=== PATIENT | male | born 1975 | race Caucasian/White ===

== ENCOUNTER 2016-12-13 14:07 | Inpatient (IN) ==
[2016-12-13 15:12] LABS: Bilirubin,Urine Negative (Negative); Blood,Urine Negative (Negative); Clarity,Urine Clear (Clear); Color,Urine Yellow (Yellow); Glucose,Urine (UA) >=1000 mg/dL (Normal); Ketones,Urine Negative (Negative); Leukocyte Esterase,Urine Negative (Negative); Nitrite,Urine Negative (Negative); Protein,Urine Negative (Neg-Trace); Specific Gravity,Urine > 1.030 (1.010-1.025); Urobilinogen,Urine Normal (Normal)
[2016-12-13 15:16] LABS: Amphetamine Screen,Urine Negative ng/mL (Cutoff=1000); Barbiturate Screen,Urine Negative ng/mL (Cutoff=200); Benzodiazepines Screen,Urine Negative ng/mL (Cutoff=200); Cannabinoid Screen,Urine Negative ng/mL (Cutoff = 50); Cocaine Screen,Urine Negative ng/mL (Cutoff= 300); Opiate Screen,Urine Negative ng/mL (Cutoff=300); Phencyclidine Screen,Urine Negative ng/mL (Cutoff=25)
[2016-12-13 15:38] LABS: Basophils # 0.1 K/mcL (0.0-0.2); Basophils % 0.5 %; Eosinophils # 0.1 K/mcL (0.0-0.6); Eosinophils % 1.5 %; Hematocrit 43.3 % (37.5-50.1); Hemoglobin 15.1 g/dL (12.9-16.9); Immature Granulocytes % 0.8 % (0-4); Lymphocytes # 1.8 K/mcL (0.6-4.6); Lymphocytes % 19.2 %; Mean Corpuscular HGB Conc 34.9 g/dL (31.6-35.5); Mean Corpuscular Hemoglobin 30.3 pg (28.0-33.3); Mean Corpuscular Volume 86.8 fL (83.0-100.0); Mean Platelet Volume 9.3 fL (9.4-12.4); Monocytes # 0.7 K/mcL (0.0-1.3); Monocytes % 7.2 %; Neutrophils # 6.6 K/mcL (1.6-8.9); Platelet Count 220 K/mcL (140-400); Red Blood Count 4.99 M/mcL (4.19-5.50); Segmented Neutrophils % 70.8 %
[2016-12-13 15:51] LABS: BUN/Creatinine Ratio 22 (6-26); Blood Urea Nitrogen 34 mg/dL (8-26); Calcium 9.3 mg/dL (8.6-10.8); Carbon Dioxide 21 mEq/L (19-29); Chloride 105 mEq/L (98-109); Glucose 237 mg/dL (70-99); Osmolality,Calculated 295 (280-300); Sodium 135 mEq/L (136-145); eGFR For African Americans 60 (> 60); eGFR For Non-African Americans 49 (> 60)
[2016-12-13 15:52] LABS: Ethanol < 10 mg/dL (0-10); Salicylate < 5.0 mg/dL (15-30)
--- NOTE | 2016-12-13 16:26 | Emergency Department Note ---
Disposition Clinical Impression: Suicidal ideation Disposition: Admitted As Inpatient Condition: Good Time of Disposition: 19:30 Psych HPI - General Chief Complaint: ED Psychiatric Symptoms Stated Complaint: SI Time Seen by Provider: 12/13/16 14:36 Source: patient Limitations: no limitations Nursing Notes Reviewed: Yes Vital Signs Reviewed: Yes - History of Present Illness HPI Narrative: 41-year-old male presents with concerns of suicidal ideation. Patient states that he was recently dumped by his significant other and had thoughts about ending his life. Patient states he held a razor to his wrist while contemplating ending his life. He has had multiple episodes of suicidal ideation in the past with previous attempts at cutting his wrists. Patient also had thoughts about overdosing on his medications but did not take any because he did not know which one would be the best to kill himself. - Related Data Home Medications Medication Instructions Recorded Confirmed CarBAMazepine [Tegretol] 200 mg PO BID 06/19/15 01/07/16 Chlorhexidine Gluconate [Peridex] 15 ml MM BID 06/19/15 01/07/16 Glimepiride [Amaryl] 4 mg PO DAILY 06/19/15 01/07/16 LORazepam [Ativan] 1 mg PO Q6HR 06/19/15 01/07/16 Metformin [Glucophage] 1,000 mg PO BIDWM 06/19/15 01/07/16 Metoprolol [Lopressor] 25 mg PO BID 06/19/15 01/07/16 OLANZapine [Zyprexa] 10 mg PO DAILY 06/19/15 01/07/16 SitaGLIPtin [Januvia] 100 mg PO DAILY 06/19/15 01/07/16 TraZODone 300 mg PO HS 06/19/15 01/07/16 Trihexyphenidyl [Artane] 2 mg PO QPM 06/19/15 01/07/16 Insulin ASPART [NovoLOG] 10 unit SQ TIDWM 11/22/15 01/07/16 Previous Rx's Medication Instructions Recorded Insulin DETEMIR [Levemir] 110 unit SQ BID 30 Days 06/20/15 Allergies Allergy/AdvReac Type Severity Reaction Status Date / Time latex Allergy Rash Verified 09/14/16 08:30 Penicillins [PCN] Allergy Rash Verified 09/14/16 08:30 All systems ED: reviewed and negative except as stated. Constitutional: Denies: fever, chills, weakness Eyes: Denies: eye pain Cardiovascular: Denies: chest pain, palpitations, dyspnea on exertion, orthopnea Respiratory: Denies: cough, dyspnea, wheezes Gastrointestinal: Denies: abdominal pain, nausea, vomiting Genitourinary: Denies: urgency, dysuria Musculoskeletal: Denies: back pain, neck pain Past Medical History - Past Medical History Attestation: Yes The following information was validated with the patient. Source: patient Medical history: Reports: diabetes, hypertension, seizures Surgical history: Reports: colostomy, orthopedic, other, other Psychiatric history: Reports: anxiety, bipolar, depression, schizophrenia - Social History Smoking Status: Never smoker Smokeless Tobacco Status: Yes Alcohol use: Reports: none Drug use: Reports: none Physical Exam General: Alert and in no acute distress Skin: Warm, dry, intact Head: Normocephalic and atraumatic Neck: Supple, trachea midline and no tenderness Cardiovascular: RRR, no murmur, normal perfusion Respiratory: CTAB, no wheezing, cough, or respiratory distress Musculoskeletal: Normal strength, no tenderness, swelling or deformity GI: Soft, nontender, nondistended. Bowel sounds present Neuro: A&O to person, place, time and situation. No focal deficits noted on exam. Finger to nose testing and [id number] testing intact bilaterally. Cranial nerve exam intact to examination. No sensory deficits on exam. Psychiatric: cooperative and appropriate mood and affect. - General Limitations: no limitations General appearance: alert Course Vital Signs Temperature 97.6 F 12/13/16 14:22 Pulse Rate 82 12/13/16 14:22 Respiratory Rate 18 12/13/16 14:22 Blood Pressure 117/76 12/13/16 14:22 O2 Sat by Pulse Oximetry 97 12/13/16 14:22 Temperature 97.8 F 12/13/16 19:31 Pulse Rate 82 12/13/16 14:22 Respiratory Rate 18 12/13/16 19:31 Blood Pressure 114/72 12/13/16 19:31 O2 Sat by Pulse Oximetry 12/13/16 14:22 Oxygen Delivery Oxygen Delivery Room Air Psych - MDM Narrative Medical decision making narrative: Patient seen by behavioral health who found it necessary for the patient to stay in the hospital for continuation of care. Patient is comfortable with the plan for admission to the psychiatric unit. - Lab Data Result diagrams: 12/13/16 15:31 12/13/16 15:31 Lab Results 12/13/16 12/13/16 12/13/16 Range/Units 15:00 15:00 15:31 WBC 9.3 (4.3-11.1) K/mcL RBC 4.99 (4.19-5.50) M/mcL Hgb 15.1 (12.9-16.9) g/dL Hct 43.3 (37.5-50.1) % MCV 86.8 (83.0-100.0) fL MCH 30.3 (28.0-33.3) pg MCHC 34.9 (31.6-35.5) g/dL RDW 14.0 (11.5-14.5) % Plt Count 220 (140-400) K/mcL MPV 9.3 L (9.4-12.4) fL Immature Gran % 0.8 (0-4) % Seg Neutrophils % 70.8 % Lymphocytes % 19.2 % Monocytes % 7.2 % Eosinophils % 1.5 % Basophils % 0.5 % Neutrophils # 6.6 (1.6-8.9) K/mcL Lymphocytes # 1.8 (0.6-4.6) K/mcL Monocytes # 0.7 (0.0-1.3) K/mcL Eosinophils # 0.1 (0.0-0.6) K/mcL Basophils # 0.1 (0.0-0.2) K/mcL Sodium (136-145) mEq/L Potassium (3.5-4.5) mEq/L Chloride (98-109) mEq/L Carbon Dioxide (19-29) mEq/L BUN (8-26) mg/dL Creatinine (0.72-1.25) mg/dL Est GFR ( Amer) (> 60) Est GFR (Non-Af Amer) (> 60) BUN/Creatinine Ratio (6-26) Glucose (70-99) mg/dL Calculated Osmolality (280-300) Calcium (8.6-10.8) mg/dL Urine Color Yellow (Yellow) Urine Clarity Clear (Clear) Urine pH 6.0 (5.0-8.0) pH Units Ur Specific [place] > 1.030 H (1.010-1.025) Urine Protein Negative (Neg-Trace) mg/dL Urine Glucose (UA) >=1000 H (Normal) mg/dL Urine Ketones Negative (Negative) mg/dL Urine Blood Negative (Negative) Urine Nitrite Negative (Negative) Urine Bilirubin Negative (Negative) Urine Urobilinogen Normal (Normal) mg/dL Ur Leukocyte Esterase Negative (Negative) Salicylates (15-30) mg/dL Urine Opiates Screen Negative (Fpvrgw=589) ng/mL Acetaminophen (10-30) mcg/mL Ur Barbiturates Screen Negative (Dnuvuw=075) ng/mL Ur Phencyclidine Scrn Negative (Cutoff=25) ng/mL Ur Amphetamines Screen Negative (Vozdjc=8027) ng/mL U Benzodiazepines Scrn Negative (Ikbwqd=791) ng/mL Urine Cocaine Screen Negative (Cutoff= 300) ng/mL U Marijuana (THC) Screen Negative (Cutoff = 50) ng/mL Ethyl Alcohol (0-10) mg/dL 12/13/16 Range/Units 15:31 WBC (4.3-11.1) K/mcL RBC (4.19-5.50) M/mcL Hgb (12.9-16.9) g/dL Hct (37.5-50.1) % MCV (83.0-100.0) fL MCH (28.0-33.3) pg MCHC (31.6-35.5) g/dL RDW (11.5-14.5) % Plt Count (140-400) K/mcL MPV (9.4-12.4) fL Immature Gran % (0-4) % Seg Neutrophils % % Lymphocytes % % Monocytes % % Eosinophils % % Basophils % % Neutrophils # (1.6-8.9) K/mcL Lymphocytes # (0.6-4.6) K/mcL Monocytes # (0.0-1.3) K/mcL Eosinophils # (0.0-0.6) K/mcL Basophils # (0.0-0.2) K/mcL Sodium 135 L (136-145) mEq/L Potassium 5.0 H (3.5-4.5) mEq/L Chloride 105 (98-109) mEq/L Carbon Dioxide 21 (19-29) mEq/L BUN 34 H (8-26) mg/dL Creatinine 1.55 H (0.72-1.25) mg/dL Est GFR ( Amer) 60 (> 60) Est GFR (Non-Af Amer) 49 L (> 60) BUN/Creatinine Ratio 22 (6-26) Glucose 237 H (70-99) mg/dL Calculated Osmolality 295 (280-300) Calcium 9.3 (8.6-10.8) mg/dL Urine Color (Yellow) Urine Clarity (Clear) Urine pH (5.0-8.0) pH Units Ur Specific [place] (1.010-1.025) Urine Protein (Neg-Trace) mg/dL Urine Glucose (UA) (Normal) mg/dL Urine Ketones (Negative) mg/dL Urine Blood (Negative) Urine Nitrite (Negative) Urine Bilirubin (Negative) Urine Urobilinogen (Normal) mg/dL Ur Leukocyte Esterase (Negative) Salicylates < 5.0 L (15-30) mg/dL Urine Opiates Screen (Deincf=746) ng/mL Acetaminophen 7.0 L (10-30) mcg/mL Ur Barbiturates Screen (Gnfupz=396) ng/mL Ur Phencyclidine Scrn (Cutoff=25) ng/mL Ur Amphetamines Screen (Vzrqtf=3977) ng/mL U Benzodiazepines Scrn (Mjmhkw=466) ng/mL Urine Cocaine Screen (Cutoff= 300) ng/mL U Marijuana (THC) Screen (Cutoff = 50) ng/mL Ethyl Alcohol < 10 (0-10) mg/dL - EKG Data EKG attestation: Yes I reviewed and interpreted this EKG. EKG results narrative: ECG - interpreted by ED physician. Rate 103 sinus tachycardia QRS 105 QTc 350 Psychiatric Medical Clearance - Medical Clearance Checklist Medical History: No Social History Section defined Current Vitals: Last Vital Signs Temp 97.8 F 12/13/16 19:31 Pulse 82 12/13/16 14:22 Resp 18 12/13/16 19:31 BP 114/72 12/13/16 19:31 Pulse Ox 97 12/13/16 14:22 Psychiatric Lab Panel: Drug Levels and Toxicity 12/13/16 12/13/16 15:00 15:31 Urine Opiates Screen Negative Acetaminophen 7.0 L Ur Barbiturates Screen Negative Ur Phencyclidine Scrn Negative Ur Amphetamines Screen Negative U Benzodiazepines Scrn Negative Urine Cocaine Screen Negative U Marijuana (THC) Screen Negative Ethyl Alcohol < 10 Abnormal Labs: Abnormal lab results MPV 9.3 fL (9.4-12.4) L 12/13/16 15:31 Sodium 135 mEq/L (136-145) L 12/13/16 15:31 Potassium 5.0 mEq/L (3.5-4.5) H 12/13/16 15:31 BUN 34 mg/dL (8-26) H 12/13/16 15:31 Creatinine 1.55 mg/dL (0.72-1.25) H 12/13/16 15:31 Est GFR (Non-Af Amer) 49 (> 60) L 12/13/16 15:31 Glucose 237 mg/dL (70-99) H 12/13/16 15:31 Ur Specific [place] > 1.030 (1.010-1.025) H 12/13/16 15:00 Urine Glucose (UA) >=1000 mg/dL (Normal) H 12/13/16 15:00 Salicylates < 5.0 mg/dL (15-30) L 12/13/16 15:31 Acetaminophen 7.0 mcg/mL (10-30) L 12/13/16 15:31 Statement of Medical Clearance: I have evaluated the patient, reviewed diagnostic information, and certify that the patient's medical condition is sufficiently stable that transfer to the psychiatric unit does not pose a significant risk of deterioration.
[2016-12-13] MEDS ORDERED: Haloperidol Lactate 5 MG/ML VIAL IM PRN (21:04)
[2016-12-13] MEDS ORDERED: Ibuprofen 400 MG TABLET PO PRN (21:04)
[2016-12-13] MEDS ORDERED: *HR* LORazepam 2 MG/ML VIAL IM PRN (21:04)
[2016-12-13] MEDS ORDERED: hydrOXYzine pamoate 25 MG CAPSULE PO PRN (21:04)
[2016-12-13] MEDS ORDERED: *HR* LORazepam 1 MG TABLET PO PRN (21:04)
[2016-12-13] MEDS ORDERED: Mag Hydrox/Al Hydrox/Simeth 30 ML UDC PO PRN (21:04)
[2016-12-13] MEDS ORDERED: MOM Conc 10 ML UD.LIQ PO PRN (21:04)
[2016-12-13] MEDS ORDERED: Dextrose Gel 15 GM PO PRN ×2 (21:08)
[2016-12-13] MEDS ORDERED: Insulin LISPRO 300 UNITS/3 ML VIAL SQ SCH (21:15)
[2016-12-13] MEDS: traZODone 50 MG TABLET PO PRN ×2 (21:42→23:45)
[2016-12-13] MEDS ORDERED: traZODone 50 MG TABLET PO PRN (23:17)
[2016-12-13] MEDS ORDERED: NON-FORMULARY MEDICATION 1 EACH EACH (Quetiapine Fumarate [Seroquel] 400 MG) PO SCH (23:30)
[2016-12-13] MEDS: Gabapentin 300 MG CAPSULE PO SCH (23:45)
[2016-12-13] MEDS: Famotidine 20 MG TABLET PO SCH (23:45)
[2016-12-14] MEDS ORDERED: Insulin LISPRO 300 UNITS/3 ML VIAL SQ SCH (07:30)
[2016-12-14] MEDS: Fenofibrate 54 MG TABLET PO SCH (08:25)
[2016-12-14] MEDS: Gabapentin 300 MG CAPSULE PO SCH ×2 (08:26→20:30)
[2016-12-14] MEDS: Famotidine 20 MG TABLET PO SCH ×2 (08:27→20:30)
[2016-12-14] MEDS: *HR* Metformin 500 MG TABLET PO SCH ×2 (08:27→16:40)
[2016-12-14] MEDS: INVOKANA 100 MG PO SCH (08:27)
[2016-12-14] MEDS: FLUoxetine 20 MG CAPSULE PO SCH (08:27)
[2016-12-14] MEDS: *HR* LORazepam 1 MG TABLET PO SCH ×3 (08:30→20:36)
--- NOTE | 2016-12-14 11:00 | Psychiatry History & Physical ---
Date of Encounter: 12/14/16 Time of Encounter: 10:56 History of Present Illness Patient Stated Chief Complaint: Suicidal Medicare Admission Attestation: For traditional Medicare patients the provided hospital inpatient services are reasonable and necessary and in the case of services not specified as inpatient -only under 42 CFR 419.22 (n), that they are appropriately provided as inpatient services in accordance 42 CFR 412.3. For Critical Access Hospital the patient may reasonably be expected to be discharged or transferred to a hospital within 96 hours after admission to the Critical Access Hospital. Admitted From: Emergency Dept History of Present Illness: Mr. Chow is a 41 year old male admitted from the emergency room for depression with suicidal ideation. His girlfriend broke up with him and he felt hopeless and hopeless and became suicidal, is also homeless. Patient has a history of mental health treatment and hospitalization in the past, he also attends group therapy every day and was followed by psychiatrist as outpatient and on medication. He denies any use of alcohol or drugs and is compliant with his medication. Past Med Surg Social Fam HX - Past Medical History Medical history: diabetes, hypertension, seizures - Past Psychiatric History Psychiatric history: Reports: depression, previous psychiatric hospitalization - Past Surgical History Surgical History: colostomy, orthopedic, other, other - Social History Smoking Status: Never smoker Smokeless Tobacco Status: Yes Alcohol use: none Drug use: none Medications & Allergies Atorvastatin [Lipitor] 40 mg PO HS 12/13/16 [History] Canagliflozin [Invokana] 100 mg PO DAILY 12/13/16 [History] FLUoxetine HCl [PROzac] 60 mg PO DAILY 12/13/16 [History] Famotidine [Heartburn Prevention] 20 mg PO BID 12/13/16 [History] Fenofibrate Nanocrystallized [Tricor] 145 mg PO DAILY 12/13/16 [History] Gabapentin [Neurontin] 300 mg PO BID 12/13/16 [History] Insulin Regular U-500 [HumuLIN R U-500] 0 unit 12/13/16 [History] LORazepam [Ativan] 1 mg PO 0900,1500,2100 12/13/16 [History] Lisinopril [Zestril] 10 mg PO DAILY 12/13/16 [History] Meloxicam 15 mg PO DAILY 12/13/16 [History] Metformin [Glucophage] 1,000 mg PO BIDWM 12/13/16 [History] Metoprolol [Lopressor] 25 mg PO BID 12/13/16 [History] Quetiapine Fumarate [Seroquel] 400 mg PO BID 12/13/16 [History] Trazodone HCl 300 mg PO HS PRN 12/13/16 [History] Trihexyphenidyl [Artane] 2 mg PO HS 12/13/16 [History] Insulin ASPART [Novolog Flexpen] 0 unit SQ TID 12/14/16 [History] Allergies latex Allergy (Verified 12/14/16 10:06) Rash Penicillins [PCN] Allergy (Verified 12/14/16 10:06) Rash Review of Systems Psychiatric: Reports: suicidal ideation Mental Status Exam Patient orientation: Yes Person, Yes Time, Yes Place Level of alertness: Alert Patient appearance: Appropriate, Unkempt, Disheveled Behavior: calm, cooperative, withdrawn Psychomotor activity: Slowed Eye contact: Maintains Eye Contact Mood description: Depressed, Anxious, Irritable Affect description: constricted, anxious Speech pattern: Normal rate, Normal rhythm, Normal tone, Limited Speech volume: Normal Thought process: Linear, Goal Oriented Thought content: Yes Suicidal ideation, No Homicidal ideation, No Overt delusions, Yes Obsessive thoughts Perceptual disturbances: No Auditory hallucinations, No Visual hallucinations Attention span: Capable of Focused Attention Memory description: Grossly Intact Patient reliability: Reliable Historian Intelligence estimate: Average Judgment: Limited Insight: Partial Results - Vital Signs Vital signs: Temp Pulse Resp BP Pulse Ox 98.4 F 103 18 116/80 97 12/14/16 08:11 12/14/16 08:11 12/14/16 08:11 12/14/16 08:11 12/13/16 14:22 - Labs Labs: Laboratory Last Values WBC 9.3 K/mcL (4.3-11.1) 12/13/16 15:31 RBC 4.99 M/mcL (4.19-5.50) 12/13/16 15:31 Hgb 15.1 g/dL (12.9-16.9) 12/13/16 15:31 Hct 43.3 % (37.5-50.1) 12/13/16 15:31 MCV 86.8 fL (83.0-100.0) 12/13/16 15:31 MCH 30.3 pg (28.0-33.3) 12/13/16 15: MCHC 34.9 g/dL (31.6-35.5) 12/13/16 15: RDW 14.0 % (11.5-14.5) 12/13/16 15:31 Plt Count 220 K/mcL (140-400) 12/13/16 15:31 MPV 9.3 fL (9.4-12.4) L 12/13/16 15: Immature Gran % 0.8 % (0-4) 12/13/16 15: Seg Neutrophils % 70.8 % 12/13/16 15: Lymphocytes % 19.2 % 12/13/16 15: Monocytes % 7.2 % 12/13/16 15: Eosinophils % 1.5 % 12/13/16 15: Basophils % 0.5 % 12/13/16 15: Neutrophils # 6.6 K/mcL (1.6-8.9) 12/13/16 15: Lymphocytes # 1.8 K/mcL (0.6-4.6) 12/13/16 15: Monocytes # 0.7 K/mcL (0.0-1.3) 12/13/16 15: Eosinophils # 0.1 K/mcL (0.0-0.6) 12/13/16 15: Basophils # 0.1 K/mcL (0.0-0.2) 12/13/16 15:31 Sodium 135 mEq/L (136-145) L 12/13/16 15:31 Potassium 5.0 mEq/L (3.5-4.5) H 12/13/16 15: Chloride 105 mEq/L (98-109) 12/13/16 15:31 Carbon Dioxide 21 mEq/L (19-29) 12/13/16 15:31 BUN 34 mg/dL (8-26) H 12/13/16 15:31 Creatinine 1.55 mg/dL (0.72-1.25) H 12/13/16 15:31 Est GFR ( Amer) 60 (> 60) 12/13/16 15:31 Est GFR (Non-Af Amer) 49 (> 60) L 12/13/16 15:31 BUN/Creatinine Ratio 22 (6-26) 12/13/16 15:31 Glucose 237 mg/dL (70-99) H 12/13/16 15:31 POC Glucose 250 (58-89) H 12/14/16 05:57 Calculated Osmolality 295 (280-300) 12/13/16 15:31 Calcium 9.3 mg/dL (8.6-10.8) 12/13/16 15:31 Urine Color Yellow (Yellow) 12/13/16 15:00 Urine Clarity Clear (Clear) 12/13/16 15:00 Urine pH 6.0 pH Units (5.0-8.0) 12/13/16 15:00 Ur Specific [place] > 1.030 (1.010-1.025) H 12/13/16 15:00 Urine Protein Negative mg/dL (Neg-Trace) 12/13/16 15:00 Urine Glucose (UA) >=1000 mg/dL (Normal) H 12/13/16 15:00 Urine Ketones Negative mg/dL (Negative) 12/13/16 15:00 Urine Blood Negative (Negative) 12/13/16 15:00 Urine Nitrite Negative (Negative) 12/13/16 15:00 Urine Bilirubin Negative (Negative) 12/13/16 15:00 Urine Urobilinogen Normal mg/dL (Normal) 12/13/16 15:00 Ur Leukocyte Esterase Negative (Negative) 12/13/16 15:00 Salicylates < 5.0 mg/dL (15-30) L 12/13/16 15:31 Urine Opiates Screen Negative ng/mL (Pwcxwl=095) 12/13/16 15:00 Acetaminophen 7.0 mcg/mL (10-30) L 12/13/16 15:31 Ur Barbiturates Screen Negative ng/mL (Tvzave=137) 12/13/16 15:00 Ur Phencyclidine Scrn Negative ng/mL (Cutoff=25) 12/13/16 15:00 Ur Amphetamines Screen Negative ng/mL (Xfydni=5451) 12/13/16 15:00 U Benzodiazepines Scrn Negative ng/mL (Leepar=987) 12/13/16 15:00 Urine Cocaine Screen Negative ng/mL (Cutoff= 300) 12/13/16 15:00 U Marijuana (THC) Screen Negative ng/mL (Cutoff = 50) 12/13/16 15:00 Ethyl Alcohol < 10 mg/dL (0-10) 12/13/16 15:31 Assessment and Plan (1) Major depression, recurrent Current visit: Yes Status: Acute Plan: Admit inpatient for safety and stabilization, Close observation, Suicide Precautions per unit protocol, Encourage participation in unit milieu, Group Therapy, Monitor sleep, Monitor appetite Qualifiers: Active/Remission status: currently active Major depression episode severity : severe Psychotic features: with psychotic features Qualified Code(s): F33.3 - Major depressive disorder, recurrent, severe with psychotic symptoms
[2016-12-14] MEDS ORDERED: Dextrose Gel 15 GM PO PRN ×2 (11:41)
[2016-12-14] MEDS: Nicotine 2 MG GUM BC PRN ×2 (12:26→14:37)
--- NOTE | 2016-12-14 16:21 | Electrocardiograph Report ---
[address] [place], [place] [address] Test Date: 2016-12-13 Pat Name: Delvis Chow Department: 105 Room: 1A24 Gender: M Identity Management Consultant: : [id number] Requested By: Stevenson Abrams Order Number: [id number] Reading MD: Stevenson Bhatia Measurements Intervals [place] Rate: 103 P: 36 IL: 189 QRS: 19 QRSD: 105 T: 51 QT: 338 QTc: 398 Interpretive Statements SINUS TACHYCARDIA ABNORMAL RHYTHM ECG Electronically Signed On 12-14-2016 16:19:41 EST by Stevenson Bhatia
[2016-12-14] MEDS: Insulin LISPRO 300 UNITS/3 ML VIAL SQ SCH ×2 (16:40→20:28)
[2016-12-15] MEDS: Nicotine 2 MG GUM BC PRN ×5 (06:19→20:13)
[2016-12-15] MEDS: Insulin LISPRO 300 UNITS/3 ML VIAL SQ SCH ×4 (08:16→21:08)
[2016-12-15] MEDS: FLUoxetine 20 MG CAPSULE PO SCH (08:48)
[2016-12-15] MEDS: Fenofibrate 54 MG TABLET PO SCH (08:48)
[2016-12-15] MEDS: Gabapentin 300 MG CAPSULE PO SCH ×2 (08:48→21:02)
[2016-12-15] MEDS: *HR* Metformin 500 MG TABLET PO SCH ×2 (08:48→16:43)
[2016-12-15] MEDS: Famotidine 20 MG TABLET PO SCH ×2 (08:48→21:02)
[2016-12-15] MEDS: *HR* LORazepam 1 MG TABLET PO SCH ×3 (08:50→22:17)
[2016-12-15] MEDS: INVOKANA 100 MG PO SCH (08:50)
--- NOTE | 2016-12-15 12:48 | Psychiatry Progress Note ---
Date of Encounter: 12/15/16 Time of Encounter: 12:44 Subjective Interval history: Patient is here for follow-up. Nursing staff reported patient is not compliant with his his diabetic diets and consume high carbohydrate snacks. The patient stated that he was able to sleep and participated in some groups. He continued to display depressed towards and an anxiety and he is concerned about his living situation after he was kicked out of his girlfriend house. Social work is trying to place him in a crisis Bed. He is taking his medication his ADLs are poor disheveled and unkempt. He is denying suicidal ideation but continued to be depressed. Review of Systems Psychiatric: Reports: depression, anxiety, abnormal sleep pattern Objective: Exam Patient orientation: Yes Person, Yes Time, Yes Place Level of alertness: Alert Patient appearance: Unkempt, Disheveled Behavior: calm, cooperative, guarded, withdrawn Psychomotor activity: Slowed Eye contact: Maintains Eye Contact Mood description: Depressed, Anxious, Irritable Affect description: constricted, anxious Speech pattern: Normal rate, Normal rhythm, Normal tone, Limited Speech volume: Normal Thought process: Linear, Goal Oriented, Circumstantial Thought content: No Homicidal ideation, No Overt delusions, Yes Obsessive thoughts Perceptual disturbances: No Auditory hallucinations, No Visual hallucinations Judgment: Limited Insight: Partial Results - Vital Signs Vital Signs: Temp Pulse Resp BP Pulse Ox 97.4 F L 80 16 125/83 97 12/15/16 08:23 12/15/16 08:23 12/15/16 08:23 12/15/16 08:23 12/13/16 14:22 - Labs Labs: Laboratory Results - last 24 hr 12/14/16 12/14/16 12/15/16 16:19 19:45 07:45 POC Glucose 210 H 185 H 324 H 12/15/16 11:39 POC Glucose 308 H Assessment and Plan (1) Major depression, recurrent Current visit: Yes Status: Acute Plan: Continue hospitalization, Close observation, Suicide Precautions per unit protocol, Encourage participation in unit milieu, Group Therapy, Monitor sleep, Monitor appetite Qualifiers: Active/Remission status: currently active Major depression episode severity : severe Psychotic features: with psychotic features Qualified Code(s): F33.3 - Major depressive disorder, recurrent, severe with psychotic symptoms Consult Discharge Plan - Plan Referrals: [facility] [Outside] - 12/22/16 8:00 am (The above appointemnt is with Mandy. You will also see Nury Sidhu, psychiatric prescriber, on 2016 at 12:00pm.)
[2016-12-16] MEDS: Insulin LISPRO 300 UNITS/3 ML VIAL SQ SCH ×4 (08:04→20:47)
[2016-12-16] MEDS: *HR* Metformin 500 MG TABLET PO SCH ×2 (08:13→16:42)
[2016-12-16] MEDS: FLUoxetine 20 MG CAPSULE PO SCH (08:15)
[2016-12-16] MEDS: Fenofibrate 54 MG TABLET PO SCH (08:15)
[2016-12-16] MEDS: Gabapentin 300 MG CAPSULE PO SCH ×2 (08:15→20:44)
[2016-12-16] MEDS: Famotidine 20 MG TABLET PO SCH ×2 (08:16→20:44)
[2016-12-16] MEDS: Nicotine 2 MG GUM BC PRN ×5 (08:16→20:43)
[2016-12-16] MEDS: *HR* LORazepam 1 MG TABLET PO SCH ×3 (08:21→20:46)
[2016-12-16] MEDS: INVOKANA 100 MG PO SCH (08:22)
--- NOTE | 2016-12-16 14:56 | Psychiatry Progress Note ---
Date of Encounter: 12/16/16 Time of Encounter: 14:53 Subjective Interval history: Patient seen for follow-up. Nursing staff report he is participating in groups and compliant with medication. He has been denying suicidal ideation but he is concerned about his living situation and awaiting open beds at the crisis unit. Patient denies any problems sleeping and display depressed mood and affect and and anxiety. I discussed with him practice problem solving and options for treatment. Review of Systems Psychiatric: Reports: depression, anxiety, abnormal sleep pattern Objective: Exam Patient orientation: Yes Person, Yes Time, Yes Place Level of alertness: Alert Patient appearance: Appropriate, Unkempt Behavior: calm, cooperative, anxious, guarded, withdrawn Psychomotor activity: Slowed Eye contact: Maintains Eye Contact Mood description: Depressed, Anxious, Irritable Affect description: constricted, anxious Speech pattern: Normal rate, Normal rhythm, Normal tone, Limited Speech volume: Normal Thought process: Linear, Goal Oriented, Circumstantial Thought content: No Homicidal ideation, No Overt delusions, Yes Obsessive thoughts Perceptual disturbances: No Auditory hallucinations, No Visual hallucinations Judgment: Limited Insight: Partial Results - Vital Signs Vital Signs: Temp Pulse Resp BP Pulse Ox 97.6 F 18 79 121/88 97 12/16/16 09:00 12/16/16 09:00 12/16/16 09:00 12/16/16 09:00 12/13/16 14:22 - Labs Labs: Laboratory Results - last 24 hr 12/15/16 12/15/16 12/16/16 16:22 20:08 07:55 POC Glucose 222 H 274 H 285 H 12/16/16 11:38 POC Glucose 272 H Assessment and Plan (1) Major depression, recurrent Current visit: Yes Status: Acute Plan: Continue hospitalization, Close observation, Suicide Precautions per unit protocol, Encourage participation in unit milieu, Group Therapy, Monitor sleep, Monitor appetite Qualifiers: Active/Remission status: currently active Major depression episode severity : severe Psychotic features: with psychotic features Qualified Code(s): F33.3 - Major depressive disorder, recurrent, severe with psychotic symptoms Consult Discharge Plan - Plan Referrals: [facility] [Outside] - 12/22/16 8:00 am (The above appointemnt is with Mandy. You will also see Nury Sidhu, psychiatric prescriber, on 2016 at 12:00pm.)
[2016-12-17] MEDS: Nicotine 2 MG GUM BC PRN ×7 (02:46→20:37)
[2016-12-17] MEDS: Insulin LISPRO 300 UNITS/3 ML VIAL SQ SCH ×4 (08:07→20:38)
[2016-12-17] MEDS: *HR* Metformin 500 MG TABLET PO SCH ×2 (08:19→16:31)
[2016-12-17] MEDS: INVOKANA 100 MG PO SCH (08:24)
[2016-12-17] MEDS: Famotidine 20 MG TABLET PO SCH ×2 (08:33→20:32)
[2016-12-17] MEDS: FLUoxetine 20 MG CAPSULE PO SCH (08:33)
[2016-12-17] MEDS: *HR* LORazepam 1 MG TABLET PO SCH ×3 (08:33→20:34)
[2016-12-17] MEDS: Gabapentin 300 MG CAPSULE PO SCH ×2 (08:33→20:32)
[2016-12-17] MEDS: Fenofibrate 54 MG TABLET PO SCH (08:34)
--- NOTE | 2016-12-17 14:53 | Psychiatry Progress Note ---
Date of Encounter: 12/17/16 Time of Encounter: 14:50 Subjective Interval history: Patient is here for follow-up. Nursing staff report he is minimally participating in groups, he is preoccupied with his living situation and awaiting available crisis bed. He is compliant with medication but noncompliant with his diet and consume large amounts of carbohydrate snacks and he is blood sugars are elevated he was redirected and advised regarding this issue several times. He denies suicidal ideation but his passive regarding work and on his current needs and seeking answers from the staff. Review of Systems Psychiatric: Reports: depression, anxiety, abnormal sleep pattern Objective: Exam Patient orientation: Yes Person, Yes Time, Yes Place Level of alertness: Alert Patient appearance: Appropriate, Unkempt Behavior: calm, cooperative, anxious, guarded, withdrawn Psychomotor activity: Slowed Eye contact: Maintains Eye Contact Mood description: Depressed, Anxious, Irritable Affect description: constricted, anxious Speech pattern: Normal rate, Normal rhythm, Normal tone, Limited Speech volume: Normal Thought process: Linear, Goal Oriented, Circumstantial Thought content: No Homicidal ideation, No Overt delusions, Yes Obsessive thoughts Perceptual disturbances: No Auditory hallucinations, No Visual hallucinations Judgment: Limited Insight: Partial Results - Vital Signs Vital Signs: Temp Pulse Resp BP Pulse Ox 97.9 F 94 18 116/70 97 12/17/16 08:36 12/17/16 08:36 12/17/16 08:36 12/17/16 08:36 12/13/16 14:22 - Labs Labs: Laboratory Results - last 24 hr 12/16/16 12/16/16 12/17/16 16:31 20:01 07:45 POC Glucose 253 H 330 H 404 H* 12/17/16 12/17/16 07:48 11:40 POC Glucose 337 H 315 H Assessment and Plan (1) Major depression, recurrent Current visit: Yes Status: Acute Plan: Continue hospitalization, Close observation, Suicide Precautions per unit protocol, Encourage participation in unit milieu, Group Therapy, Monitor sleep, Monitor appetite Qualifiers: Active/Remission status: currently active Major depression episode severity : severe Psychotic features: with psychotic features Qualified Code(s): F33.3 - Major depressive disorder, recurrent, severe with psychotic symptoms Consult Discharge Plan - Plan Referrals: [facility] [Outside] - 12/22/16 8:00 am (The above appointemnt is with Mandy. You will also see Nury Sidhu, psychiatric prescriber, on 2016 at 12:00pm.)
[2016-12-18] MEDS: *HR* Metformin 500 MG TABLET PO SCH ×2 (07:13→16:56)
[2016-12-18] MEDS: Nicotine 2 MG GUM BC PRN ×5 (07:26→19:26)
[2016-12-18] MEDS: Fenofibrate 54 MG TABLET PO SCH (08:52)
[2016-12-18] MEDS: Gabapentin 300 MG CAPSULE PO SCH ×2 (08:53→20:31)
[2016-12-18] MEDS: Famotidine 20 MG TABLET PO SCH ×2 (08:55→20:31)
[2016-12-18] MEDS: FLUoxetine 20 MG CAPSULE PO SCH (08:55)
[2016-12-18] MEDS: INVOKANA 100 MG PO SCH (08:56)
[2016-12-18] MEDS: Insulin LISPRO 300 UNITS/3 ML VIAL SQ SCH ×4 (08:56→20:34)
[2016-12-18] MEDS: *HR* LORazepam 1 MG TABLET PO SCH ×3 (08:59→20:33)
--- NOTE | 2016-12-18 11:28 | Psychiatry Progress Note ---
Date of Encounter: 12/18/16 Time of Encounter: 10:00 Subjective Interval history: Patient seen and interviewed. History and physical examination reviewed. Patient is reporting of doing pretty decent however complaining of some anxiety and nervousness related to his housing situation. Patient is reassured and counseled that he will be going to [facility] upon discharge and will have a stable living situation. Patient is encouraged to attend groups and participated in activities. He has been tolerating medications fairly well. His suicidal ideations that subsided for most part. Overall doing good. Awaiting placement. Review of Systems Psychiatric: Reports: anxiety Objective: Exam Patient orientation: Yes Person, Yes Time, Yes Place Level of alertness: Alert Patient appearance: Appropriate, Unkempt Behavior: calm, cooperative, anxious, guarded, withdrawn Psychomotor activity: Slowed Eye contact: Maintains Eye Contact Mood description: Depressed, Anxious, Irritable Affect description: constricted, anxious Speech pattern: Normal rate, Normal rhythm, Normal tone, Limited Speech volume: Normal Thought process: Linear, Goal Oriented, Circumstantial Thought content: No Suicidal ideation, No Homicidal ideation, No Overt delusions , Yes Obsessive thoughts Perceptual disturbances: No Auditory hallucinations, No Visual hallucinations Judgment: Limited Insight: Partial Results - Vital Signs Vital Signs: Temp Pulse Resp BP Pulse Ox 97.8 F 79 16 114/80 97 12/18/16 08:28 12/18/16 08:28 12/18/16 08:28 12/18/16 08:28 12/13/16 14:22 - Labs Labs: Laboratory Results - last 24 hr 12/17/16 12/17/16 12/17/16 11:40 16:18 19:47 POC Glucose 315 H 281 H 339 H 12/18/16 12/18/16 12/18/16 07:12 08:45 08:46 POC Glucose 361 H 402 H* 375 H 12/18/16 11:23 POC Glucose 363 H Assessment and Plan (1) Major depression, recurrent Current visit: Yes Status: Acute Plan: Continue hospitalization, Close observation, Suicide Precautions per unit protocol, Encourage participation in unit milieu, Group Therapy, Monitor sleep, Monitor appetite Additional Plan: Continue with current medications. Awaiting placement. Risks, benefits, side effects, alternatives discussed w/pt: Yes Patient agreeable to treatment: Yes Qualifiers: Active/Remission status: currently active Major depression episode severity : severe Psychotic features: with psychotic features Qualified Code(s): F33.3 - Major depressive disorder, recurrent, severe with psychotic symptoms Consult Discharge Plan - Plan Referrals: [facility] [Outside] - 12/22/16 8:00 am (The above appointemnt is with Mandy. You will also see Nury Sidhu, psychiatric prescriber, on 2016 at 12:00pm.)
[2016-12-19] MEDS: *HR* Metformin 500 MG TABLET PO SCH ×2 (08:30→16:46)
[2016-12-19] MEDS: *HR* LORazepam 1 MG TABLET PO SCH ×3 (08:30→20:18)
[2016-12-19] MEDS: FLUoxetine 20 MG CAPSULE PO SCH (08:30)
[2016-12-19] MEDS: Famotidine 20 MG TABLET PO SCH ×2 (08:32→20:13)
[2016-12-19] MEDS: Gabapentin 300 MG CAPSULE PO SCH ×2 (08:32→20:13)
[2016-12-19] MEDS: INVOKANA 100 MG PO SCH (08:33)
[2016-12-19] MEDS: Fenofibrate 54 MG TABLET PO SCH (08:33)
[2016-12-19] MEDS: Nicotine 2 MG GUM BC PRN ×5 (08:34→19:48)
[2016-12-19] MEDS: Insulin LISPRO 300 UNITS/3 ML VIAL SQ SCH ×4 (08:35→20:14)
--- NOTE | 2016-12-19 12:25 | Psychiatry Progress Note ---
Date of Encounter: 12/19/16 Time of Encounter: 12:23 Subjective Interval history: Patient seen and interviewed. Doing okay. Denied any suicidal or homicidal ideations. Appears slightly anxious and nervous but overall feels good. Positive and future oriented. Awaiting placement at [facility]. Review of Systems Psychiatric: Reports: anxiety Objective: Exam Patient orientation: Yes Person, Yes Time, Yes Place Level of alertness: Alert Patient appearance: Appropriate, Unkempt Behavior: calm, cooperative, anxious, guarded, withdrawn Psychomotor activity: Slowed Eye contact: Maintains Eye Contact Mood description: Anxious Affect description: constricted, anxious Speech pattern: Normal rate, Normal rhythm, Normal tone, Limited Speech volume: Normal Thought process: Linear, Goal Oriented, Circumstantial Thought content: No Suicidal ideation, No Homicidal ideation, No Overt delusions , Yes Obsessive thoughts Perceptual disturbances: No Auditory hallucinations, No Visual hallucinations Judgment: Fair Insight: Partial Results - Vital Signs Vital Signs: Temp Pulse Resp BP Pulse Ox 98.4 F 83 18 114/81 97 12/19/16 08:08 12/19/16 08:08 12/19/16 08:08 12/19/16 08:08 12/13/16 14:22 - Labs Labs: Laboratory Results - last 24 hr 12/18/16 12/18/16 12/19/16 16:00 20:10 07:57 POC Glucose 329 H 329 H 362 H 12/19/16 11:28 POC Glucose 329 H Assessment and Plan (1) Major depression, recurrent Current visit: Yes Status: Acute Plan: Continue hospitalization, Close observation, Suicide Precautions per unit protocol, Encourage participation in unit milieu, Group Therapy, Monitor sleep, Monitor appetite Additional Plan: Continue with current medications. Possible discharge tomorrow to [facility]. Risks, benefits, side effects, alternatives discussed w/pt: Yes Patient agreeable to treatment: Yes Qualifiers: Active/Remission status: currently active Major depression episode severity : severe Psychotic features: with psychotic features Qualified Code(s): F33.3 - Major depressive disorder, recurrent, severe with psychotic symptoms Consult Discharge Plan - Plan Referrals: [facility] [Outside] - 12/22/16 8:00 am (The above appointemnt is with Mandy. You will also see Nury Sidhu, psychiatric prescriber, on 2016 at 12:00pm.)
[2016-12-20] MEDS: Nicotine 2 MG GUM BC PRN ×2 (07:21→09:50)
[2016-12-20] MEDS: FLUoxetine 20 MG CAPSULE PO SCH (08:23)
[2016-12-20] MEDS: *HR* Metformin 500 MG TABLET PO SCH (08:24)
[2016-12-20] MEDS: *HR* LORazepam 1 MG TABLET PO SCH (08:25)
[2016-12-20] MEDS: Famotidine 20 MG TABLET PO SCH (08:25)
[2016-12-20] MEDS: Gabapentin 300 MG CAPSULE PO SCH (08:25)
[2016-12-20] MEDS: INVOKANA 100 MG PO SCH (08:26)
[2016-12-20] MEDS: Fenofibrate 54 MG TABLET PO SCH (08:26)
[2016-12-20] MEDS: Insulin LISPRO 300 UNITS/3 ML VIAL SQ SCH (08:26)
[2016-12-20 08:54] VITALS: BP 140/86
--- NOTE | 2016-12-20 10:53 | Discharge Summary ---
Date of Encounter: 12/20/16 Time of Encounter: 10:45 Diagnosis - Discharge Diagnosis (1) Major depression, recurrent Status: Acute Qualifiers: Active/Remission status: currently active Major depression episode severity : severe Psychotic features: with psychotic features Qualified Code(s): F33.3 - Major depressive disorder, recurrent, severe with psychotic symptoms Medications - Discharge Medications Atorvastatin [Lipitor] 40 mg PO HS 12/13/16 [History] Canagliflozin [Invokana] 100 mg PO DAILY 12/13/16 [History] FLUoxetine HCl [Prozac] 60 mg PO DAILY 12/13/16 [History] Famotidine [Heartburn Prevention] 20 mg PO BID 12/13/16 [History] Fenofibrate Nanocrystallized [Tricor] 145 mg PO DAILY 12/13/16 [History] Gabapentin [Neurontin] 300 mg PO BID 12/13/16 [History] Insulin Regular U-500 [HumuLIN R U-500] 0 unit 12/13/16 [History] LORazepam [Ativan] 1 mg PO 0900,1500,2100 12/13/16 [History] Lisinopril [Zestril] 10 mg PO DAILY 12/13/16 [History] Meloxicam 15 mg PO DAILY 12/13/16 [History] Metformin [Glucophage] 1,000 mg PO BIDWM 12/13/16 [History] Metoprolol [Lopressor] 25 mg PO BID 12/13/16 [History] Quetiapine Fumarate [Seroquel] 400 mg PO BID 12/13/16 [History] Trazodone HCl 300 mg PO HS PRN 12/13/16 [History] Trihexyphenidyl [Artane] 2 mg PO HS 12/13/16 [History] Insulin ASPART [Novolog Flexpen] 0 unit SQ TID 12/14/16 [History] Allergies latex Allergy (Verified 12/14/16 10:06) Rash Penicillins [PCN] Allergy (Verified 12/14/16 10:06) Rash Provider Date of admission: 12/13/16 19:18 Primary care physician: PCP NO Consults: 12/13/16 21:49 Consult to Hospitalist [CONS] Routine Consulting Provider: Ade New Reason for Consult: Medication recommendation for insulin Time Notified: 21:51 Call Completed: Yes Discharging clinician: Ken Conley Assessment and Plan - Patient/Caregiver Discharge Instructions Activity: resume usual activities as tolerated Diet: regular diet - Follow up Plan Follow up with: [facility] [Outside] - 12/22/16 8:00 am (The above appointemnt is with Mandy. You will also see Nury Sidhu, psychiatric prescriber, on 2016 at 12:00pm.) Functional capacity at discharge: independent ambulation Overall status at discharge: Stable Disposition: Home, Self-Care Hospital Course Hospital course: Mr. Chow is a 41 year old male admitted to the emergency room for depression and suicidal ideation. For details of admission please see H&P On the units patient was maintained on his medication he participated in activities and his blood sugar was monitored and he was noncompliant with his diabetic diet and he denied any problem with sleep. Patient's discharge plan was completed by the licensed clinical social worker and his follow-up appointments are in place. Prior to discharge patient was medically stable and denies suicidal ideation and planning to continue his follow-up by attending appointments and groups. - Time Spent with Patient Total time spent providing and/or coordinating discharge services: Less than 30 minutes Quality - Multiple Antipsychotics Patient discharged on 2 or more antipsychotic medications: No Procedures - Procedures Procedures: Medication Management, Crisis Stabilization, Supportive Therapy, Group Therapy, Psychoeducational Therapy Mental Status Exam - Mental Status Exam Patient orientation: Yes Person, Yes Time, Yes Place Level of alertness: Alert Patient appearance: Appropriate, Unkempt Behavior: calm, cooperative, anxious, guarded, withdrawn Psychomotor activity: Slowed Eye contact: Maintains Eye Contact Mood description: Anxious Affect description: constricted, anxious Speech pattern: Normal rate, Normal rhythm, Normal tone, Limited Speech Volume: Normal Thought process: Linear, Goal Oriented, Circumstantial Thought Content: No Suicidal ideation, No Homicidal ideation, No Overt delusions , Yes Obsessive thoughts Perceptual Disturbances: No Auditory hallucinations, No Visual hallucinations Judgment: Fair Insight: Partial
== END 2016-12-20 11:40 | disposition home or self-care (01) | DRG 885 ==
LOC: EMEROO 14:07 → SUATTDRO 19:18 → 1ANU 19:18
PROVIDERS: ADMIT Psychiatry & Neurology Psychiatry; ATTEND Psychiatry & Neurology Psychiatry

== ENCOUNTER 2017-05-03 14:05 | Inpatient (IN) ==
[2017-05-03] MEDS ORDERED: 0.9 % Sodium Chloride 1,000 ML IVC ONE (16:31)
[2017-05-03] MEDS ORDERED: *HR* Dextrose 50 % in Water (Syg) 50 ML SYRINGE IVP PRN (17:04)
[2017-05-03] MEDS ORDERED: D5% in 0.45% NACL 1,000 ML IVC PRN (17:04)
[2017-05-03] MEDS ORDERED: Insulin Human Regular 300 UNIT/3 ML per UNIT IV PRN (17:04)
[2017-05-03 17:08] LABS: VBG HCO3 20.7 mEq/L (21-27); VBG PH 7.3 pH Units (7.32-7.42)
[2017-05-03 17:15] LABS: BUN/Creatinine Ratio 19 (6-26); Blood Urea Nitrogen 24 mg/dL (8-26); Calcium 9.1 mg/dL (8.6-10.8); Carbon Dioxide 19 mEq/L (19-29); Chloride 105 mEq/L (98-109); Glucose 226 mg/dL (70-99); Osmolality,Calculated 299 (280-300); Potassium 4.4 mEq/L (3.5-4.5); Sodium 139 mEq/L (136-145); eGFR For African Americans > 60 (> 60); eGFR For Non-African Americans > 60 (> 60)
[2017-05-03] MEDS ORDERED: Insulin Human Regular 100 UNIT in 0.9 % Sodium Chloride 100 ML IVC SCH (17:15)
[2017-05-03] MEDS ORDERED: Nicotine 2 MG GUM BC PRN (17:43)
[2017-05-03] MEDS ORDERED: Naloxone 0.4 MG/ML INJ IVP PRN (17:46)
[2017-05-03] MEDS ORDERED: Acetaminophen 325 MG TABLET PO PRN (17:46)
[2017-05-03] MEDS: 0.9 % Sodium Chloride 1,000 ML IVC SCH ×4 (17:47→23:17)
[2017-05-03] MEDS ORDERED: clonazePAM 1 MG TABLET PO PRN (17:49)
[2017-05-03] MEDS ORDERED: traZODone 50 MG TABLET PO PRN (17:49)
[2017-05-03] MEDS: 0.9 % Sodium Chloride w KCl 20 MEQ/1,000 ML MLS IVC SCH ×4 (17:53→23:18)
--- NOTE | 2017-05-03 18:36 | Pulmonology History & Physical ---
<Eladia Brantley - Last Filed: 05/03/17 17:58> Date of Encounter: 05/03/17 Time of Encounter: 17:58 Assessment and Plan (1) DKA (diabetic ketoacidosis) Current visit: Yes Status: Acute Patient was transferred from [facility] would DKA. Patient's DKA possibly secondary to noncompliant management of his diabetes mellitus type II. Glucose was measured at 233 on initial presentation. DKA protocol was initiated. Patient was started on insulin drip and was given a bolus of normal saline. Stat VBG and STAT BMP was ordered. Continue to monitor patient and follow DKA protocol. Qualifiers: Diabetes mellitus type: type 2 Diabetes mellitus complication detail: without coma Qualified Code(s): E13.10 - Other specified diabetes mellitus with ketoacidosis without coma (2) Suicidal ideation Current visit: Yes Status: Acute Patient has a history of mental health disorders. Patient admits he has suicidal ideation and also homicidal ideation. Patient is currently on suicide precautions and he has a sitter in front of his room. Continue to monitor patients closely. (3) Hypertension Current visit: No Status: Chronic Patient has a history of hypertension. He is currently stable and blood pressure is not elevated. Continue to hold his antihypertensive home medications. Qualifiers: Hypertension type: unspecified Qualified Code(s): I10 - Essential (primary ) hypertension (4) Bipolar 1 disorder Current visit: No Status: Chronic Patient has a past medical history of mental disorders. Continue his psych medications accordingly (5) Acute anxiety Current visit: Yes Status: Acute Ordered hydroxyzine for his anxiety. Continue to monitor the patient closely. History of Present Illness Chief complaint: DKA HPI: Mr. Chow is a 42 year old male who reports a past medical history of diabetes , hypertension, depression and seizures. The patient was transferred from [facility] to [facility] ICU for DKA. The patient was reportedly at [facility] yesterday for DKA as well, but he refused treatment and signed out against medical advice. Per report, the patient only received 8 units of insulin subq and one liter of fluid for patient's DKA before coming to the ICU. The patient was not brought here on an insulin drip. Patient admits that he had a psychotic break down and that is why he left [facility] yesterday. Today he admitted that he is still agitated. He admits that he has suicidal ideations and homicide ideations. He has thoughts of self harm and also hurting others. He denies any specific plan. Patient also admits that he is not compliant with his psychotic medications and diabetic medications. Patient states that he has not eaten or slept in the past 5 days. He denies any changes in his vision, fever, chills, dizziness, headaches, diaphoresis, chest pain, and shortness of breath. On initial presentation, the patient admits he still has suicidal ideations. Thus, the patient is on suicide precautions with a sitter outside of his room. Past Med Surg Social Fam HX - Past Medical History Medical history: diabetes, hypertension, seizures Psychiatric history: depression, previous psychiatric hospitalization - Past Surgical History Surgical History: colostomy, orthopedic, other, other - Social History Smoking Status: Never smoker Smokeless Tobacco Status: Yes Alcohol use: none Drug use: none Medications and Allergies Atorvastatin [Lipitor] 40 mg PO HS 12/13/16 [History] Canagliflozin [Invokana] 100 mg PO DAILY 12/13/16 [History] FLUoxetine HCl [Prozac] 40 mg PO DAILY 12/13/16 [History] Famotidine [Heartburn Prevention] 20 mg PO BID 12/13/16 [History] Fenofibrate Nanocrystallized [Tricor] 145 mg PO DAILY 12/13/16 [History] Gabapentin [Neurontin] 300 mg PO BID 12/13/16 [History] Insulin Regular U-500 [HumuLIN R U-500] 0 unit SQ AD 12/13/16 [History] Lisinopril [Zestril] 10 mg PO DAILY 12/13/16 [History] Meloxicam 15 mg PO DAILY 12/13/16 [History] Metoprolol [Lopressor] 25 mg PO BID 12/13/16 [History] Trazodone HCl 300 mg PO HS PRN 12/13/16 [History] Trihexyphenidyl [Artane] 2 mg PO HS 12/13/16 [History] metFORMIN [Glucophage] 1,000 mg PO BIDWM 12/13/16 [History] Quetiapine Fumarate [Quetiapine Fumarate ER] 800 mg PO HS 05/03/17 [History] clonazePAM [Klonopin] 1 mg PO BID PRN 05/03/17 [History] lamoTRIgine [Lamictal] 150 mg PO DAILY 05/03/17 [History] Allergies latex Allergy (Verified 12/14/16 10:06) Rash Penicillins [PCN] Allergy (Verified 12/14/16 10:06) Rash All Systems: A 10-system review of systems was performed and is negative for pertinent findings except as documented above in the HPI. - Constitutional Constitutional: as per HPI, fatigue, no chills, no excessive sweating, no fever( s), no headache(s), no weakness - EENT Eyes: as per HPI, other (Patient denies any double vision or blurred vision), no loss of vision - Cardiovascular Cardiovascular: no chest pain, no chest pain at rest, no chest pain with activity, no diaphoresis, no dyspnea, no palpitations - Respiratory Respiratory: as per HPI, no cough, no dyspnea, no wheezing - Gastrointestinal Gastrointestinal: no abdominal pain, no diarrhea, no nausea, no vomiting - Neurological Neurological: as per HPI, no dizziness, no loss of vision - Psychiatric Psychiatric: as per HPI, anxiety, depression, suicidal ideation, other (Patient admits homicidal ideations) - Endocrine Endocrine: no excessive sweating Physical Examination Vital Signs: Vital Signs, Last 4 Hours Temp Pulse Resp BP Pulse Ox 05/03/17 17:00 80 18 127/79 99 05/03/17 16:00 80 20 118/64 99 05/03/17 15:31 84 05/03/17 15:27 98.1 F 87 18 135/87 97 General appearance: no acute distress, alert Eyes: nonicteric, other ENT: oropharynx moist Neck: supple, no lymphadenopathy, no JVD Effort: normal Inspection: normal Auscultation: bilateral: clear Cardiovascular: regular rate and rhythm, other (No murmur, gallops, or rubs) Gastrointestinal: normoactive bowel sounds, soft, non-distended Extremities: no cyanosis, no edema, no clubbing, pulses normal Musculoskeletal: no deformities, ROM normal normal mental status, pupils equal and round, CN II-XII normal, motor strength normal and symmetric mood appropriate, affect normal Results - Laboratory Findings CBC and BMP: 05/03/17 16:40 Abnormal lab findings: Abnormal lab results VBG pH 7.30 pH Units (7.32-7.42) L 05/03/17 16:40 VBG pO2 43 mmHg (25-40) H 05/03/17 16:40 VBG HCO3 20.7 mEq/L (21-27) L 05/03/17 16:40 Glucose 226 mg/dL (70-99) H 05/03/17 16:40 POC Glucose 233 (58-89) H 05/03/17 15:29 <Shaan Kruger - Last Filed: 05/04/17 09:23> Date of Encounter: 05/04/17 History of Present Illness HPI: Mr. Chow is a 42 year old male All Systems: A 10-system review of systems was performed and is negative for pertinent findings except as documented above in the HPI. Physical Examination Vital Signs: Vital Signs, Last 4 Hours Temp Pulse Resp BP Pulse Ox 05/04/17 09:00 74 16 122/69 97 05/04/17 08:00 91 18 120/83 99 05/04/17 07:00 62 17 132/90 96 05/04/17 06:58 97.9 F 05/04/17 06:00 79 20 103/61 99 Results - Laboratory Findings CBC and BMP: 05/04/17 03:42 05/04/17 03:42 Abnormal lab findings: Abnormal lab results RBC 4.16 M/mcL (4.19-5.50) L 05/04/17 03:42 Hgb 12.7 g/dL (12.9-16.9) L D 05/04/17 03:42 Hct 37.2 % (37.5-50.1) L 05/04/17 03:42 RDW 14.9 % (11.5-14.5) H 05/04/17 03:42 VBG pH 7.29 pH Units (7.32-7.42) L 05/04/17 03:42 VBG pCO2 54 mmHg (41-51) H 05/04/17 03:42 VBG pO2 68 mmHg (25-40) H 05/04/17 03:42 Glucose 150 mg/dL (70-99) H 05/04/17 03:42 POC Glucose 179 (58-89) H 05/04/17 06:57 Hemoglobin A1c 9.0 % (-5.6) H 05/04/17 03:42
[2017-05-03 19:10] LABS: BUN/Creatinine Ratio 18 (6-26); Blood Urea Nitrogen 21 mg/dL (8-26); Calcium 8.5 mg/dL (8.6-10.8); Carbon Dioxide 19 mEq/L (19-29); Chloride 107 mEq/L (98-109); Glucose 159 mg/dL (70-99); Osmolality,Calculated 294 (280-300); Potassium 3.9 mEq/L (3.5-4.5); Sodium 139 mEq/L (136-145); eGFR For African Americans > 60 (> 60); eGFR For Non-African Americans > 60 (> 60)
[2017-05-03 19:19] LABS: VBG HCO3 18.9 mEq/L (21-27); VBG PH 7.25 pH Units (7.32-7.42)
[2017-05-03] MEDS: D5% in 0.45% NACL w KCl 20 MEQ/1,000 ML MLS IVC PRN (19:40)
[2017-05-03] MEDS: *HR* Heparin 5,000 UNIT/ML VIAL SQ SCH (19:48)
[2017-05-03 23:24] LABS: VBG HCO3 23.2 mEq/L (21-27); VBG PH 7.31 pH Units (7.32-7.42)
[2017-05-03 23:36] LABS: BUN/Creatinine Ratio 17 (6-26); Blood Urea Nitrogen 19 mg/dL (8-26); Calcium 8.4 mg/dL (8.6-10.8); Carbon Dioxide 21 mEq/L (19-29); Chloride 108 mEq/L (98-109); Glucose 173 mg/dL (70-99); Osmolality,Calculated 292 (280-300); Potassium 4.2 mEq/L (3.5-4.5); Sodium 138 mEq/L (136-145); eGFR For African Americans > 60 (> 60); eGFR For Non-African Americans > 60 (> 60)
[2017-05-04] MEDS: D5% in 0.45% NACL w KCl 20 MEQ/1,000 ML MLS IVC PRN (00:03)
[2017-05-04] MEDS ORDERED: D5% in Water 1,000 ML IVC PRN ×2 (00:23→07:43)
[2017-05-04] MEDS ORDERED: *HR* Dextrose 50 % in Water (Syg) 50 ML SYRINGE IVP PRN ×2 (00:23→07:43)
[2017-05-04] MEDS ORDERED: Dextrose Gel 15 GM PO PRN ×4 (00:23→07:43)
[2017-05-04] MEDS ORDERED: Insulin LISPRO 300 UNITS/3 ML VIAL SQ ONE (00:37)
[2017-05-04] MEDS: 0.9 % Sodium Chloride w KCl 20 MEQ/1,000 ML MLS IVC SCH ×2 (03:18→05:48)
[2017-05-04] MEDS: 0.9 % Sodium Chloride 1,000 ML IVC SCH ×2 (03:18→05:48)
[2017-05-04] MEDS ORDERED: Insulin LISPRO 300 UNITS/3 ML VIAL SQ SCH (04:00)
[2017-05-04 05:08] LABS: VBG PH 7.29 pH Units (7.32-7.42)
[2017-05-04 05:09] LABS: Basophils # 0.1 K/mcL (0.0-0.2); Basophils % 0.9 %; Eosinophils # 0.1 K/mcL (0.0-0.6); Hematocrit 37.2 % (37.5-50.1); Hemoglobin 12.7 g/dL (12.9-16.9); Immature Granulocytes % 1.4 % (0-4); Lymphocytes # 2.7 K/mcL (0.6-4.6); Lymphocytes % 47.7 %; Mean Corpuscular HGB Conc 34.1 g/dL (31.6-35.5); Mean Corpuscular Hemoglobin 30.5 pg (28.0-33.3); Mean Corpuscular Volume 89.4 fL (83.0-100.0); Mean Platelet Volume 9.8 fL (9.4-12.4); Monocytes # 0.7 K/mcL (0.0-1.3); Monocytes % 11.9 %; Platelet Count 183 K/mcL (140-400); Red Blood Count 4.16 M/mcL (4.19-5.50); Red Cell Distribution Width 14.9 % (11.5-14.5); Segmented Neutrophils % 36.1 %
[2017-05-04 05:26] LABS: BUN/Creatinine Ratio 17 (6-26); Blood Urea Nitrogen 18 mg/dL (8-26); Calcium 8.7 mg/dL (8.6-10.8); Carbon Dioxide 26 mEq/L (19-29); Chloride 106 mEq/L (98-109); Glucose 150 mg/dL (70-99); Osmolality,Calculated 289 (280-300); Potassium 3.6 mEq/L (3.5-4.5); Sodium 137 mEq/L (136-145); eGFR For African Americans > 60 (> 60); eGFR For Non-African Americans > 60 (> 60)
[2017-05-04] MEDS: *HR* Heparin 5,000 UNIT/ML VIAL SQ SCH ×2 (05:48→17:28)
[2017-05-04] MEDS ORDERED: Famotidine 20 MG TABLET PO SCH (07:30)
[2017-05-04] MEDS ORDERED: Acetaminophen 325 MG TABLET PO PRN (07:43)
[2017-05-04] MEDS ORDERED: traZODone 50 MG TABLET PO PRN (07:43)
[2017-05-04] MEDS ORDERED: Naloxone 0.4 MG/ML INJ IVP PRN (07:43)
[2017-05-04] MEDS: lamoTRIgine 100 MG TABLET PO SCH (08:29)
[2017-05-04] MEDS: Fenofibrate 54 MG TABLET PO SCH (08:29)
[2017-05-04] MEDS: FLUoxetine 20 MG CAPSULE PO SCH (08:30)
[2017-05-04] MEDS: Insulin LISPRO 300 UNITS/3 ML VIAL SQ SCH ×4 (08:31→20:27)
[2017-05-04] MEDS: clonazePAM 1 MG TABLET PO PRN ×3 (08:37→20:24)
--- NOTE | 2017-05-04 08:53 | Pulmonology Progress Note ---
<KemalSherman cornejo Mariano - Last Filed: 05/04/17 09:12> Date of Encounter: 05/04/17 Time of Encounter: 09:12 Assessment and Plan (1) DKA (diabetic ketoacidoses) Current Visit: Yes Status: Acute The patient presented with hyperglycemia, mild acidosis with anion gap. The patient received fluids and IV insulin. DKA is resolved. Transition to subcutaneous insulin last night. Diet started this morning. Patient tolerated well and sugars are under good control at this time. Continue subcutaneous insulin, adjust based on blood sugars. Upon presentation the patient expressed to the ED staff as well as the ICU nurse that he was suicidal. He did not have a plan. When asked about this this morning patient denies suicidal ideation at this time. Given his psychiatric history and clearly expressed suicidal ideation patient need psychiatric evaluation prior to discharge. Qualifiers: Diabetes mellitus type: other specified (including JADON) Diabetes mellitus complication detail: without coma Qualified Code(s): E13.10 - Other specified diabetes mellitus with ketoacidosis without coma (2) Suicidal ideation Current Visit: Yes Status: Acute Subjective Principal diagnosis: DKA Interval history: Patient seen and examined at bedside. Patient states he feels pretty good today. He has no complaints at this time. He states he has not eaten yet and is hungry. He denies suicidal or homicidal ideation to me at this time. Objective PUL Vital signs: Last Vital Signs Temp 97.9 F 05/04/17 06:58 Pulse 91 05/04/17 08:00 Resp 18 05/04/17 08:00 BP 120/83 05/04/17 08:00 Pulse Ox 99 05/04/17 08:00 General appearance: no acute distress ENT: oropharynx moist Effort: normal Auscultation: bilateral: clear Cardiovascular: regular rate and rhythm Gastrointestinal: normoactive bowel sounds, soft, non-tender, non-distended Extremities: no cyanosis, no edema, no clubbing normal mental status, non-focal exam other (Flat affect) Results - Laboratory Findings CBC and BMP: 05/04/17 03:42 05/04/17 03:42 Abnormal lab findings: Abnormal lab results RBC 4.16 M/mcL (4.19-5.50) L 05/04/17 03:42 Hgb 12.7 g/dL (12.9-16.9) L D 05/04/17 03:42 Hct 37.2 % (37.5-50.1) L 05/04/17 03:42 RDW 14.9 % (11.5-14.5) H 05/04/17 03:42 VBG pH 7.29 pH Units (7.32-7.42) L 05/04/17 03:42 VBG pCO2 54 mmHg (41-51) H 05/04/17 03:42 VBG pO2 68 mmHg (25-40) H 05/04/17 03:42 Glucose 150 mg/dL (70-99) H 05/04/17 03:42 POC Glucose 179 (58-89) H 05/04/17 06:57 Hemoglobin A1c 9.0 % (-5.6) H 05/04/17 03:42 - Clinical Findings Intake & Output: Intake & Output 05/03/17 05/04/17 05/04/17 23:59 07:59 15:59 Intake Total 4214.5 / 4214.5 830.5 / 830.5 Output Total 700 / 700 500 / 500 Balance 3514.5 / 3514.5 330.5 / 330.5 Weight 108.862 kg Consult Discharge Plan - Plan Referrals: NO,PCP [Primary Care Provider] - <Shaan Kruger - Last Filed: 05/04/17 09:26> Date of Encounter: 05/04/17 Objective PUL Vital signs: Last Vital Signs Temp 97.9 F 05/04/17 06:58 Pulse 74 05/04/17 09:00 Resp 16 05/04/17 09:00 BP 122/69 05/04/17 09:00 Pulse Ox 97 05/04/17 09:00 Results - Laboratory Findings CBC and BMP: 05/04/17 03:42 05/04/17 03:42 Abnormal lab findings: Abnormal lab results RBC 4.16 M/mcL (4.19-5.50) L 05/04/17 03:42 Hgb 12.7 g/dL (12.9-16.9) L D 05/04/17 03:42 Hct 37.2 % (37.5-50.1) L 05/04/17 03:42 RDW 14.9 % (11.5-14.5) H 05/04/17 03:42 VBG pH 7.29 pH Units (7.32-7.42) L 05/04/17 03:42 VBG pCO2 54 mmHg (41-51) H 05/04/17 03:42 VBG pO2 68 mmHg (25-40) H 05/04/17 03:42 Glucose 150 mg/dL (70-99) H 05/04/17 03:42 POC Glucose 179 (58-89) H 05/04/17 06:57 Hemoglobin A1c 9.0 % (-5.6) H 05/04/17 03:42 - Clinical Findings Intake & Output: Intake & Output 05/03/17 05/04/17 05/04/17 23:59 07:59 15:59 Intake Total 4214.5 / 4214.5 830.5 / 830.5 Output Total 700 / 700 500 / 500 Balance 3514.5 / 3514.5 330.5 / 330.5 Weight 108.862 kg
[2017-05-04] MEDS ORDERED: FLUoxetine 20 MG CAPSULE PO SCH (09:00)
[2017-05-04] MEDS ORDERED: Fenofibrate 54 MG TABLET PO SCH (09:00)
[2017-05-04] MEDS ORDERED: lamoTRIgine 100 MG TABLET PO SCH (09:00)
[2017-05-04] MEDS: Nicotine 2 MG GUM BC PRN ×3 (15:03→20:23)
[2017-05-04] MEDS: Famotidine 20 MG TABLET PO SCH (16:29)
[2017-05-04] MEDS: Insulin DETEMIR 100 UNIT/ML X5UNITS SQ SCH (21:34)
[2017-05-05] MEDS: Insulin LISPRO 300 UNITS/3 ML VIAL SQ SCH ×5 (00:22→16:31)
[2017-05-05] MEDS: *HR* Heparin 5,000 UNIT/ML VIAL SQ SCH ×2 (05:27→17:58)
[2017-05-05] MEDS: Nicotine 2 MG GUM BC PRN ×4 (05:28→16:32)
[2017-05-05] MEDS: Fenofibrate 54 MG TABLET PO SCH (08:35)
[2017-05-05] MEDS: clonazePAM 1 MG TABLET PO PRN (08:37)
[2017-05-05] MEDS: FLUoxetine 20 MG CAPSULE PO SCH (08:37)
[2017-05-05] MEDS: Famotidine 20 MG TABLET PO SCH ×2 (08:37→16:33)
[2017-05-05] MEDS: lamoTRIgine 100 MG TABLET PO SCH (08:38)
[2017-05-05] MEDS: Insulin DETEMIR 100 UNIT/ML X5UNITS SQ SCH (08:49)
[2017-05-05 15:51] VITALS: BP 101/64
--- NOTE | 2017-05-05 16:05 | Discharge Summary ---
Date of Encounter: 05/05/17 Time of Encounter: 16:03 - Discharge Diagnosis (1) DKA (diabetic ketoacidoses) Priority: Primary Status: Acute Qualifiers: Diabetes mellitus type: other specified (including JADON) Diabetes mellitus complication detail: without coma Qualified Code(s): E13.10 - Other specified diabetes mellitus with ketoacidosis without coma (2) Suicidal ideation Priority: Secondary Status: Acute (3) Major depression, recurrent Priority: Secondary Status: Acute Qualifiers: Active/Remission status: currently active Major depression episode severity : severe Psychotic features: with psychotic features Qualified Code(s): F33.3 - Major depressive disorder, recurrent, severe with psychotic symptoms - Discharge Medications Home Medications: Atorvastatin [Lipitor] 40 mg PO HS 12/13/16 [History] Canagliflozin [Invokana] 100 mg PO DAILY 12/13/16 [History] FLUoxetine HCl [Prozac] 40 mg PO DAILY 12/13/16 [History] Famotidine [Heartburn Prevention] 20 mg PO BID 12/13/16 [History] Fenofibrate Nanocrystallized [Tricor] 145 mg PO DAILY 12/13/16 [History] Gabapentin [Neurontin] 300 mg PO BID 12/13/16 [History] Insulin Regular U-500 [HumuLIN R U-500] 0 unit SQ AD 12/13/16 [History] Lisinopril [Zestril] 10 mg PO DAILY 12/13/16 [History] Meloxicam 15 mg PO DAILY 12/13/16 [History] Metoprolol [Lopressor] 25 mg PO BID 12/13/16 [History] Trazodone HCl 300 mg PO HS PRN 12/13/16 [History] Trihexyphenidyl [Artane] 2 mg PO HS 12/13/16 [History] metFORMIN [Glucophage] 1,000 mg PO BIDWM 12/13/16 [History] Quetiapine Fumarate [Quetiapine Fumarate ER] 800 mg PO HS 05/03/17 [History] clonazePAM [Klonopin] 1 mg PO BID PRN 05/03/17 [History] lamoTRIgine [Lamictal] 150 mg PO DAILY 05/03/17 [History] Allergies/Adverse Reactions: Allergies latex Allergy (Verified 12/14/16 10:06) Rash Penicillins [PCN] Allergy (Verified 12/14/16 10:06) Rash Date of admission: 05/03/17 15:13 Primary care physician: PCP NO Consults: 05/04/17 14:12 Consult to Hospitalist [CONS] Routine Consulting Provider: Hospitalist Ruba Reason for Consult: Mangement of DM, recent DKA Call Completed: Yes 05/05/17 07:53 Consult to Psychiatry [CONS] Routine Consulting Provider: Zak Horn Reason for Consult: Suicidal ideation Call Completed: Yes Discharging clinician: Robert De La O Anticipated date of discharge: 05/05/17 - Patient Status Disposition: Transfer Psychiatric Hosp Condition: Good Functional capacity at discharge: independent ambulation Overall status at discharge: patient is progressing back to baseline - Discharge Instructions Instructions: Diabetes Mellitus Type 2 in Adults (DC), Chronic Hypertension (DC ) Follow Up With: Michael Muñoz MD [Non-Partnered Physician] - - Diet and Activity Activity: increase activity as tolerated Diet: diabetic diet, low fat, low cholesterol, low salt diet Hospital course: Mr. Chow is a 42 year old male patient with a history of diabetes mellitus, hypertension, depression who was admitted to ICU with diabetic ketoacidosis. Patient had been to [facility] for the same issue the day prior. However he left A and reportedly had a psychotic breakdown and reported that he had suicidal and homicidal ideation during his initial evaluation here. He was still very agitated and apparently had not slept or eaten for the previous 5 days. He denied any specific plan done. He was treated for DKA with IV insulin per the DKA protocol and his diabetic ketoacidosis was corrected yesterday. He was then transferred out of ICU. Presently he is medically stable for discharge. He was evaluated by psychiatry and recommended inpatient psychiatric hospitalization. Patient will be transferred to adult psychiatric unit at discharge. - Time Spent with Patient Total time spent providing and/or coordinating discharge services: Less than 30 minutes (25 min) - Constitutional Vitals: Temp Pulse Resp BP Pulse Ox 97.9 F 83 16 101/64 94 05/05/17 15:50 05/05/17 15:50 05/05/17 15:50 05/05/17 15:50 05/05/17 15:50 General appearance: Present: cooperative, A&O X 3, no acute distress, answers questions appropriately - Respiratory Respiratory exam: Present: CTAB. Absent: accessory muscle use, rales, rhonchi, wheezes - Cardiovascular Cardiovascular exam: Present: RRR, +S1, +S2. Absent: diastolic murmur, gallop, rubs, systolic murmur - GI/Abdominal GI/Abdominal exam: Present: normal bowel sounds, soft, no peritoneal signs. Absent: distended, tenderness - Extremities Exam Extremities exam: Present: warm, radial pulses palpable and symetrical. Absent : calf tenderness, cyanotic, pedal edema - Neurological Exam Neurological exam: Present: alert, oriented X3, no focal deficits. Absent: facial droop, speech deficit - Psychiatric Psychiatric exam: Present: depressed, flat affect - Skin Skin exam: Present: dry, intact
--- NOTE | 2017-05-05 17:02 | Consult Note ---
Date of Encounter: 05/05/17 Time of Encounter: 16:00 Assessment & Recommendation (1) Bipolar 1 disorder Current visit: Yes Status: Acute History of Present Illness Requesting Physician: Robert De La O MD Reason for consult: Patient reports suicidal ideation History of present illness: Mr. Chow is a 42 year old male Mr. Chow is a 42 year old male patient with a history of diabetes mellitus, hypertension, depression who was admitted to ICU with diabetic ketoacidosis. Psychiatry consulted to assess for suicidal ideation. Patient seen at bedside this afternoon in no apparent distress. He was calm and cooperative. He reported a h/o of Bipolar disorder, multiple inpatient hospitalizations, denied h/o illicit drug use, last seen by his psychiatrist months ago. Patient reports exacerbation of his symptoms the past couple of weeks. He is unable to identify any recent significant stressors. He reported intense thoughts to hurt himself days before his hospitalization and does not feel safe to be discharge home. He is at present endorsing feeling depressive with SI with no plan or intent. On review of symptoms, he denied other mood or psychotic symptoms. Recommendation; Transfer to Psych inpatient after patient is medically cleared. Continue One to One Cont with current meds CC: Robert De La O MD Past Med Surg Social Fam HX - Past Medical History Medical history: diabetes, hypertension, seizures - Past Surgical History Surgical History: colostomy, orthopedic, other, other - Social History Smoking Status: Never smoker Smokeless Tobacco Status: Yes Alcohol use: none Drug use: none Medications & Allergies Atorvastatin [Lipitor] 40 mg PO HS 12/13/16 [History] Canagliflozin [Invokana] 100 mg PO DAILY 12/13/16 [History] FLUoxetine HCl [Prozac] 40 mg PO DAILY 12/13/16 [History] Famotidine [Heartburn Prevention] 20 mg PO BID 12/13/16 [History] Fenofibrate Nanocrystallized [Tricor] 145 mg PO DAILY 12/13/16 [History] Gabapentin [Neurontin] 300 mg PO BID 12/13/16 [History] Insulin Regular U-500 [HumuLIN R U-500] 0 unit SQ AD 12/13/16 [History] Lisinopril [Zestril] 10 mg PO DAILY 12/13/16 [History] Meloxicam 15 mg PO DAILY 12/13/16 [History] Metoprolol [Lopressor] 25 mg PO BID 12/13/16 [History] Trazodone HCl 300 mg PO HS PRN 12/13/16 [History] Trihexyphenidyl [Artane] 2 mg PO HS 12/13/16 [History] metFORMIN [Glucophage] 1,000 mg PO BIDWM 12/13/16 [History] Quetiapine Fumarate [Quetiapine Fumarate ER] 800 mg PO HS 05/03/17 [History] clonazePAM [Klonopin] 1 mg PO BID PRN 05/03/17 [History] lamoTRIgine [Lamictal] 150 mg PO DAILY 05/03/17 [History] Allergies latex Allergy (Verified 12/14/16 10:06) Rash Penicillins [PCN] Allergy (Verified 12/14/16 10:06) Rash Review of Systems Constitutional: Denies: fever, chills, weakness, weight change Eyes: Denies: eye pain, vision change Ears, Nose, Throat: Denies: ear pain, throat pain, dental pain, hearing loss, congestion Cardiovascular: Denies: chest pain, palpitations, dyspnea on exertion Respiratory: Denies: cough, dyspnea, wheezes Gastrointestinal: Denies: abdominal pain, nausea, vomiting, diarrhea, constipation Genitourinary male: Denies: urgency, dysuria, frequency, genital lesions Genitourinary female: Denies: urgency, dysuria, frequency, abnormal menses, dyspareunia Musculoskeletal: Denies: joint swelling, joint pain Integumentary: Denies: rash, lesions, pruritus Neurological: Denies: headache, weakness, numbness, memory loss Endocrine: Denies: fatigue, heat or cold intolerance Hematologic/Lymphatic: Denies: easy bruising, lymphadenopathy Allergic/Immunologic: Denies: urticaria, itchy eyes Mental Status Exam Patient orientation: Yes Person, Yes Time, Yes Place Level of alertness: Alert Patient appearance: Appropriate, Well Groomed Behavior: calm, cooperative Psychomotor activity: Normal Eye contact: Maintains Eye Contact Mood description: Depressed Affect description: congruent with mood, full range Speech pattern: Normal rate, Normal rhythm, Normal tone Speech volume: Normal Thought process: Linear, Goal Oriented Thought content: Yes Suicidal ideation, No Homicidal ideation, No Overt delusions Perceptual disturbances: No Auditory hallucinations, No Visual hallucinations Attention span: Capable of Focused Attention Memory description: Grossly Intact Patient reliability: Reliable Historian Intelligence estimate: Average Judgment: Limited Insight: Partial Results - Vital Signs Vital signs: Temp Pulse Resp BP Pulse Ox 97.9 F 83 16 101/64 94 05/05/17 15:50 05/05/17 15:50 05/05/17 15:50 05/05/17 15:50 05/05/17 15:50 - Labs Labs: Laboratory Last Values WBC 5.6 K/mcL (4.3-11.1) 05/04/17 03:42 RBC 4.16 M/mcL (4.19-5.50) L 05/04/17 03:42 Hgb 12.7 g/dL (12.9-16.9) L D 05/04/17 03:42 Hct 37.2 % (37.5-50.1) L 05/04/17 03:42 MCV 89.4 fL (83.0-100.0) 05/04/17 03:42 MCH 30.5 pg (28.0-33.3) 05/04/17 03:42 MCHC 34.1 g/dL (31.6-35.5) 05/04/17 03:42 RDW 14.9 % (11.5-14.5) H 05/04/17 03:42 Plt Count 183 K/mcL (140-400) 05/04/17 03:42 MPV 9.8 fL (9.4-12.4) 05/04/17 03:42 Immature Gran % 1.4 % (0-4) 05/04/17 03:42 Seg Neutrophils % 36.1 % 05/04/17 03:42 Lymphocytes % 47.7 % 05/04/17 03:42 Monocytes % 11.9 % 05/04/17 03:42 Eosinophils % 2.0 % 05/04/17 03:42 Basophils % 0.9 % 05/04/17 03:42 Neutrophils # 2.0 K/mcL (1.6-8.9) 05/04/17 03:42 Lymphocytes # 2.7 K/mcL (0.6-4.6) 05/04/17 03:42 Monocytes # 0.7 K/mcL (0.0-1.3) 05/04/17 03:42 Eosinophils # 0.1 K/mcL (0.0-0.6) 05/04/17 03:42 Basophils # 0.1 K/mcL (0.0-0.2) 05/04/17 03:42 VBG pH 7.29 pH Units (7.32-7.42) L 05/04/17 03:42 VBG pCO2 54 mmHg (41-51) H 05/04/17 03:42 VBG pO2 68 mmHg (25-40) H 05/04/17 03:42 VBG HCO3 26.0 mEq/L (21-27) 05/04/17 03:42 Sodium 137 mEq/L (136-145) 05/04/17 03:42 Potassium 3.6 mEq/L (3.5-4.5) 05/04/17 03:42 Chloride 106 mEq/L (98-109) 05/04/17 03:42 Carbon Dioxide 26 mEq/L (19-29) 05/04/17 03:42 BUN 18 mg/dL (8-26) 05/04/17 03:42 Creatinine 1.05 mg/dL (0.72-1.25) 05/04/17 03:42 Est GFR ( Amer) > 60 (> 60) 05/04/17 03:42 Est GFR (Non-Af Amer) > 60 (> 60) 05/04/17 03:42 BUN/Creatinine Ratio 17 (6-26) 05/04/17 03:42 Glucose 150 mg/dL (70-99) H 05/04/17 03:42 POC Glucose 189 (58-89) H 05/05/17 15:45 Est Mean Plasma Glucose 212 mg/dl 05/04/17 03:42 Hemoglobin A1c 9.0 % (-5.6) H 05/04/17 03:42 Calculated Osmolality 289 (280-300) 05/04/17 03:42 Calcium 8.7 mg/dL (8.6-10.8) 05/04/17 03:42 Consult Discharge Plan - Plan Instructions: Diabetes Mellitus Type 2 in Adults (DC), Chronic Hypertension (DC ) Referrals: Michael Muñoz MD [Non-Partnered Physician] -
== END 2017-05-05 18:56 | DRG 638 ==
LOC: ICNU 15:13 → SUATTDRO 15:13 → 3ANU 05-04 15:56
PROVIDERS: ADMIT Specialist; ATTEND Internal Medicine

== ENCOUNTER 2017-05-05 19:09 | Inpatient (IN) ==
[2017-05-05] MEDS ORDERED: Mag Hydrox/Al Hydrox/Simeth 30 ML UDC PO PRN (21:06)
[2017-05-05] MEDS ORDERED: MOM Conc 10 ML UD.LIQ PO PRN (21:06)
[2017-05-05] MEDS ORDERED: *HR* LORazepam 2 MG/ML VIAL IM PRN (21:06)
[2017-05-05] MEDS ORDERED: Haloperidol Lactate 5 MG/ML VIAL IM PRN (21:06)
[2017-05-05] MEDS ORDERED: *HR* LORazepam 1 MG TABLET PO PRN (21:06)
[2017-05-05] MEDS ORDERED: hydrOXYzine pamoate 25 MG CAPSULE PO PRN (21:06)
[2017-05-05] MEDS ORDERED: Acetaminophen 325 MG TABLET PO PRN (21:06)
[2017-05-05] MEDS ORDERED: *HR* Dextrose 50 % in Water (Syg) 50 ML SYRINGE IVP PRN (21:34)
[2017-05-05] MEDS ORDERED: Dextrose Gel 15 GM PO PRN ×2 (21:34)
[2017-05-05] MEDS ORDERED: D5% in Water 1,000 ML IVC PRN (21:34)
[2017-05-05] MEDS: Gabapentin 300 MG CAPSULE PO SCH (23:06)
[2017-05-05] MEDS: Nicotine 2 MG GUM BC PRN (23:07)
[2017-05-05] MEDS: Insulin DETEMIR 100 UNIT/ML X5UNITS SQ SCH (23:09)
[2017-05-05] MEDS: Insulin LISPRO 300 UNITS/3 ML VIAL SQ SCH (23:10)
[2017-05-06] MEDS: Insulin LISPRO 300 UNITS/3 ML VIAL SQ SCH ×4 (08:31→21:58)
[2017-05-06] MEDS: Insulin DETEMIR 100 UNIT/ML X5UNITS SQ SCH ×2 (08:33→21:38)
[2017-05-06] MEDS: *HR* Metformin 500 MG TABLET PO SCH ×2 (08:33→16:23)
[2017-05-06] MEDS: Fenofibrate 54 MG TABLET PO SCH (08:55)
[2017-05-06] MEDS: lamoTRIgine 100 MG TABLET PO SCH (08:56)
[2017-05-06] MEDS: clonazePAM 1 MG TABLET PO PRN ×2 (08:56→21:35)
[2017-05-06] MEDS: Gabapentin 300 MG CAPSULE PO SCH ×3 (08:58→21:36)
[2017-05-06] MEDS: Nicotine 2 MG GUM BC PRN ×6 (08:58→21:35)
[2017-05-06] MEDS: Famotidine 20 MG TABLET PO SCH ×2 (08:58→21:35)
[2017-05-06] MEDS ORDERED: FLUoxetine 20 MG CAPSULE PO SCH (09:00)
[2017-05-06] MEDS: (Canagliflozin [Invokana] 100 MG) PO SCH (09:04)
--- NOTE | 2017-05-06 13:28 | Psychiatry History & Physical ---
Date of Encounter: 05/06/17 Time of Encounter: 15:00 History of Present Illness Medicare Admission Attestation: For traditional Medicare patients the provided hospital inpatient services are reasonable and necessary and in the case of services not specified as inpatient -only under 42 CFR 419.22 (n), that they are appropriately provided as inpatient services in accordance 42 CFR 412.3. For Critical Access Hospital the patient may reasonably be expected to be discharged or transferred to a hospital within 96 hours after admission to the Critical Access Hospital. History of Present Illness: Mr. Chow is a 42 year old male, , patient with a history of uncontrolled diabetes mellitus, hypertension, Bipolar disorder, multiple inpatient hospitalizations, h/o illicit drug use,who was admitted to ICU with diabetic ketoacidosis. Psychiatry consulted to assess for suicidal ideation during admission and was subsequently transferred to the unit after medical clearance. Patient reported he was last seen by his psychiatrist months ago. He reported exacerbation of his symptoms the past couple of weeks due to ongoing mutiple stressors identified as living alone. He mentioned he has lived most part of his life in group and nursing homes but moved in a girl a few months ago. He got his own place after they broke up and is having issues living by himself. He reported not sleeping for 4day and racing thooghts prior to his admission.. He reported intense thoughts to hurt himself days before his hospitalization and does not feel safe to be discharge home. Patient continue to endorse feeling depressed with SI with no plan or intent. He also reported increased anxiety on current regimen. On review of symptoms, he denied other mood or psychotic symptoms. There risk of Seroquel with DM explained to patient but not willing to consider switching explaining its the only medications that relaxes him at night. Past Med Surg Social Fam HX - Past Medical History Medical history: diabetes, hypertension, seizures - Past Psychiatric History Psychiatric history: Reports: bipolar, previous psychiatric hospitalization - Past Surgical History Surgical History: colostomy, orthopedic, other, other - Social History Smoking Status: Never smoker Smokeless Tobacco Status: Yes Alcohol use: none Drug use: none - Family History Mother Hx Family Cancer: Yes (lung) Medications & Allergies Atorvastatin [Lipitor] 40 mg PO HS 12/13/16 [History] Canagliflozin [Invokana] 100 mg PO DAILY 12/13/16 [History] FLUoxetine HCl [Prozac] 40 mg PO DAILY 12/13/16 [History] Famotidine [Heartburn Prevention] 20 mg PO BID 12/13/16 [History] Fenofibrate Nanocrystallized [Tricor] 145 mg PO DAILY 12/13/16 [History] Gabapentin [Neurontin] 300 mg PO BID 12/13/16 [History] Insulin Regular U-500 [HumuLIN R U-500] 0 unit SQ BID 12/13/16 [History] Lisinopril [Zestril] 10 mg PO DAILY 12/13/16 [History] Meloxicam 15 mg PO DAILY 12/13/16 [History] Metoprolol [Lopressor] 25 mg PO BID 12/13/16 [History] Trazodone HCl 300 mg PO HS PRN 12/13/16 [History] Trihexyphenidyl [Artane] 2 mg PO HS 12/13/16 [History] metFORMIN [Glucophage] 1,000 mg PO BIDWM 12/13/16 [History] Quetiapine Fumarate [Quetiapine Fumarate ER] 800 mg PO HS 05/03/17 [History] clonazePAM [Klonopin] 1 mg PO BID PRN 05/03/17 [History] lamoTRIgine [Lamictal] 150 mg PO DAILY 05/03/17 [History] Allergies latex Allergy (Verified 12/14/16 10:06) Rash Penicillins [PCN] Allergy (Verified 12/14/16 10:06) Rash Review of Systems Constitutional: Denies: fever, chills, weakness, weight change Eyes: Denies: eye pain, vision change Ears, Nose, Throat: Denies: ear pain, throat pain, dental pain, hearing loss, congestion Cardiovascular: Denies: chest pain, palpitations, dyspnea on exertion Respiratory: Denies: cough, dyspnea, wheezes Gastrointestinal: Denies: abdominal pain, nausea, vomiting, diarrhea, constipation Genitourinary male: Denies: urgency, dysuria, frequency, genital lesions Genitourinary female: Denies: urgency, dysuria, frequency, abnormal menses, dyspareunia Musculoskeletal: Denies: joint swelling, joint pain Integumentary: Denies: rash, lesions, pruritus Neurological: Denies: headache, weakness, numbness, memory loss Endocrine: Denies: fatigue, heat or cold intolerance Hematologic/Lymphatic: Denies: easy bruising, lymphadenopathy Allergic/Immunologic: Denies: urticaria, itchy eyes Mental Status Exam Patient orientation: Yes Person, Yes Time, Yes Place Level of alertness: Alert Patient appearance: Appropriate, Well Groomed Behavior: calm, cooperative Psychomotor activity: Normal Eye contact: Maintains Eye Contact Mood description: Depressed, Anxious Affect description: congruent with mood, full range Speech pattern: Normal rate, Normal rhythm, Normal tone Speech volume: Normal Thought process: Linear, Goal Oriented Thought content: Yes Suicidal ideation, No Homicidal ideation, No Overt delusions Perceptual disturbances: No Auditory hallucinations, No Visual hallucinations Attention span: Capable of Focused Attention Memory description: Grossly Intact Patient reliability: Reliable Historian Intelligence estimate: Average Judgment: Limited Insight: Partial Results - Vital Signs Vital signs: Temp Pulse Resp BP 97 F L 77 16 121/81 05/06/17 09:00 05/06/17 09:00 05/06/17 09:00 05/06/17 09:00 - Labs Labs: Laboratory Last Values POC Glucose 239 (58-89) H 05/06/17 11:56 Assessment and Plan (1) Major depression, recurrent Current visit: No Status: Acute Qualifiers: Active/Remission status: currently active Major depression episode severity : severe Psychotic features: with psychotic features Qualified Code(s): F33.3 - Major depressive disorder, recurrent, severe with psychotic symptoms (2) Anxiety Current visit: Yes Status: Acute (3) Bipolar 1 disorder Current visit: No Status: Chronic
--- NOTE | 2017-05-06 14:04 | Event Note ---
Date of Encounter: 05/05/17 Time of Encounter: 16:00 Addendum to Consultation: Diagnosis: [place] depressive Disorder recurrent severe without psychotic features. Suicidal ideation
[2017-05-07] MEDS: Nicotine 2 MG GUM BC PRN ×6 (06:46→21:13)
[2017-05-07] MEDS: Insulin LISPRO 300 UNITS/3 ML VIAL SQ SCH ×4 (08:28→21:22)
[2017-05-07] MEDS: *HR* Metformin 500 MG TABLET PO SCH ×2 (09:01→16:45)
[2017-05-07] MEDS: lamoTRIgine 100 MG TABLET PO SCH (09:02)
[2017-05-07] MEDS: Gabapentin 300 MG CAPSULE PO SCH ×3 (09:02→21:12)
[2017-05-07] MEDS: (Canagliflozin [Invokana] 100 MG) PO SCH (09:03)
[2017-05-07] MEDS: Fenofibrate 54 MG TABLET PO SCH (09:03)
[2017-05-07] MEDS: FLUoxetine 20 MG CAPSULE PO SCH (09:03)
[2017-05-07] MEDS: Famotidine 20 MG TABLET PO SCH ×2 (09:03→21:12)
[2017-05-07] MEDS: clonazePAM 1 MG TABLET PO PRN ×2 (09:06→21:13)
[2017-05-07] MEDS: Insulin DETEMIR 100 UNIT/ML X5UNITS SQ SCH ×2 (09:10→21:20)
--- NOTE | 2017-05-07 11:50 | Psychiatry Progress Note ---
Date of Encounter: 05/07/17 Time of Encounter: 11:07 Subjective Interval history: Patient seen and interviewed. He reported on not feeling well. Endorsing hopelessness helplessness feelings nervousness and anxiety and suicidal thoughts and ideations. Patient is reporting of feeling fear and apprehension thinking about leaving the hospital. He is unable to verbalize a safety plan. He did feel a little relief after finding out that his son is allowing him to stay with him. I encouraged the patient to attend groups to participate in activities and work on a safety plan. Review of Systems Psychiatric: Reports: depression, anxiety, suicidal ideation, hopelessness Objective: Exam Patient orientation: Yes Person, Yes Time, Yes Place Level of alertness: Alert Patient appearance: Disheveled, Obese Behavior: anxious Psychomotor activity: Slowed Eye contact: Maintains Eye Contact Mood description: Depressed, Anxious Affect description: blunted, dysphoric Speech pattern: Normal rate, Normal rhythm, Normal tone Speech volume: Soft/Quiet Thought process: Linear, Goal Oriented Thought content: Yes Suicidal ideation Perceptual disturbances: No Auditory hallucinations, No Visual hallucinations Judgment: Limited Insight: Minimal Results - Vital Signs Vital Signs: Temp Pulse Resp BP 96.8 F L 71 16 108/72 05/07/17 09:00 05/07/17 09:00 05/07/17 09:00 05/07/17 09:00 - Labs Labs: Laboratory Results - last 24 hr 05/06/17 05/06/17 05/06/17 11:56 16:29 21:34 POC Glucose 239 H 146 H 201 H 05/07/17 05/07/17 08:23 11:36 POC Glucose 218 H 220 H Assessment and Plan (1) Major depression, recurrent Current visit: No Status: Acute Plan: Continue hospitalization, Close observation, Suicide Precautions per unit protocol, Encourage participation in unit milieu, Group Therapy, Monitor sleep, Monitor appetite Additional Plan: We will continue current medications. We will add Vistaril 50 3 times a day when necessary for anxiety and nervousness Risks, benefits, side effects, alternatives discussed w/pt: No Patient agreeable to treatment: No Qualifiers: Active/Remission status: currently active Major depression episode severity : severe Psychotic features: with psychotic features Qualified Code(s): F33.3 - Major depressive disorder, recurrent, severe with psychotic symptoms Consult Discharge Plan - Plan Referrals: [facility] [Outside] - 05/11/17 10:00 am (The above appointment is with Osiris Ramos, mental health rifle case repairer.) [facility] [place] [Outside] - 07/04/17 10:30 am (The above appointment is with Carito Maldonado CNP, for outpatient psychiatric assessment and medication management.) [facility] [place] [Outside] - 05/16/17 10:30 am (The above appointment is with Nusrat Wells, for primary health care and medication management services.)
[2017-05-07] MEDS: hydrOXYzine pamoate 25 MG CAPSULE PO PRN (13:33)
[2017-05-08] MEDS: Nicotine 2 MG GUM BC PRN ×5 (06:21→20:38)
[2017-05-08] MEDS: hydrOXYzine pamoate 25 MG CAPSULE PO PRN ×3 (06:50→17:17)
[2017-05-08] MEDS: Insulin LISPRO 300 UNITS/3 ML VIAL SQ SCH ×4 (07:55→20:38)
[2017-05-08] MEDS: lamoTRIgine 100 MG TABLET PO SCH (08:14)
[2017-05-08] MEDS: *HR* Metformin 500 MG TABLET PO SCH ×2 (08:14→16:21)
[2017-05-08] MEDS: Insulin DETEMIR 100 UNIT/ML X5UNITS SQ SCH ×2 (08:15→20:39)
[2017-05-08] MEDS: Famotidine 20 MG TABLET PO SCH ×2 (08:16→20:37)
[2017-05-08] MEDS: (Canagliflozin [Invokana] 100 MG) PO SCH (08:16)
[2017-05-08] MEDS: Gabapentin 300 MG CAPSULE PO SCH ×3 (08:16→20:36)
[2017-05-08] MEDS: Fenofibrate 54 MG TABLET PO SCH (08:17)
[2017-05-08] MEDS: FLUoxetine 20 MG CAPSULE PO SCH (08:17)
[2017-05-08] MEDS: clonazePAM 1 MG TABLET PO PRN ×2 (08:58→20:37)
--- NOTE | 2017-05-08 12:33 | Psychiatry Progress Note ---
Date of Encounter: 05/08/17 Time of Encounter: 12:15 Subjective Interval history: Patient seen and interviewed. Noticing some improvement in anxiety with the addition of Vistaril. Is still endorsing some hopeless feelings and suicidal ideations. Reporting that the suicidal thoughts and ideations are getting less intense and less frequent. Active on the unit and is participating in groups. Sleep and appetite is improved. Patient did appear flat and dysphoric. Encouraged to start working on a safety plan Review of Systems Psychiatric: Reports: depression, anxiety, suicidal ideation, hopelessness Objective: Exam Patient orientation: Yes Person, Yes Time, Yes Place Level of alertness: Alert Patient appearance: Disheveled, Obese Behavior: anxious Psychomotor activity: Slowed Eye contact: Maintains Eye Contact Mood description: Anxious Affect description: congruent with mood Speech pattern: Normal rate, Normal rhythm, Normal tone Speech volume: Soft/Quiet Thought process: Linear, Goal Oriented Thought content: Yes Suicidal ideation Perceptual disturbances: No Auditory hallucinations, No Visual hallucinations Judgment: Limited Insight: Partial Results - Vital Signs Vital Signs: Temp Pulse Resp BP 96.7 F L 66 18 115/74 05/08/17 09:00 05/08/17 09:00 05/08/17 09:00 05/08/17 09:00 - Labs Labs: Laboratory Results - last 24 hr 05/07/17 05/07/17 05/08/17 16:27 20:49 07:50 POC Glucose 212 H 206 H 300 H 05/08/17 05/08/17 07:52 11:41 POC Glucose 256 H 252 H Assessment and Plan (1) Major depression, recurrent Current visit: No Status: Acute Plan: Continue hospitalization, Close observation, Suicide Precautions per unit protocol, Encourage participation in unit milieu, Group Therapy, Monitor sleep, Monitor appetite Risks, benefits, side effects, alternatives discussed w/pt: Yes Patient agreeable to treatment: Yes Qualifiers: Active/Remission status: currently active Major depression episode severity : severe Psychotic features: with psychotic features Qualified Code(s): F33.3 - Major depressive disorder, recurrent, severe with psychotic symptoms Consult Discharge Plan - Plan Referrals: [facility] [Outside] - 05/11/17 10:00 am (The above appointment is with Osiris Ramos, mental health family caseworker.) [facility] [Outside] - 07/04/17 10:30 am (The above appointment is with Carito Maldonado CNP, for outpatient psychiatric assessment and medication management.) [facility] [place] [Outside] - 05/16/17 10:30 am (The above appointment is with Nusrat Wells, for primary health care and medication management services.)
[2017-05-08] MEDS: traZODone 50 MG TABLET PO PRN (20:34)
[2017-05-09] MEDS: Nicotine 2 MG GUM BC PRN ×6 (05:33→20:20)
[2017-05-09] MEDS: Insulin LISPRO 300 UNITS/3 ML VIAL SQ SCH ×4 (08:02→20:36)
[2017-05-09] MEDS: *HR* Metformin 500 MG TABLET PO SCH ×2 (08:03→16:39)
[2017-05-09] MEDS: hydrOXYzine pamoate 25 MG CAPSULE PO PRN ×2 (08:03→16:39)
[2017-05-09] MEDS: (Canagliflozin [Invokana] 100 MG) PO SCH (08:37)
[2017-05-09] MEDS: lamoTRIgine 100 MG TABLET PO SCH (08:41)
[2017-05-09] MEDS: Insulin DETEMIR 100 UNIT/ML X5UNITS SQ SCH ×2 (08:42→20:36)
[2017-05-09] MEDS: Gabapentin 300 MG CAPSULE PO SCH ×3 (08:43→20:37)
[2017-05-09] MEDS: Famotidine 20 MG TABLET PO SCH ×2 (08:43→20:37)
[2017-05-09] MEDS: Fenofibrate 54 MG TABLET PO SCH (08:44)
[2017-05-09] MEDS: FLUoxetine 20 MG CAPSULE PO SCH (08:44)
[2017-05-09] MEDS: clonazePAM 1 MG TABLET PO PRN ×2 (12:41→20:20)
--- NOTE | 2017-05-09 16:05 | Psychiatry Progress Note ---
Date of Encounter: 05/09/17 Time of Encounter: 16:00 Subjective Interval history: patient seen today , case discussed with team , chart reviewed, he is feeling little better and feels anxiety is not that high He is still depressed, hopeless but fleeting suicidal thoughts.also racing thoughts are still there, minimal improvement. denies aud./visual hallucinations. pt decompensated as non compliant , increase depression and not taking care of himself and had diabetic ketoacidosis and was in ICU. He states he gets like this when he is alone and now planning to live with his son. for 10 years patient has been in and out of nursing and group homes. denies side effects from medications. Review of Systems Psychiatric: Reports: depression, anxiety, suicidal ideation, hopelessness Objective: Exam Level of alertness: Alert Patient appearance: Appropriate Behavior: cooperative, anxious Psychomotor activity: Increased Eye contact: Maintains Eye Contact Mood description: Depressed Affect description: congruent with mood Speech pattern: Slowed Thought process: Circumstantial Thought content: Yes Intact Results - Vital Signs Vital Signs: Temp Pulse Resp BP 96.7 F L 68 18 130/69 05/09/17 08:53 05/09/17 08:53 05/09/17 08:53 05/09/17 08:53 - Labs Labs: Laboratory Results - last 24 hr 05/08/17 05/08/17 05/09/17 16:15 20:18 07:54 POC Glucose 197 H 185 H 268 H 05/09/17 11:31 POC Glucose 257 H Assessment and Plan (1) Major depression, recurrent Current visit: No Status: Acute Risks, benefits, side effects, alternatives discussed w/pt: Yes Patient agreeable to treatment: Yes Qualifiers: Active/Remission status: currently active Major depression episode severity : severe Psychotic features: with psychotic features Qualified Code(s): F33.3 - Major depressive disorder, recurrent, severe with psychotic symptoms Consult Discharge Plan - Plan Referrals: [facility] - 05/11/17 10:00 am (The above appointment is with Osiirs Ramos, mental health case management rn.) [facility] [Outside] - 07/04/17 10:30 am (The above appointment is with Carito Maldonado CNP, for outpatient psychiatric assessment and medication management.) [facility] [Outside] - 05/16/17 10:30 am (The above appointment is with Nusrat Wells, for primary health care and medication management services.)
[2017-05-09] MEDS: traZODone 50 MG TABLET PO PRN (20:20)
[2017-05-10] MEDS: Nicotine 2 MG GUM BC PRN ×3 (06:23→12:41)
[2017-05-10] MEDS: Insulin LISPRO 300 UNITS/3 ML VIAL SQ SCH ×2 (08:14→11:39)
[2017-05-10] MEDS: hydrOXYzine pamoate 25 MG CAPSULE PO PRN (09:05)
[2017-05-10] MEDS: FLUoxetine 20 MG CAPSULE PO SCH (09:05)
[2017-05-10] MEDS: lamoTRIgine 100 MG TABLET PO SCH (09:06)
[2017-05-10] MEDS: Famotidine 20 MG TABLET PO SCH (09:06)
[2017-05-10] MEDS: *HR* Metformin 500 MG TABLET PO SCH (09:06)
[2017-05-10] MEDS: Gabapentin 300 MG CAPSULE PO SCH (09:06)
[2017-05-10] MEDS: Fenofibrate 54 MG TABLET PO SCH (09:07)
[2017-05-10] MEDS: Insulin DETEMIR 100 UNIT/ML X5UNITS SQ SCH (09:11)
[2017-05-10] MEDS: (Canagliflozin [Invokana] 100 MG) PO SCH (09:14)
[2017-05-10 09:49] VITALS: BP 103/65
--- NOTE | 2017-05-10 12:00 | Psychiatry Progress Note ---
Date of Encounter: 05/10/17 Time of Encounter: 11:58 Subjective Interval history: Patient seen today and case discussed with staff, feels doing better. i am doing fine, i am going to live with my son and will take my medicine and check my sugar regularly. pt at present denies any auditory Hallucinations and no Suicidal ideation/ homocidal ideation at present patient is at baseline and will be discharged today. Review of Systems Psychiatric: Reports: anxiety Objective: Exam Patient orientation: Yes Time, Yes Place Level of alertness: Alert Patient appearance: Appropriate Behavior: calm, cooperative, anxious Psychomotor activity: Normal Eye contact: Maintains Eye Contact Mood description: Euthymic/stable Affect description: constricted Speech pattern: Normal rate Speech volume: Normal Thought process: Intact Thought content: Yes Intact Judgment: Fair Insight: Full Results - Vital Signs Vital Signs: Temp Pulse Resp BP 96.8 F L 63 16 103/65 05/10/17 09:00 05/10/17 09:00 05/10/17 09:00 05/10/17 09:00 - Labs Labs: Laboratory Results - last 24 hr 05/09/17 05/09/17 05/10/17 16:27 20:08 08:11 POC Glucose 173 H 198 H 295 H 05/10/17 11:35 POC Glucose 269 H Assessment and Plan (1) Major depression, recurrent Current visit: No Status: Acute Risks, benefits, side effects, alternatives discussed w/pt: Yes Patient agreeable to treatment: Yes Qualifiers: Active/Remission status: currently active Major depression episode severity : severe Psychotic features: with psychotic features Qualified Code(s): F33.3 - Major depressive disorder, recurrent, severe with psychotic symptoms Consult Discharge Plan - Plan [facility] 10:00 am (The above appointment is with Osiris Ramos, mental health egg caser.) [facility] [Outside] - 07/04/17 10:30 am (The above appointment is with Carito Maldonado CNP, for outpatient psychiatric assessment and medication management.) [facility] [Outside] - 05/16/17 10:30 am (The above appointment is with Nusrat Wells, for primary health care and medication management services.)
--- NOTE | 2017-05-10 12:08 | Discharge Summary ---
Date of Encounter: 05/11/17 Time of Encounter: 11:58 Diagnosis - Discharge Diagnosis (1) Major depression, recurrent Status: Acute Qualifiers: Active/Remission status: currently active Major depression episode severity : severe Psychotic features: with psychotic features Qualified Code(s): F33.3 - Major depressive disorder, recurrent, severe with psychotic symptoms Medications - Discharge Medications Prescriptions: clonazePAM [Klonopin] 1 mg PO BID PRN #14 PRN Reason: Anxiety FLUoxetine HCl [Prozac] 60 mg PO DAILY #30 hydrOXYzine pamoate [HydrOXYzine Pamoate] 50 mg PO TID PRN #20 PRN Reason: Anxiety lamoTRIgine [Lamictal] 150 mg PO DAILY #7 Quetiapine Fumarate [Quetiapine Fumarate ER] 800 mg PO HS #14 Trazodone HCl 300 mg PO HS PRN #7 PRN Reason: Insomnia Trihexyphenidyl [Artane] 2 mg PO HS #7 Atorvastatin [Lipitor] 40 mg PO HS 12/13/16 [History] Canagliflozin [Invokana] 100 mg PO DAILY 12/13/16 [History] Famotidine [Heartburn Prevention] 20 mg PO BID 12/13/16 [History] Fenofibrate Nanocrystallized [Tricor] 145 mg PO DAILY 12/13/16 [History] Gabapentin [Neurontin] 300 mg PO BID 12/13/16 [History] Insulin Regular U-500 [HumuLIN R U-500] 0 unit SQ BID 12/13/16 [History] Lisinopril [Zestril] 10 mg PO DAILY 12/13/16 [History] Meloxicam 15 mg PO DAILY 12/13/16 [History] Metoprolol [Lopressor] 25 mg PO BID 12/13/16 [History] metFORMIN [Glucophage] 1,000 mg PO BIDWM 12/13/16 [History] FLUoxetine HCl [Prozac] 60 mg PO DAILY #30 05/10/17 [Rx] Insulin DETEMIR [Levemir] 15 unit SQ BID 05/10/17 [Rx] Insulin LISPRO [HumaLOG] 0 units SQ HS vial 05/10/17 [Rx] Insulin LISPRO [HumaLOG] 0 units SQ TIDAC vial 05/10/17 [Rx] Quetiapine Fumarate [Quetiapine Fumarate ER] 800 mg PO HS #14 05/10/17 [Rx] Trazodone HCl 300 mg PO HS PRN #7 05/10/17 [Rx] Trihexyphenidyl [Artane] 2 mg PO HS #7 05/10/17 [Rx] clonazePAM [Klonopin] 1 mg PO BID PRN #14 05/10/17 [Rx] hydrOXYzine pamoate [HydrOXYzine Pamoate] 50 mg PO TID PRN #20 05/10/17 [Rx] lamoTRIgine [Lamictal] 150 mg PO DAILY #7 05/10/17 [Rx] Allergies latex Allergy (Verified 12/14/16 10:06) Rash Penicillins [PCN] Allergy (Verified 12/14/16 10:06) Rash Provider Date of admission: 05/05/17 19:09 Primary care physician: PCP NO Discharging clinician: patient re Assessment and Plan - Patient/Caregiver Discharge Instructions Diet: diabetic diet - Follow up Plan [facility] 05/11/17 10:00 am (The above appointment is with Osiris Ramos, mental health case specialist.) [facility] [Outside] - 07/04/17 10:30 am (The above appointment is with Carito Maldonado CNP, for outpatient psychiatric assessment and medication management.) [facility] [place] [Outside] - 05/16/17 10:30 am (The above appointment is with Nusrat Wells, for primary health care and medication management services.) Functional capacity at discharge: independent ambulation Overall status at discharge: patient is back to baseline Disposition: Home, Self-Care Hospital Course Hospital course: Mr. Chow is a 42 year old male was inpatient for depression and during hospital course responded to treatment well and has support , will live with his son and f/u with out patient psychiatrist. Time spent discussing smoking cessation with patient: 3 to 10 minutes Does patient wish to continue nicotine replacement upon disc: No - Time Spent with Patient Total time spent providing and/or coordinating discharge services: Less than 30 minutes Quality - Multiple Antipsychotics Patient discharged on 2 or more antipsychotic medications: No Procedures - Procedures Procedures: Medication Management, Crisis Stabilization, Supportive Therapy, Group Therapy, Psychoeducational Therapy Mental Status Exam - Mental Status Exam Level of alertness: Alert Patient appearance: Appropriate Behavior: cooperative, anxious Psychomotor activity: Normal Eye contact: Maintains Eye Contact Mood description: Euthymic/stable Speech pattern: Normal rate Speech Volume: Normal Thought process: Intact Thought Content: Yes Intact Judgment: Good Insight: Partial - Additional Additional Findings: Patient responded well to inpatient treatment , he denied any depressive, psychotic or manic s/s, he attending groups and denied any side effects. he will follow up with [facility] psychiatric services and medical services. he is not in imenent danger to self or others at present.
== END 2017-05-10 13:20 | disposition home or self-care (01) | DRG 885 ==
LOC: 1ANU 19:09 → SUATTDRO 19:09
PROVIDERS: ADMIT Psychiatry & Neurology Psychiatry; ATTEND Psychiatry & Neurology Psychiatry

== ENCOUNTER 2018-05-17 10:03 | Observation (INO) ==
[2018-05-17] MEDS ORDERED: Ondansetron 4 MG/2 ML VIAL IVP ONE (10:29)
[2018-05-17 10:31] LABS: Basophils # 0.1 K/mcL (0.0-0.2); Basophils % 1.4 %; Eosinophils # 0.8 K/mcL (0.0-0.6); Hematocrit 47.8 % (37.5-50.1); Hemoglobin 16.7 g/dL (12.9-16.9); Immature Granulocytes % 0.5 % (0-4); Lymphocytes # 2.4 K/mcL (0.6-4.6); Lymphocytes % 30.3 %; Mean Corpuscular HGB Conc 34.9 g/dL (31.6-35.5); Mean Corpuscular Hemoglobin 28.3 pg (28.0-33.3); Mean Platelet Volume 10.7 fL (9.4-12.4); Monocytes # 0.6 K/mcL (0.0-1.3); Monocytes % 7.8 %; Platelet Count 199 K/mcL (140-400)
[2018-05-17 10:54] LABS: Troponin I < 0.03 ng/mL (< 0.04)
--- NOTE | 2018-05-17 10:54 | Emergency Department Note ---
Disposition Clinical Impression: Altered mental status Qualifiers: Altered mental status type: unspecified Qualified Code(s): R41.82 - Altered mental status, unspecified Disposition: Admitted As Inpatient Condition: Fair Time of Disposition: 13:46 General Adult HPI - General Chief complaint: ED Weakness Stated complaint: Weakness Time Seen by Provider: 05/17/18 10:09 Source: patient, EMS Mode of arrival: EMS Limitations: altered mental status Nursing Notes Reviewed: Yes Vital Signs Reviewed: Yes - History of Present Illness HPI Narrative: 43-year-old male presenting to the emergency Department chief complaint of weakness and altered mental status. According to EMS patient lives at a long- term mental health care facility. EMS was called this morning for patient being more weak than normal. Unsure what the patient's baseline mental status is. The patient arrived he was alert and oriented 3 but extremely difficult to arouse and fell asleep multiple times during his examination. Patient unable to provide what medication he takes. Unable to provide any past medical history. Patient states he has had some abdominal pain over the past week. Does disclose mild nausea at this time. Pain Scale: 6 - Related Data Home Medications Medication Instructions Recorded Confirmed Atorvastatin [Lipitor] 40 mg PO HS 12/13/16 05/17/18 Canagliflozin [Invokana] 100 mg PO DAILY 12/13/16 05/17/18 Famotidine [Heartburn Prevention] 20 mg PO BID 12/13/16 05/17/18 Fenofibrate Nanocrystallized 145 mg PO DAILY 12/13/16 05/17/18 [Tricor] Gabapentin [Neurontin] 300 mg PO BID 12/13/16 05/17/18 Meloxicam 15 mg PO DAILY 12/13/16 05/17/18 metFORMIN [Glucophage] 1,000 mg PO BIDWM 12/13/16 05/17/18 FLUoxetine HCl [Prozac] 40 mg PO DAILY 05/17/18 05/17/18 Insulin Glargine,Hum.rec.anlog 20 unit SQ DAILY 05/17/18 05/17/18 [Lantus Solostar] lamoTRIgine [Lamotrigine] 200 mg PO DAILY 05/17/18 05/17/18 Previous Rx's Medication Instructions Recorded Quetiapine Fumarate [Quetiapine 800 mg PO HS #14 05/10/17 Fumarate ER] Trazodone HCl 300 mg PO HS PRN #7 05/10/17 Trihexyphenidyl [Artane] 2 mg PO HS #7 05/10/17 clonazePAM [Klonopin] 1 mg PO BID PRN #14 05/10/17 hydrOXYzine pamoate [HydrOXYzine 50 mg PO TID PRN #20 05/10/17 Pamoate] Allergies Allergy/AdvReac Type Severity Reaction Status Date / Time latex Allergy Rash Verified 12/14/16 10:06 Penicillins [PCN] Allergy Rash Verified 12/14/16 10:06 Limitations: ROS unobtainable due to patients medical condition Past Medical History - Past Medical History Attestation: Yes The following information was validated with the patient. Medical history: Reports: diabetes, hypertension, seizures Surgical history: Reports: colostomy, orthopedic, other, other Psychiatric history: Reports: bipolar, previous psychiatric hospitalization - Social History Smoking Status: Never smoker Smokeless Tobacco Status: Yes Alcohol use: Reports: none Drug use: Reports: none Physical Exam - General Limitations: no limitations General appearance: alert, in no apparent distress - Head Head exam: atraumatic, normocephalic, normal inspection - Eye Eye exam: Present: normal appearance, PERRL, EOMI. Absent: scleral icterus, conjunctival injection - ENT ENT exam: normal exam, mucous membranes moist - Neck Neck exam: Present: normal inspection. Absent: tenderness - Chest Chest inspection: Present: normal inspection, symmetric chest wall rise. Absent : tenderness, rash - Respiratory Respiratory exam: Present: normal lung sounds bilaterally. Absent: respiratory distress, wheezes - Cardiovascular Cardiovascular exam: Present: regular rate, normal rhythm, normal heart sounds - Abdominal Exam Abdominal exam: Present: soft, Non-Tender. Absent: distention, guarding, rebound, rigidity - Extremities Exam Extremities exam: Present: normal inspection, full ROM - Neurological Exam Neurological exam: Present: alert, oriented X3 - Psychiatric Psychiatric exam: Present: normal affect, normal mood - Skin Skin exam: Present: warm, intact Course Course Narrative: 43-year-old male presenting with altered mental status and weakness. Patient unable to provide full history of present illness. Patient is alert and oriented to self, place and time. Unable to provide medication list. We will perform basic laboratory analysis along with CT of the head and provide him with Zofran and Narcan. Patient vital signs are stable. Disposition pending results. Most likely admission due to altered mental status. - Reevaluation(s) Reevaluation #1: Patient's laboratory analysis shows mild hyponatremia but otherwise within normal limits. CT of the head within normal limits. We will plan to admit the patient at this time as he is still difficult to arouse. No response to Narcan. I spoke with the hospitalist on-call Neel Agosto who agrees to accept the patient at this time. Patient has stable vital signs. Vital Signs Temperature 97.7 F 05/17/18 10:06 Pulse Rate 97 05/17/18 10:06 Respiratory Rate 18 05/17/18 10:06 Blood Pressure 119/76 05/17/18 10:06 O2 Sat by Pulse Oximetry 95 05/17/18 10:06 Temperature 97.7 F 05/17/18 10:06 Pulse Rate 82 05/17/18 12:49 Respiratory Rate 18 05/17/18 12:49 Blood Pressure 99/70 05/17/18 12:49 O2 Sat by Pulse Oximetry 93 05/17/18 12:49 Oxygen Delivery Oxygen Delivery Room Air Medical Decision Making - Lab Data Result diagrams: 05/17/18 10:19 05/17/18 10:19 Lab Results 05/17/18 05/17/18 05/17/18 Range/Units 10:19 10:19 10:19 WBC 8.0 (4.3-11.1) K/mcL RBC 5.90 H (4.19-5.50) M/mcL Hgb 16.7 (12.9-16.9) g/dL Hct 47.8 (37.5-50.1) % MCV 81.0 L (83.0-100.0) fL MCH 28.3 (28.0-33.3) pg MCHC 34.9 (31.6-35.5) g/dL RDW 16.0 H (11.5-14.5) % Plt Count 199 (140-400) K/mcL MPV 10.7 (9.4-12.4) fL Immature Gran % 0.5 (0-4) % Seg Neutrophils % 50.0 % Lymphocytes % 30.3 % Monocytes % 7.8 % Eosinophils % 10.0 % Basophils % 1.4 % Neutrophils # 4.0 (1.6-8.9) K/mcL Lymphocytes # 2.4 (0.6-4.6) K/mcL Monocytes # 0.6 (0.0-1.3) K/mcL Eosinophils # 0.8 H (0.0-0.6) K/mcL Basophils # 0.1 (0.0-0.2) K/mcL Sodium 135 L (136-145) mEq/L Potassium 5.1 (3.5-5.1) mEq/L Chloride 106 (98-107) mEq/L Carbon Dioxide 21 L (23-29) mEq/L BUN 14 (6-20) mg/dL Creatinine 1.08 (0.70-1.30) mg/dL Est GFR ( Amer) > 60 (> 60) Est GFR (Non-Af Amer) > 60 (> 60) BUN/Creatinine Ratio 13 (6-26) Glucose 335 H (70-105) mg/dL Calculated Osmolality 294 (280-300) Calcium 9.0 (8.6-10.3) mg/dL Total Bilirubin 0.6 (0.3-1.0) mg/dL Direct Bilirubin 0.1 (0.0-0.2) mg/dL Indirect Bilirubin 0.5 (0.0-1.2) mg/dL AST 35 (13-39) Units/L ALT 59 H (7-52) Units/L Alkaline Phosphatase 66 (34-104) Units/L Ammonia 50 (16-53) mcmol/L Troponin I < 0.03 (< 0.04) ng/mL Serum Total Protein 6.1 L (6.4-8.9) g/dL Albumin 4.0 (3.5-5.7) g/dL Globulin 2.1 L (2.4-3.5) g/dL Albumin/Globulin Ratio 1.9 (1.1-2.2) Ethyl Alcohol < 10 (Less than 10) mg/dL - EKG Data EKG #1 EKG attestation: Yes I reviewed and interpreted this EKG. EKG results narrative: Sinus rhythm. 90 beats for minute. DC interval 193, QRS 106, QTC 415. No signs of acute ST segment elevation or ischemia. Compared to previous EKG completed on 05/03/2017 no significant changes.
[2018-05-17 10:56] LABS: Alanine Aminotransferase 59 Units/L (7-52); Albumin/Globulin Ratio 1.9 (1.1-2.2); Alkaline Phosphatase 66 Units/L (34-104); Aspartate Amino Transferase 35 Units/L (13-39); BUN/Creatinine Ratio 13 (6-26); Bilirubin,Direct 0.1 mg/dL (0.0-0.2); Bilirubin,Indirect 0.5 mg/dL (0.0-1.2); Bilirubin,Total 0.6 mg/dL (0.3-1.0); Blood Urea Nitrogen 14 mg/dL (6-20); Carbon Dioxide 21 mEq/L (23-29); Chloride 106 mEq/L (98-107); Ethanol < 10 mg/dL (Less than 10); Globulin 2.1 g/dL (2.4-3.5); Glucose 335 mg/dL (70-105); Osmolality,Calculated 294 (280-300); Potassium 5.1 mEq/L (3.5-5.1); Sodium 135 mEq/L (136-145); Total Protein 6.1 g/dL (6.4-8.9); eGFR For Non-African Americans > 60 (> 60)
[2018-05-17] MEDS ORDERED: D5% in Water 1,000 ML IVC PRN (13:42)
[2018-05-17] MEDS ORDERED: *HR* Dextrose 50 % in Water (Syg) 50 ML SYRINGE IVP PRN (13:42)
[2018-05-17] MEDS ORDERED: Dextrose Gel 15 GM/37.5 ML TUBE PO PRN ×2 (13:42)
[2018-05-17] MEDS ORDERED: Acetaminophen 325 MG TABLET PO PRN (13:42)
[2018-05-17] MEDS ORDERED: Naloxone 0.4 MG/ML INJ IVP PRN (13:42)
--- NOTE | 2018-05-17 13:51 | Emergency Department Note ---
Disposition Clinical Impression: Altered mental status Qualifiers: Altered mental status type: unspecified Qualified Code(s): R41.82 - Altered mental status, unspecified Disposition: Admitted As Inpatient Condition: Fair Time of Disposition: 13:50 General Adult HPI - General Chief complaint: ED Weakness Stated complaint: Weakness Time Seen by Provider: 05/17/18 10:09 Source: patient, EMS Mode of arrival: EMS Limitations: no limitations - History of Present Illness Pain Scale: 6 - Related Data Home Medications Medication Instructions Recorded Confirmed Atorvastatin [Lipitor] 40 mg PO HS 12/13/16 05/17/18 Canagliflozin [Invokana] 100 mg PO DAILY 12/13/16 05/17/18 Famotidine [Heartburn Prevention] 20 mg PO BID 12/13/16 05/17/18 Fenofibrate Nanocrystallized 145 mg PO DAILY 12/13/16 05/17/18 [Tricor] Gabapentin [Neurontin] 300 mg PO BID 12/13/16 05/17/18 Meloxicam 15 mg PO DAILY 12/13/16 05/17/18 metFORMIN [Glucophage] 1,000 mg PO BIDWM 12/13/16 05/17/18 FLUoxetine HCl [Prozac] 40 mg PO DAILY 05/17/18 05/17/18 Insulin Glargine,Hum.rec.anlog 20 unit SQ DAILY 05/17/18 05/17/18 [Lantus Solostar] lamoTRIgine [Lamotrigine] 200 mg PO DAILY 05/17/18 05/17/18 Previous Rx's Medication Instructions Recorded Quetiapine Fumarate [Quetiapine 800 mg PO HS #14 05/10/17 Fumarate ER] Trazodone HCl 300 mg PO HS PRN #7 05/10/17 Trihexyphenidyl [Artane] 2 mg PO HS #7 05/10/17 clonazePAM [Klonopin] 1 mg PO BID PRN #14 05/10/17 hydrOXYzine pamoate [HydrOXYzine 50 mg PO TID PRN #20 05/10/17 Pamoate] Allergies Allergy/AdvReac Type Severity Reaction Status Date / Time latex Allergy Rash Verified 12/14/16 10:06 Penicillins [PCN] Allergy Rash Verified 12/14/16 10:06 Past Medical History - Past Medical History Medical history: Reports: diabetes, hypertension, seizures Surgical history: Reports: colostomy, orthopedic, other, other Psychiatric history: Reports: bipolar, previous psychiatric hospitalization - Social History Smoking Status: Never smoker Smokeless Tobacco Status: Yes Alcohol use: Reports: none Drug use: Reports: none Physical Exam - General Limitations: no limitations General appearance: alert, in no apparent distress Course Vital Signs Temperature 97.7 F 05/17/18 10:06 Pulse Rate 97 05/17/18 10:06 Respiratory Rate 18 05/17/18 10:06 Blood Pressure 119/76 05/17/18 10:06 O2 Sat by Pulse Oximetry 95 05/17/18 10:06 Temperature 97.7 F 05/17/18 10:06 Pulse Rate 82 05/17/18 12:49 Respiratory Rate 18 05/17/18 12:49 Blood Pressure 99/70 05/17/18 12:49 O2 Sat by Pulse Oximetry 93 05/17/18 12:49 Oxygen Delivery Oxygen Delivery Room Air Medical Decision Making - Lab Data Result diagrams: 05/17/18 10:19 05/17/18 10:19 Lab Results 05/17/18 05/17/18 05/17/18 Range/Units 10:19 10:19 10:19 WBC 8.0 (4.3-11.1) K/mcL RBC 5.90 H (4.19-5.50) M/mcL Hgb 16.7 (12.9-16.9) g/dL Hct 47.8 (37.5-50.1) % MCV 81.0 L (83.0-100.0) fL MCH 28.3 (28.0-33.3) pg MCHC 34.9 (31.6-35.5) g/dL RDW 16.0 H (11.5-14.5) % Plt Count 199 (140-400) K/mcL MPV 10.7 (9.4-12.4) fL Immature Gran % 0.5 (0-4) % Seg Neutrophils % 50.0 % Lymphocytes % 30.3 % Monocytes % 7.8 % Eosinophils % 10.0 % Basophils % 1.4 % Neutrophils # 4.0 (1.6-8.9) K/mcL Lymphocytes # 2.4 (0.6-4.6) K/mcL Monocytes # 0.6 (0.0-1.3) K/mcL Eosinophils # 0.8 H (0.0-0.6) K/mcL Basophils # 0.1 (0.0-0.2) K/mcL Sodium 135 L (136-145) mEq/L Potassium 5.1 (3.5-5.1) mEq/L Chloride 106 (98-107) mEq/L Carbon Dioxide 21 L (23-29) mEq/L BUN 14 (6-20) mg/dL Creatinine 1.08 (0.70-1.30) mg/dL Est GFR ( Amer) > 60 (> 60) Est GFR (Non-Af Amer) > 60 (> 60) BUN/Creatinine Ratio 13 (6-26) Glucose 335 H (70-105) mg/dL Calculated Osmolality 294 (280-300) Calcium 9.0 (8.6-10.3) mg/dL Total Bilirubin 0.6 (0.3-1.0) mg/dL Direct Bilirubin 0.1 (0.0-0.2) mg/dL Indirect Bilirubin 0.5 (0.0-1.2) mg/dL AST 35 (13-39) Units/L ALT 59 H (7-52) Units/L Alkaline Phosphatase 66 (34-104) Units/L Ammonia 50 (16-53) mcmol/L Troponin I < 0.03 (< 0.04) ng/mL Serum Total Protein 6.1 L (6.4-8.9) g/dL Albumin 4.0 (3.5-5.7) g/dL Globulin 2.1 L (2.4-3.5) g/dL Albumin/Globulin Ratio 1.9 (1.1-2.2) Ethyl Alcohol < 10 (Less than 10) mg/dL Attestation Statement - Attestation Attestation: Eye separately interviewed and examined this patient independent of the resident. I was quite concerned that the patient may have intentionally overdosed on a sedative medication because he states that he was tired of "her raising hell", referring to a female at the place where he lives. He denies SI or HI, but I am not clear that this is believable. I agree with the evaluation and decision to admit to hospitalist.
--- NOTE | 2018-05-17 14:09 | Internal Med History&Physical ---
<Lisandro Chandra - Last Filed: 05/17/18 18:43> Date of Encounter: 05/17/18 Time of Encounter: 13:00 Internal Medicine - H&P: HPI Chief complaint: AMS/Weakness Admitted From: Emergency Dept Plans for Post Hospital Care: Home History of present illness: Mr. Chow is a 43 year old male w/PMH of diabetes, HLD, seizures, bipolar depression disorder, and previous psychiatric hospitalization presents from the ED with chief complaint of altered mental status and weakness that patient reports began yesterday. Patient states that he slept all day and felt weak and tired. Reports same symptoms approx. 1 month ago. Patient also reports loss of appetite, abdominal pain, nausea and diarrhea for the past week. Not sure of sick contacts. Lives in an inpatient/outpatient treatment facility. No alleviating or aggravating factors. Also reports intermittent shortness of breath. Patient states due to feeling sick he took his medications late last night but is unclear on how many he took. Denies any ideations of self-harm or harming others. Required redirection during history taking and is a poor historian. Patient denies recent illness, fever, chills, vomiting, headache, changes in vision, chest pain, palpitations, dizziness, lightheadedness, numbness, tingling, pre-syncope, or syncope. Past Med Surg Social Fam HX - Past Medical History Source: patient, old records reviewed Medical history: diabetes, hypertension, seizures Additional medical history: Reports that his last seizure was approximately 5 years ago. Psychiatric history: bipolar, depression, previous psychiatric hospitalization - Past Surgical History Surgical History: colostomy, orthopedic, other, other Additional surgical history: right shoulder. abdominal surgery - Social History Smoking Status: Never smoker Smokeless Tobacco Status: Yes Alcohol use: none Drug use: none Current living situation: Other ([facility] ) Recent Out of Country Travel Within the Last 8 Weeks: No Exposure or Possible Exposure to Illness During Travel: No - Family History Mother Race: Family Member Ethnicity: Non- Living Status: Age at : 56 Cause of : Lung cancer Hx Family Cancer: Yes (Lung) Father History Unknown: Yes Race: Family Member Ethnicity: Non- Brother Race: Family Member Ethnicity: Non- Living Status: Still Living Hx Family Medical Disorders: No Sister Race: Family Member Ethnicity: Non- Living Status: Still Living Hx Family Psychosocial Disorders: Yes (Mental Health issues) Internal Medicine - H&P: Meds Atorvastatin [Lipitor] 40 mg PO HS 12/13/16 [History] Canagliflozin [Invokana] 100 mg PO DAILY 12/13/16 [History] Famotidine [Heartburn Prevention] 20 mg PO BID 12/13/16 [History] Fenofibrate Nanocrystallized [Tricor] 145 mg PO DAILY 12/13/16 [History] Gabapentin [Neurontin] 300 mg PO BID 12/13/16 [History] Meloxicam 15 mg PO DAILY 12/13/16 [History] metFORMIN [Glucophage] 1,000 mg PO BIDWM 12/13/16 [History] Quetiapine Fumarate [Quetiapine Fumarate ER] 800 mg PO HS #14 05/10/17 [Rx] Trazodone HCl 300 mg PO HS PRN #7 05/10/17 [Rx] Trihexyphenidyl [Artane] 2 mg PO HS #7 05/10/17 [Rx] clonazePAM [Klonopin] 1 mg PO BID PRN #14 05/10/17 [Rx] hydrOXYzine pamoate [HydrOXYzine Pamoate] 50 mg PO TID PRN #20 05/10/17 [Rx] FLUoxetine HCl [Prozac] 40 mg PO DAILY 05/17/18 [History] Insulin Glargine,Hum.rec.anlog [Lantus Solostar] 20 unit SQ DAILY 05/17/18 [ History] lamoTRIgine [Lamotrigine] 200 mg PO DAILY 05/17/18 [History] 3 Allergy/AdvReac Type Severity Reaction Status Date / Time latex Allergy Rash Verified 12/14/16 10:06 Penicillins [PCN] Allergy Rash Verified 12/14/16 10:06 All Systems PM: A 10-system review of systems was performed and is negative for pertinent findings except as documented above in the HPI. - Constitutional Constitutional: as per HPI, anorexia, fatigue, weakness, no chills, no fever(s) , no night sweats - EENT Eyes: no change in vision, no discharge, no pain, no photophobia Ears: no ear discharge, no ear pain, no tinnitus Nose, mouth and throat: no dysphagia, no nasal discharge, no neck pain, no sore throat - Breasts Breasts: as per HPI - Cardiovascular Cardiovascular ROS IM: dyspnea, dyspnea on exertion, no chest pain, no diaphoresis, no lightheadedness, no palpitations, no syncope - Respiratory Respiratory: as per HPI, dyspnea, dyspnea on exertion, no cough, no wheezing, no excessive phlegm production - Gastrointestinal Gastrointestinal: as per HPI, abdominal pain, diarrhea, nausea, no hematemesis, no hematochezia, no melena, no vomiting - Genitourinary Genitourinary ROS male: as per HPI - Musculoskeletal Musculoskeletal ROS IM: as per HPI, no numbness, no tingling - Integumentary Integumentary IM: no rash, no unusual bruising - Neurological Neurological ROS: as per HPI, weakness, no confusion, no convulsions, no focal weakness, no numbness, no tingling, no tremor(s) - Psychiatric Psychiatric: as per HPI, depression, other (Previous psychiatric hospitalization ) - Endocrine Endocrine IM: as per HPI - Hematologic/Lymphatic Hematologic/Lymphatic: no easy bruising - Allergic/Immunologic Allergic/Immunologic: as per HPI - Constitutional Vitals: Temp Pulse Resp BP Pulse Ox 97.7 F 83 15 117/77 95 05/17/18 13:54 05/17/18 13:54 05/17/18 13:54 05/17/18 13:54 05/17/18 13:54 General appearance: Present: cooperative, A&O X 1, disheveled, no acute distress , obese, answers questions appropriately (W/re-direction) - Head Head exam: Present: atraumatic, normocephalic - Eye Eye exam: Present: PERRL, conjuntiva pink, sclera anicteric Pupils: Present: PERRL - ENT ENT exam: Present: normal exam - Neck Neck exam general surgery: Present: supple, trachea midline. Absent: lymphadenopathy - Respiratory Respiratory exam: Present: CTAB. Absent: accessory muscle use, rales, rhonchi, wheezes - Cardiovascular Cardiovascular exam: Present: RRR, +S1, +S2. Absent: diastolic murmur, gallop, rubs, systolic murmur - GI/Abdominal GI/Abdominal exam: Present: normal bowel sounds, soft, no peritoneal signs. Absent: distended, tenderness - Rectal Rectal exam: Present: deferred - Additional comments: exam deferred. - Extremities Exam Extremities exam: Present: warm, radial pulses palpable and symmetrical. Absent : calf tenderness, cyanotic, pedal edema - Back Exam Back exam: Present: normal inspection - Neurological Exam Neurological exam: Present: altered - Psychiatric Psychiatric exam: Present: flat affect - Skin Skin exam: Present: dry, intact Internal Med - H&P Results - Labs CBC & Chem 7: 05/17/18 10:19 05/17/18 10:19 - EKG Data EKG shows normal: sinus rhythm Rate: normal - EKG Data Prior EKG available for review: yes EKG comments: 05/17/18 14:16 EKG dated 05/03/17 shows sinus rhythm baseline artifact. EKG dated 05/17/18 shows sinus rhythm with normal ECG. - Diagnostic Studies Chest x-ray Additional comments: Impressions Chest X-Ray 05/17/18 10:09 IMPRESSION: Low lung volumes with bibasilar atelectasis. D/ / Claire Mays MD / Claire Mays MD Interpreting Provider: Claire Mays MD CT scan - head Additional comments: Impressions Head CT 05/17/18 11:19 IMPRESSION: No acute intracranial abnormality. D/ / Giovanny Clement MD / Giovanny Clement MD Interpreting Provider: Giovanny Clement MD - Assessment and plan (1) Altered mental status Status: Acute Assessment and plan: Acute AMS d/t unknown etiology. Patient reports altered mental status and weakness that began yesterday. Patient states due to feeling sick he took his medications late last night but is unclear on how many he took, so AMS may be d/ t medications and dosing. Patient states that he slept all day and felt weak and tired. Reports same symptoms approx. 1 month ago. Patient also reports loss of appetite, abdominal pain, nausea and diarrhea for the past week. Not sure of sick contacts. Lives in an inpatient/outpatient treatment facility. No alleviating or aggravating factors. Also reports intermittent shortness of breath. Denies any ideations of self-harm or harming others. Required redirection during history taking and is a poor historian. Head CT shows no intracranial abnormality.Urine tox screen ordered. U/A ordered. Respiratory infection panel, legionella, and strep pneumoniae antigens ordered d/t current living situation. Dysphagia screen and aspiration precautions until pt. more A& O. NPO until dysphagia screen passed. Request medical records from [facility]. Falls/safety precautions and up with assist. Pt. discussed w/Dr. Agosto who agrees w/plan of care. Pt. is moderate risk for further morbidity d /t current AMS of unknown etiology, hx of poorly-controlled DM, hx of bipolar disorder and schizophrenia, and risk factors. Observation. Qualifiers: Altered mental status type: disorientation Qualified Code(s): R41.0 - Disorientation, unspecified (2) Hyperlipidemia Status: Chronic Assessment and plan: Hx of chronic HLD. Lipid panel in a.m. labs. Continue pts. Lipitor. Qualifiers: Hyperlipidemia type: pure hypercholesterolemia Qualified Code(s): E78.00 - Pure hypercholesterolemia, unspecified; E78.0 - Pure hypercholesterolemia (3) Schizophrenia Status: Chronic Assessment and plan: Hx of chronic schizophrenia. Will hold pts. medications today d/t unknown dosing yesterday and current AMS Qualifiers: Schizophrenia type: unspecified Qualified Code(s): F20.9 - Schizophrenia, unspecified (4) Bipolar 1 disorder Status: Chronic Assessment and plan: Hx of chronic bipolar disorder. Will hold pts. medications today d/t unknown dosing yesterday and current AMS. (5) Diabetes Status: Chronic Assessment and plan: Hx of chronic diabetes controlled with oral antihyperglycemic medications and insulin. Hold metformin and continue patient's Imdur and 20 units SQ daily of Levemir. Add medium dose correction sliding scale with hypoglycemic protocol due to patient's current poorly-controlled diabetes. BG checks before meals at bedtime. A1c in a.m. labs. Diabetes Education consult ordered. 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 Pt. unsure of when last seizure was but states it's been awhile. Continue pts. Lamotrigine. (7) DVT prophylaxis Status: Acute Assessment and plan: Lovenox 40 mg SQ 06:0 daily for DVT prophylaxis. Monitor pt. for signs of bleeding. - Time Spent With Patient Total time spent is greater than 50% in coordination of care (as documented) at patient's floor/unit and/or counseling patient: Greater than 35 minutes <Bret Agosto - Last Filed: 05/19/18 12:54> Date of Encounter: 05/17/18 Internal Medicine - H&P: HPI History of present illness: Mr. Chow is a 43 year old male All Systems PM: A 10-system review of systems was performed and is negative for pertinent findings except as documented above in the HPI. - Constitutional Vitals: Temp Pulse Resp BP Pulse Ox 98.0 F 76 16 127/81 94 05/18/18 10:39 05/18/18 10:39 05/18/18 10:39 05/18/18 10:39 05/18/18 10:39 Internal Med - H&P Results - Labs CBC & Chem 7: 05/18/18 05:04 05/18/18 05:04 Labs: Urine 05/18/18 Range/Units 14:25 Urine Color Yellow (Yellow) Urine Clarity Clear (Clear) Urine pH 7.0 (5.0-8.0) pH Units Ur Specific [place] > 1.030 H (1.010-1.025) Urine Protein Negative (Neg-Trace) mg/dL Urine Glucose (UA) >=1000 H (Normal) mg/dL - Attending Attestation I SAW/EXAMINED AND EVALUATED THE PATIENT WITH THE TEXTILE MACHINE MAINTENANCE MECHANIC/PA/ ON THE DAY OF ADMISSION. THE CASE WAS DISCUSSED WITH HIM/HER. I AGREE WITH THE FINDINGS/PLAN , DOCUMENTED IN THE TEXTILE MACHINE MAINTENANCE MECHANIC/PA'S H&P. THE DOCUMENT WAS EDITED BY ME TO CORRECT ERRORS AND ADD MISSING DATA. - Assessment and plan (1) Hyperlipidemia Status: Chronic Qualifiers: Hyperlipidemia type: pure hypercholesterolemia Qualified Code(s): E78.00 - Pure hypercholesterolemia, unspecified; E78.0 - Pure hypercholesterolemia (2) Schizophrenia Status: Chronic Qualifiers: Schizophrenia type: unspecified Qualified Code(s): F20.9 - Schizophrenia, unspecified (3) Bipolar 1 disorder Status: Chronic (4) Altered mental status Status: Acute Qualifiers: Altered mental status type: disorientation Qualified Code(s): R41.0 - Disorientation, unspecified (5) Diabetes Status: Chronic Qualifiers: Diabetes mellitus type: type 2 Diabetes mellitus local intermodal truck driver insulin use: unspecified prison insulin use status Diabetes mellitus complication status : with unspecified complications Qualified Code(s): E11.8 - Type 2 diabetes mellitus with unspecified complications (6) DVT prophylaxis Status: Acute (7) History of seizures Status: Chronic - Time Spent With Patient Total time spent is greater than 50% in coordination of care (as documented) at patient's floor/unit and/or counseling patient:
[2018-05-17] MEDS ORDERED: Ondansetron 4 MG/2 ML VIAL IVP PRN (14:21)
[2018-05-17 15:44] LABS: Adenovirus Not Detected (Not Detect); Coronavirus 229E Not Detected (Not Detect); Coronavirus HKU1 Not Detected (Not Detect); Coronavirus NL63 Not Detected (Not Detect); Coronavirus OC43 Not Detected (Not Detect); Human Metapneumovirus Not Detected (Not Detect); Human Rhinovirus/Enterovirus Not Detected (Not Detect); Influenza A Subtype 2009 H1 Not Detected (Not Detect); Influenza A Untypeable Not Detected (Not Detect)
[2018-05-17 15:45] LABS: Bordetella Pertussis Not Detected (Not Detect); Chlamydophila pneumoniae Not Detected (Not Detect); Influenza B Not Detected (Not Detect); Mycoplasma pneumoniae Not Detected (Not Detect); Parainfluenza Virus 1 Not Detected (Not Detect); Parainfluenza Virus 2 Not Detected (Not Detect); Parainfluenza Virus 3 Not Detected (Not Detect); Parainfluenza Virus 4 Not Detected (Not Detect); Respiratory Syncytial Virus Not Detected (Not Detect)
[2018-05-17] MEDS: Insulin LISPRO 300 UNITS/3 ML VIAL SQ SCH (16:53)
[2018-05-17] MEDS ORDERED: Nicotine 2 MG GUM BC PRN (18:16)
[2018-05-17] MEDS: Nicotine 2 MG GUM BC PRN ×2 (20:07→22:14)
[2018-05-17 20:16] LABS: Amphetamine Screen,Urine Negative ng/mL (Cutoff=1000); Barbiturate Screen,Urine Negative ng/mL (Cutoff=200); Benzodiazepines Screen,Urine Negative ng/mL (Cutoff=200); Cannabinoid Screen,Urine Negative ng/mL (Cutoff = 50); Cocaine Screen,Urine Negative ng/mL (Cutoff= 300); Opiate Screen,Urine Negative ng/mL (Cutoff=300); Phencyclidine Screen,Urine Negative ng/mL (Cutoff=25)
[2018-05-17] MEDS: Famotidine 20 MG TABLET PO SCH (20:45)
[2018-05-17] MEDS ORDERED: Insulin LISPRO 300 UNITS/3 ML VIAL SQ SCH (21:00)
[2018-05-18] MEDS: Nicotine 2 MG GUM BC PRN ×5 (05:11→15:02)
[2018-05-18 05:24] LABS: Basophils # 0.1 K/mcL (0.0-0.2); Basophils % 1.2 %; Eosinophils # 0.8 K/mcL (0.0-0.6); Eosinophils % 10.4 %; Hematocrit 49.2 % (37.5-50.1); Hemoglobin 16.4 g/dL (12.9-16.9); Immature Granulocytes % 0.7 % (0-4); Lymphocytes # 3.2 K/mcL (0.6-4.6); Lymphocytes % 39.8 %; Mean Corpuscular HGB Conc 33.3 g/dL (31.6-35.5); Mean Corpuscular Hemoglobin 27.6 pg (28.0-33.3); Mean Corpuscular Volume 82.7 fL (83.0-100.0); Mean Platelet Volume 10.2 fL (9.4-12.4); Monocytes # 0.6 K/mcL (0.0-1.3); Monocytes % 7.5 %; Neutrophils # 3.3 K/mcL (1.6-8.9); Platelet Count 192 K/mcL (140-400); Red Blood Count 5.95 M/mcL (4.19-5.50); Red Cell Distribution Width 17.1 % (11.5-14.5); Segmented Neutrophils % 40.4 %
[2018-05-18 05:41] LABS: Alanine Aminotransferase 59 Units/L (7-52); Albumin 4.1 g/dL (3.5-5.7); Albumin/Globulin Ratio 1.9 (1.1-2.2); Alkaline Phosphatase 56 Units/L (34-104); Aspartate Amino Transferase 43 Units/L (13-39); BUN/Creatinine Ratio 15 (6-26); Bilirubin,Total 0.9 mg/dL (0.3-1.0); Blood Urea Nitrogen 19 mg/dL (6-20); Calcium 9.5 mg/dL (8.6-10.3); Carbon Dioxide 28 mEq/L (23-29); Chloride 104 mEq/L (98-107); Chol/HDL Ratio 3.9 (0-4.9); Cholesterol 93 mg/dL (< 200); Globulin 2.2 g/dL (2.4-3.5); Glucose 196 mg/dL (70-105); HDL Cholesterol 24 mg/dL (40-59); LDL Cholesterol,Calculated 46 mg/dL (0-99); Osmolality,Calculated 292 (280-300); Potassium 4.9 mEq/L (3.5-5.1); Sodium 137 mEq/L (136-145); Total Protein 6.3 g/dL (6.4-8.9); Triglycerides 115 mg/dL (< 150); eGFR For Non-African Americans > 60 (> 60)
[2018-05-18] MEDS ORDERED: *HR* Enoxaparin 40 MG/0.4 ML SYRINGE SQ SCH (06:00)
[2018-05-18] MEDS: Famotidine 20 MG TABLET PO SCH (07:48)
[2018-05-18] MEDS: Insulin LISPRO 300 UNITS/3 ML VIAL SQ SCH ×2 (07:52→12:24)
[2018-05-18] MEDS ORDERED: (Canagliflozin [Invokana] 100 MG) PO SCH (09:00)
[2018-05-18] MEDS ORDERED: Fenofibrate 54 MG TABLET PO SCH (09:00)
[2018-05-18] MEDS ORDERED: lamoTRIgine 100 MG TABLET PO SCH (09:00)
[2018-05-18] MEDS ORDERED: Insulin DETEMIR 100 UNIT/ML X5UNITS SQ SCH (09:00)
[2018-05-18 09:42] LABS: Estimated Average Glucose 166 mg/dl; Hemoglobin A1C 7.4 %
[2018-05-18 10:39] VITALS: BP 127/81
--- NOTE | 2018-05-18 13:29 | Discharge Summary ---
Orders not resulted at time of discharge: Pending orders 05/19/18 04:00 Basic Metabolic Panel AM 0400 Complete Blood Count [HEME] AM 0400 Complete Blood Count [HEME] AM 0400 Comprehensive Metabolic Panel AM 0400 05/20/18 04:00 Basic Metabolic Panel AM 0400 Complete Blood Count [HEME] AM 0400 Complete Blood Count [HEME] AM 0400 Comprehensive Metabolic Panel AM 0400 05/21/18 04:00 Basic Metabolic Panel AM 0400 Complete Blood Count [HEME] AM 0400 Date of Encounter: 05/18/18 Time of Encounter: 10:10 - Discharge Diagnosis (1) Hyperlipidemia Priority: Secondary Status: Chronic Assessment and Plan: Hx of chronic HLD. Continue pts. Lipitor. Qualifiers: Hyperlipidemia type: pure hypercholesterolemia Qualified Code(s): E78.00 - Pure hypercholesterolemia, unspecified; E78.0 - Pure hypercholesterolemia (2) Schizophrenia Priority: Secondary Status: Chronic Assessment and Plan: Chronic. Continue home medications after discharge. Qualifiers: Schizophrenia type: unspecified Qualified Code(s): F20.9 - Schizophrenia, unspecified (3) Bipolar 1 disorder Priority: Secondary Status: Chronic Assessment and Plan: Chronic. Continue home medications. (4) Altered mental status Priority: Secondary Status: Acute Assessment and Plan: Pt reports that he is back to baseline. He also states that he needed another day here since his van is in the shop and won't be done until tomorrow, he does n't have any money until he gets paid tomorrow. When questioned if he is homeless, pt states, "I might be." He admits that he came here to have a place to stay overnight. He also reports that he has been staying with his ex- girlfriend and is able to go back there today and stay until tomorrow. Pt is alert and awake, answers questions appropriately. There are no focal neurological deficits and pt states that he is at baseline. He denies weakness, but states that he feels tired. Head CT shows no intracranial abnormality.Urine tox screen negative. U/A ordered , but never collected. Respiratory infection panel negative, legionella, and strep pneumoniae antigens negative. Pt denies nausea, vomiting, diarrhea, constipation, chest pain, SOB, headache, dizziness, vision changes, or peripheral edema. He denies need for medication refills. Qualifiers: Altered mental status type: disorientation Qualified Code(s): R41.0 - Disorientation, unspecified (5) Diabetes Priority: Secondary Status: Chronic Assessment and Plan: A1c 7.4%. Chronic. Continue home medications. Qualifiers: Diabetes mellitus type: type 2 Diabetes mellitus jail insulin use: unspecified jail insulin use status Diabetes mellitus complication status : with unspecified complications Qualified Code(s): E11.8 - Type 2 diabetes mellitus with unspecified complications (6) History of seizures Priority: Secondary Status: Chronic Assessment and Plan: Chronic. Continue home medications. (7) DVT prophylaxis Priority: Secondary Status: Acute Assessment and Plan: [facility] course: Mr. Chow is a 43 year old male with past medical history of diabetes, hypertension, hyperlipidemia, bipolar disorder, schizophrenia, prior suicidal ideation, anxiety, seizure disorder. Patient presented to the emergency department with increased somnolence, weakness, fatigue. He reports loss of appetite, abdominal pain, nausea, diarrhea. Week. Patient reports that he has been living with his ex-girlfriend, not in the inpatient/outpatient treatment facility as he previously told staff. He does not appear to be any metabolic cause for his symptoms, respiratory infectious panel and urine, urine drug screen are negative. Chest x-ray was negative. His labs are all stable and within normal limits. Upon examination this morning, he states that he needed to stay an extra day because his van is in the shop and will not be ready until tomorrow and he does not have any money until he gets paid tomorrow. He also denies any of his above mentioned symptoms and states that he is at his baseline , basically admits that he needed a place to stay overnight until he has his van and money. He is alert, awake, answers all questions appropriately, his gait is steady and he is safe and appropriate for discharge home with his ex girlfriend. Discharge discussed with: patient, nurse, case management - Time Spent with Patient Total time spent providing and/or coordinating discharge services: Less than 30 minutes - Discharge Medications Home Medications: Atorvastatin [Lipitor] 40 mg PO HS 12/13/16 [History] Canagliflozin [Invokana] 100 mg PO DAILY 12/13/16 [History] Famotidine [Heartburn Prevention] 20 mg PO BID 12/13/16 [History] Fenofibrate Nanocrystallized [Tricor] 145 mg PO DAILY 12/13/16 [History] Gabapentin [Neurontin] 300 mg PO BID 12/13/16 [History] Meloxicam 15 mg PO DAILY 12/13/16 [History] metFORMIN [Glucophage] 1,000 mg PO BIDWM 12/13/16 [History] Quetiapine Fumarate [Quetiapine Fumarate ER] 800 mg PO HS #14 05/10/17 [Rx] Trazodone HCl 300 mg PO HS PRN #7 05/10/17 [Rx] Trihexyphenidyl [Artane] 2 mg PO HS #7 05/10/17 [Rx] clonazePAM [Klonopin] 1 mg PO BID PRN #14 05/10/17 [Rx] hydrOXYzine pamoate [HydrOXYzine Pamoate] 50 mg PO TID PRN #20 05/10/17 [Rx] FLUoxetine HCl [Prozac] 40 mg PO DAILY 05/17/18 [History] Insulin Glargine,Hum.rec.anlog [Lantus Solostar] 20 unit SQ DAILY 05/17/18 [ History] lamoTRIgine [Lamotrigine] 200 mg PO DAILY 05/17/18 [History] Allergies/Adverse Reactions: 3 Allergy/AdvReac Type Severity Reaction Status Date / Time latex Allergy Rash Verified 12/14/16 10:06 Penicillins [PCN] Allergy Rash Verified 12/14/16 10:06 Date of admission: 05/17/18 13:11 Primary care physician: PCP NONE Consults: 05/17/18 13:44 Consult to Licensed Vocational Nurse [CONS] Routine Reason for Consult: Pt. resides at [facility]. Please assess pt. for possible home needs for post-discharge planning. 05/17/18 14:19 Consult to Diabetes Education [CONS] Routine Comment: Reason for Consult: Patient is diabetic and currently is not well- controlled. Please assess for need for diet and compliance education. Discharging clinician: Tati Leblanc Anticipated date of discharge: 05/18/18 - Constitutional Vitals: Temp Pulse Resp BP Pulse Ox 98.0 F 76 16 127/81 94 05/18/18 10:39 05/18/18 10:39 05/18/18 10:39 05/18/18 10:39 05/18/18 10:39 General appearance: Present: cooperative, disheveled, A&O X 3, pleasant, no acute distress, obese, answers questions appropriately (W/re-direction). Absent : mild distress - Head Head exam: Present: atraumatic, normal inspection, normocephalic - Eye Eye exam: Present: EOMI, normal appearance, conjuntiva pink, sclera anicteric. Absent: nystagmus - Neck Neck exam general surgery: Present: supple, trachea midline. Absent: lymphadenopathy, tenderness - Respiratory Respiratory exam: Present: CTAB. Absent: accessory muscle use, chest wall tenderness, rales, respiratory distress, rhonchi, wheezes - Cardiovascular Cardiovascular exam: Present: RRR, +S1, +S2. Absent: diastolic murmur, gallop, rubs, systolic murmur - GI/Abdominal GI/Abdominal exam: Present: normal bowel sounds, soft. Absent: distended, hepatomegaly, tenderness - Extremities Exam Extremities exam: Present: normal capillary refill, normal inspection, warm, radial pulses palpable and symmetrical. Absent: calf tenderness, cyanotic, pedal edema, tenderness - Neurological Exam Neurological exam: Present: alert, oriented X3, no focal deficits. Absent: abnormal gait, motor sensory deficit, facial droop, speech deficit - Skin Skin exam: Present: dry, intact, normal color, warm. Absent: rash - Patient Status Disposition: Home, Self-Care Condition: Good Functional capacity at discharge: independent ambulation Overall status at discharge: patient is back to baseline - Discharge Instructions Follow Up With: NONE,PCP [Primary Care Provider] - Additional Instructions: Follow up with your PCP Take your medications as directed. Return to the ER as needed for any other problems or concerns, or if your symptoms return or worsen. Resume your normal medications and return to your normal diet and activties as tolerated. - Diet and Activity Activity: increase activity as tolerated Diet: diabetic diet
[2018-05-18 14:49] LABS: Clarity,Urine Clear (Clear); Color,Urine Yellow (Yellow)
[2018-05-18 14:50] LABS: Bilirubin,Urine Negative (Negative); Blood,Urine Negative (Negative); Glucose,Urine (UA) >=1000 mg/dL (Normal); Ketones,Urine Negative (Negative); Leukocyte Esterase,Urine Negative (Negative); Nitrite,Urine Negative (Negative); Protein,Urine Negative (Neg-Trace); Specific Gravity,Urine > 1.030 (1.010-1.025); Urobilinogen,Urine Normal (Normal)
--- NOTE | 2018-05-18 21:19 | Electrocardiograph Report ---
[facility] Test Date: 2018-05-17 Pat Name: Delvis Chow Department: 103 Room: Gender: M Director Export: [place] : 1975 Requested By: Vivienne Jarrett Order Number: [id number] Reading MD: Caty Kim Measurements Intervals [place] Rate: 98 P: 42 TX: 193 QRS: 7 QRSD: 106 T: 43 QT: 360 QTc: 415 Interpretive Statements SINUS RHYTHM Electronically Signed On 05-18-2018 5:40:55 EDT by Caty Kim
== END 2018-05-18 15:06 | disposition home or self-care (01) ==
LOC: EMEROO 10:03 → 3BNU 10:03
PROVIDERS: ADMIT Internal Medicine; ATTEND Internal Medicine

== ENCOUNTER 2018-08-08 13:27 | Observation (INO) ==
[2018-08-08 14:41] LABS: Basophils # 0.2 K/mcL (0.0-0.2); Basophils % 0.9 %; Eosinophils # 1.2 K/mcL (0.0-0.6); Eosinophils % 7.1 %; Hematocrit 50.8 % (37.5-50.1); Hemoglobin 17.2 g/dL (12.9-16.9); Immature Granulocytes % 0.9 % (0-4); Lymphocytes % 43.3 %; Mean Corpuscular HGB Conc 33.9 g/dL (31.6-35.5); Mean Corpuscular Hemoglobin 27.9 pg (28.0-33.3); Mean Corpuscular Volume 82.3 fL (83.0-100.0); Mean Platelet Volume 10.3 fL (9.4-12.4); Monocytes # 1.3 K/mcL (0.0-1.3); Monocytes % 7.7 %; Neutrophils # 6.5 K/mcL (1.6-8.9); Platelet Count 277 K/mcL (140-400); Red Blood Count 6.17 M/mcL (4.19-5.50); Red Cell Distribution Width 13.7 % (11.5-14.5); Segmented Neutrophils % 40.1 %
[2018-08-08 15:07] LABS: Salicylate < 2.5 mg/dL (15.0-30.0)
[2018-08-08 15:08] LABS: Acetaminophen < 10 mcg/mL (10-20); BUN/Creatinine Ratio 19 (6-26); Blood Urea Nitrogen 29 mg/dL (6-20); Calcium 10.1 mg/dL (8.6-10.3); Carbon Dioxide 23 mEq/L (23-29); Chloride 102 mEq/L (98-107); Ethanol < 10 mg/dL (Less than 10); Glucose 59 mg/dL (70-105); Osmolality,Calculated 284 (280-300); Potassium 3.9 mEq/L (3.5-5.1); Sodium 135 mEq/L (136-145); eGFR For Non-African Americans 49 (> 60)
--- NOTE | 2018-08-08 15:11 | Emergency Department Note ---
Disposition Clinical Impression: ROBERTO (acute kidney injury) Disposition: Admitted As Inpatient Condition: Good General Adult HPI - General Chief complaint: ED Medical Clearance Stated complaint: Medical clearance Time Seen by Provider: 08/08/18 13:42 Source: patient Limitations: no limitations Nursing Notes Reviewed: Yes Vital Signs Reviewed: Yes - History of Present Illness HPI Narrative: 43-year-old male sent in from [facility] for medical clearance. Pt follows up with [facility] outpatient service. Pt visited there today and complained of more depression due to bad living situation. Pt expressed suicidal thought but no plan. [facility] decided to admit patient for depression management after being medically cleared. Pt has history of diabetes. Pt stated his last meal was yesterday. He took his diabetes medication this morning and noon. No cough. No chills and fever. Pain Scale: 6 - Related Data Home Medications Medication Instructions Recorded Confirmed Atorvastatin [Lipitor] 40 mg PO HS 12/13/16 08/08/18 Canagliflozin [Invokana] 100 mg PO DAILY 12/13/16 08/08/18 Famotidine [Heartburn Prevention] 20 mg PO BID 12/13/16 08/08/18 Fenofibrate Nanocrystallized 145 mg PO DAILY 12/13/16 08/08/18 [Tricor] Gabapentin [Neurontin] 300 mg PO BID 12/13/16 08/08/18 Meloxicam 15 mg PO DAILY 12/13/16 08/08/18 metFORMIN [Glucophage] 1,000 mg PO BIDWM 12/13/16 08/08/18 FLUoxetine HCl [Prozac] 40 mg PO DAILY 05/17/18 08/08/18 Insulin Glargine,Hum.rec.anlog 20 unit SQ DAILY 05/17/18 08/08/18 [Lantus Solostar] lamoTRIgine [Lamotrigine] 200 mg PO DAILY 05/17/18 08/08/18 Insulin ASPART [Novolog Flexpen] 10 unit SQ BID 08/08/18 08/08/18 Lisinopril [Zestril] 10 mg PO DAILY 08/08/18 08/08/18 Metoprolol [Lopressor] 25 mg PO BID 08/08/18 08/08/18 risperiDONE [Risperidone] 0.5 mg PO BID 08/08/18 08/08/18 Previous Rx's Medication Instructions Recorded Quetiapine Fumarate [Quetiapine 800 mg PO HS #14 05/10/17 Fumarate ER] Trazodone HCl 300 mg PO HS PRN #7 05/10/17 Trihexyphenidyl [Artane] 2 mg PO HS #7 05/10/17 clonazePAM [Klonopin] 1 mg PO BID PRN #14 05/10/17 hydrOXYzine pamoate [HydrOXYzine 50 mg PO TID PRN #20 05/10/17 Pamoate] Allergies Allergy/AdvReac Type Severity Reaction Status Date / Time latex AdvReac Rash Verified 08/08/18 13:37 Penicillins [PCN] AdvReac Rash Verified 08/08/18 13:37 Constitutional: Denies: fever, chills Eyes: Denies: eye pain ENT ED: Denies: ear pain, throat pain Cardiovascular: Denies: chest pain, palpitations Respiratory: Denies: cough, dyspnea Gastrointestinal: Denies: abdominal pain, nausea Genitourinary: Denies: urgency, dysuria Musculoskeletal: Denies: back pain, neck pain Integumentary: Denies: rash, abrasion Neurological: Denies: headache, weakness Psychiatric: Reports: depression, suicidal thoughts. Denies: anxiety Endocrine: Denies: fatigue Hematological/Lymphatic: Denies: easy bleeding Allergic/Immunologic: Denies: facial swelling Past Medical History - Past Medical History Medical history: Reports: diabetes, hypertension, seizures Surgical history: Reports: colostomy, orthopedic, other, other Psychiatric history: Reports: bipolar, depression, previous psychiatric hospitalization - Social History Smoking Status: Never smoker Smokeless Tobacco Status: Yes Alcohol use: Reports: none Drug use: Reports: none Physical Exam - General Limitations: no limitations General appearance: alert, in no apparent distress - Head Head exam: atraumatic - Eye Eye exam: Present: normal appearance. Absent: scleral icterus, conjunctival injection - ENT ENT exam: normal exam - Neck Neck exam: Present: normal inspection - Chest Chest inspection: Present: normal inspection - Respiratory Respiratory exam: Present: normal lung sounds bilaterally. Absent: respiratory distress - Cardiovascular Cardiovascular exam: Present: regular rate - Abdominal Exam Abdominal exam: Present: soft, Non-Tender - Extremities Exam Extremities exam: Present: normal inspection, full ROM. Absent: tenderness - Back Exam Back exam: Present: normal inspection, full ROM. Absent: tenderness - Neurological Exam Neurological exam: Present: alert, oriented X3, CN II-XII intact - Psychiatric Psychiatric exam: Present: depressed - Skin Skin exam: Present: warm, intact Course Vital Signs Temperature 97.4 F L 08/08/18 13:33 Pulse Rate 87 08/08/18 13:33 Respiratory Rate 16 08/08/18 13:33 Blood Pressure 90/54 08/08/18 13:33 O2 Sat by Pulse Oximetry 94 08/08/18 13:33 Temperature 98.3 F 08/09/18 10:30 Pulse Rate 86 08/09/18 10:30 Respiratory Rate 17 08/09/18 10:30 Blood Pressure 111/72 08/09/18 10:30 O2 Sat by Pulse Oximetry 95 08/09/18 10:30 Oxygen Delivery Oxygen Delivery Room Air Medical Decision Making - MDM Narrative Medical decision making narrative: 43-year-old male with a history of depression and a diabetes presents with [facility] clearance for admission to [facility]. Pt's last time drink and eat was last night. Pt seems fatigue when arriving at ER. His labs indicated elevated Cr, and low BS. Pt is alert and oriented. Pt is given food and one bag of IV fluids in ER. Pt will be admit to hospital for Acute renal failure, dehydration. Dr. Gonzales saw the patient and agrees the above plan. - Lab Data Lab results reviewed: Yes I reviewed the patient's lab results. Result diagrams: 08/08/18 14:20 08/09/18 03:56 Lab Results 08/08/18 08/08/18 08/08/18 Range/Units 14:20 14:20 14:20 WBC 16.3 H (4.3-11.1) K/mcL RBC 6.17 H (4.19-5.50) M/mcL Hgb 17.2 H (12.9-16.9) g/dL Hct 50.8 H (37.5-50.1) % MCV 82.3 L (83.0-100.0) fL MCH 27.9 L (28.0-33.3) pg MCHC 33.9 (31.6-35.5) g/dL RDW 13.7 (11.5-14.5) % Plt Count 277 (140-400) K/mcL MPV 10.3 (9.4-12.4) fL Immature Gran % 0.9 (0-4) % Seg Neutrophils % 40.1 % Lymphocytes % 43.3 % Monocytes % 7.7 % Eosinophils % 7.1 % Basophils % 0.9 % Neutrophils # 6.5 (1.6-8.9) K/mcL Lymphocytes # 7.0 H (0.6-4.6) K/mcL Monocytes # 1.3 (0.0-1.3) K/mcL Eosinophils # 1.2 H (0.0-0.6) K/mcL Basophils # 0.2 (0.0-0.2) K/mcL Sodium 135 L (136-145) mEq/L Potassium 3.9 (3.5-5.1) mEq/L Chloride 102 (98-107) mEq/L Carbon Dioxide 23 (23-29) mEq/L BUN 29 H (6-20) mg/dL Creatinine 1.53 H (0.70-1.30) mg/dL Est GFR ( Amer) 60 (> 60) Est GFR (Non-Af Amer) 49 L (> 60) BUN/Creatinine Ratio 19 (6-26) Glucose 59 L (70-105) mg/dL POC Glucose (70-99) mg/dL Est Mean Plasma Glucose 258 mg/dl Hemoglobin A1c 10.6 H ( - 5.6) % Calculated Osmolality 284 (280-300) Calcium 10.1 (8.6-10.3) mg/dL Urine Color (Yellow) Urine Clarity (Clear) Urine pH (5.0-8.0) pH Units Ur Specific [place] (1.010-1.025) Urine Protein (Neg-Trace) mg/dL Urine Glucose (UA) (Normal) mg/dL Urine Ketones (Negative) mg/dL Urine Blood (Negative) Urine Nitrite (Negative) Urine Bilirubin (Negative) Urine Urobilinogen (Normal) mg/dL Ur Leukocyte Esterase (Negative) Urine Microscopic RBC (0-3) per hpf Urine Microscopic WBC (0-3) per hpf Ur Squamous Epith Cells (None-Few) per lpf Urine Bacteria (None-Few) per hpf Hyaline Casts (None-Few) per lpf Ur Culture Indicated? (NO) Salicylates < 2.5 L (15.0-30.0) mg/dL Urine Opiates Screen (Ncpvjk=213) ng/mL Acetaminophen < 10 L (10-20) mcg/mL Ur Barbiturates Screen (Pwyuzs=863) ng/mL Ur Phencyclidine Scrn (Cutoff=25) ng/mL Ur Amphetamines Screen (Mhporo=7698) ng/mL U Benzodiazepines Scrn (Cqcukt=371) ng/mL Urine Cocaine Screen (Cutoff= 300) ng/mL U Marijuana (THC) Screen (Cutoff = 50) ng/mL Ur Drug Screen Interp Ethyl Alcohol < 10 (Less than 10) mg/dL 08/08/18 08/08/18 08/08/18 Range/Units 15:41 17:30 17:30 WBC (4.3-11.1) K/mcL RBC (4.19-5.50) M/mcL Hgb (12.9-16.9) g/dL Hct (37.5-50.1) % MCV (83.0-100.0) fL MCH (28.0-33.3) pg MCHC (31.6-35.5) g/dL RDW (11.5-14.5) % Plt Count (140-400) K/mcL MPV (9.4-12.4) fL Immature Gran % (0-4) % Seg Neutrophils % % Lymphocytes % % Monocytes % % Eosinophils % % Basophils % % Neutrophils # (1.6-8.9) K/mcL Lymphocytes # (0.6-4.6) K/mcL Monocytes # (0.0-1.3) K/mcL Eosinophils # (0.0-0.6) K/mcL Basophils # (0.0-0.2) K/mcL Sodium (136-145) mEq/L Potassium (3.5-5.1) mEq/L Chloride (98-107) mEq/L Carbon Dioxide (23-29) mEq/L BUN (6-20) mg/dL Creatinine (0.70-1.30) mg/dL Est GFR ( Amer) (> 60) Est GFR (Non-Af Amer) (> 60) BUN/Creatinine Ratio (6-26) Glucose (70-105) mg/dL POC Glucose 130 H (70-99) mg/dL Est Mean Plasma Glucose mg/dl Hemoglobin A1c ( - 5.6) % Calculated Osmolality (280-300) Calcium (8.6-10.3) mg/dL Urine Color Yellow (Yellow) Urine Clarity Clear (Clear) Urine pH 6.0 (5.0-8.0) pH Units Ur Specific [place] > 1.030 H (1.010-1.025) Urine Protein Trace (Neg-Trace) mg/dL Urine Glucose (UA) >=1000 H (Normal) mg/dL Urine Ketones Negative (Negative) mg/dL Urine Blood Negative (Negative) Urine Nitrite Negative (Negative) Urine Bilirubin Negative (Negative) Urine Urobilinogen Normal (Normal) mg/dL Ur Leukocyte Esterase Negative (Negative) Urine Microscopic RBC 0-3 (0-3) per hpf Urine Microscopic WBC 0-3 (0-3) per hpf Ur Squamous Epith Cells Many H (None-Few) per lpf Urine Bacteria None Seen (None-Few) per hpf Hyaline Casts None Seen (None-Few) per lpf Ur Culture Indicated? NO (NO) Salicylates (15.0-30.0) mg/dL Urine Opiates Screen Negative (Kjlart=596) ng/mL Acetaminophen (10-20) mcg/mL Ur Barbiturates Screen Negative (Xcqkys=014) ng/mL Ur Phencyclidine Scrn Negative (Cutoff=25) ng/mL Ur Amphetamines Screen Negative (Dngctj=4269) ng/mL U Benzodiazepines Scrn Negative (Sbhuio=958) ng/mL Urine Cocaine Screen Negative (Cutoff= 300) ng/mL U Marijuana (THC) Screen Negative (Cutoff = 50) ng/mL Ur Drug Screen Interp See Below Ethyl Alcohol (Less than 10) mg/dL 08/08/18 Range/Units 18:32 WBC (4.3-11.1) K/mcL RBC (4.19-5.50) M/mcL Hgb (12.9-16.9) g/dL Hct (37.5-50.1) % MCV (83.0-100.0) fL MCH (28.0-33.3) pg MCHC (31.6-35.5) g/dL RDW (11.5-14.5) % Plt Count (140-400) K/mcL MPV (9.4-12.4) fL Immature Gran % (0-4) % Seg Neutrophils % % Lymphocytes % % Monocytes % % Eosinophils % % Basophils % % Neutrophils # (1.6-8.9) K/mcL Lymphocytes # (0.6-4.6) K/mcL Monocytes # (0.0-1.3) K/mcL Eosinophils # (0.0-0.6) K/mcL Basophils # (0.0-0.2) K/mcL Sodium (136-145) mEq/L Potassium (3.5-5.1) mEq/L Chloride (98-107) mEq/L Carbon Dioxide (23-29) mEq/L BUN (6-20) mg/dL Creatinine (0.70-1.30) mg/dL Est GFR ( Amer) (> 60) Est GFR (Non-Af Amer) (> 60) BUN/Creatinine Ratio (6-26) Glucose (70-105) mg/dL POC Glucose 238 H (70-99) mg/dL Est Mean Plasma Glucose mg/dl Hemoglobin A1c ( - 5.6) % Calculated Osmolality (280-300) Calcium (8.6-10.3) mg/dL Urine Color (Yellow) Urine Clarity (Clear) Urine pH (5.0-8.0) pH Units Ur Specific [place] (1.010-1.025) Urine Protein (Neg-Trace) mg/dL Urine Glucose (UA) (Normal) mg/dL Urine Ketones (Negative) mg/dL Urine Blood (Negative) Urine Nitrite (Negative) Urine Bilirubin (Negative) Urine Urobilinogen (Normal) mg/dL Ur Leukocyte Esterase (Negative) Urine Microscopic RBC (0-3) per hpf Urine Microscopic WBC (0-3) per hpf Ur Squamous Epith Cells (None-Few) per lpf Urine Bacteria (None-Few) per hpf Hyaline Casts (None-Few) per lpf Ur Culture Indicated? (NO) Salicylates (15.0-30.0) mg/dL Urine Opiates Screen (Bekefw=437) ng/mL Acetaminophen (10-20) mcg/mL Ur Barbiturates Screen (Dtbtcr=328) ng/mL Ur Phencyclidine Scrn (Cutoff=25) ng/mL Ur Amphetamines Screen (Xtyldp=7940) ng/mL U Benzodiazepines Scrn (Slbcya=004) ng/mL Urine Cocaine Screen (Cutoff= 300) ng/mL U Marijuana (THC) Screen (Cutoff = 50) ng/mL Ur Drug Screen Interp Ethyl Alcohol (Less than 10) mg/dL
[2018-08-08] MEDS ORDERED: 0.9 % Sodium Chloride 1,000 ML IVC ONE ×3 (15:14→17:23)
[2018-08-08] MEDS ORDERED: 0.9 % Sodium Chloride 1,000 ML ONE (16:29)
--- NOTE | 2018-08-08 17:13 | Internal Med History&Physical ---
Date of Encounter: 08/08/18 Time of Encounter: 17:00 Internal Medicine - H&P: HPI Chief complaint: Suicidal ideation with acute renal failure and hypotension Plans for Post Hospital Care: Transfer Psych Facility History of present illness: Patient is a 43-year-old male with past medical history significant for diabetes, hyperlipidemia, mood disorder and prior psychiatric inpatient stays who presents from [facility] for medical clearance. Patient is a very poor historian but reports of going to from [facility] due to suicidal ideations. While there at the Center patient was sent here for medical clearance due to acute renal failure. In the ER, patient was found to be hemoconcentrated and in acute renal failure in addition to hypotension secondary to dehydration. Patient has been given a total of 1 L bolus in the ER and will be admitted to the medical surgical floor for management of acute renal failure secondary to hypovolemia due to dehydration. Patient will be discharged to from [facility] once medically stable. Past Med Surg Social Fam HX - Past Medical History Medical history: diabetes, hypertension, seizures Additional medical history: Reports that his last seizure was approximately 5 years ago. Psychiatric history: bipolar, depression, previous psychiatric hospitalization - Past Surgical History Surgical History: colostomy, orthopedic, other, other Additional surgical history: right shoulder. abdominal surgery - Social History Smoking Status: Never smoker Smokeless Tobacco Status: Yes Alcohol use: none Drug use: none - Family History Mother Family Member Ethnicity: Non- Living Status: Hx Family Cancer: Yes (Lung) Father Family Member Ethnicity: Non- Brother Family Member Ethnicity: Non- Living Status: Still Living Sister Family Member Ethnicity: Non- Living Status: Still Living Internal Medicine - H&P: Meds Atorvastatin [Lipitor] 40 mg PO HS 12/13/16 [History] Canagliflozin [Invokana] 100 mg PO DAILY 12/13/16 [History] Famotidine [Heartburn Prevention] 20 mg PO BID 12/13/16 [History] Fenofibrate Nanocrystallized [Tricor] 145 mg PO DAILY 12/13/16 [History] Gabapentin [Neurontin] 300 mg PO BID 12/13/16 [History] Meloxicam 15 mg PO DAILY 12/13/16 [History] metFORMIN [Glucophage] 1,000 mg PO BIDWM 12/13/16 [History] Quetiapine Fumarate [Quetiapine Fumarate ER] 800 mg PO HS #14 05/10/17 [Rx] Trazodone HCl 300 mg PO HS PRN #7 05/10/17 [Rx] Trihexyphenidyl [Artane] 2 mg PO HS #7 05/10/17 [Rx] clonazePAM [Klonopin] 1 mg PO BID PRN #14 05/10/17 [Rx] hydrOXYzine pamoate [HydrOXYzine Pamoate] 50 mg PO TID PRN #20 05/10/17 [Rx] FLUoxetine HCl [Prozac] 40 mg PO DAILY 05/17/18 [History] Insulin Glargine,Hum.rec.anlog [Lantus Solostar] 20 unit SQ DAILY 05/17/18 [History] lamoTRIgine [Lamotrigine] 200 mg PO DAILY 05/17/18 [History] Insulin ASPART [Novolog Flexpen] 10 unit SQ BID 08/08/18 [History] Lisinopril [Zestril] 10 mg PO DAILY 08/08/18 [History] Metoprolol [Lopressor] 25 mg PO BID 08/08/18 [History] risperiDONE [Risperidone] 0.5 mg PO BID 08/08/18 [History] Allergy/AdvReac Type Severity Reaction Status Date / Time latex AdvReac Rash Verified 08/08/18 13:37 Penicillins [PCN] AdvReac Rash Verified 08/08/18 13:37 All Systems PM: A 10-system review of systems was performed and is negative for pertinent findings except as documented above in the HPI. - Constitutional Vitals: Temp Pulse Resp BP Pulse Ox 97.4 F L 75 15 72/55 98 08/08/18 13:33 08/08/18 15:40 08/08/18 15:40 08/08/18 15:40 08/08/18 15:40 General appearance: Present: A&O X 3 Exam: As above - Head Head exam: Present: normocephalic - Eye Eye exam: Present: normal appearance - Respiratory Respiratory exam: Present: CTAB. Absent: accessory muscle use, rales, rhonchi, wheezes - Cardiovascular Cardiovascular exam: Present: RRR, +S1, +S2. Absent: diastolic murmur, gallop, rubs, systolic murmur - GI/Abdominal GI/Abdominal exam: Present: normal bowel sounds, soft, no peritoneal signs. Absent: distended, tenderness - Extremities Exam Extremities exam: Absent: pedal edema - Expanded Lower Extremities Exam Lower Leg exam: Absent: swelling - Psychiatric Psychiatric exam: Present: flat affect - Skin Skin exam: Present: normal color Internal Med - H&P Results - Labs CBC & Chem 7: 08/08/18 14:20 08/08/18 14:20 Labs: Short CBC 08/08/18 Range/Units 14:20 WBC 16.3 H (4.3-11.1) K/mcL Hgb 17.2 H (12.9-16.9) g/dL Hct 50.8 H (37.5-50.1) % Plt Count 277 (140-400) K/mcL Neutrophils # 6.5 (1.6-8.9) K/mcL BMP 08/08/18 14:20 Sodium 135 L Potassium 3.9 Chloride 102 Carbon Dioxide 23 BUN 29 H Creatinine 1.53 H Glucose 59 L Calcium 10.1 - Impressions ITS Impressions Chest X-Ray 08/08/18 15:27 IMPRESSION: No acute findings. No change. D/ / 08/08/2018 16:42:41 Trevin Feliz MD / [facility] Interpreting Provider: Trevin Feliz MD - Assessment and plan (1) Hypotension Current Visit: Yes Status: Acute Assessment and plan: Patient with blood pressure readings in the ER of 90/54 and 72/55; patient has received 1 L bolus to date. Will continue fluid resuscitation and monitor Qualifiers: Hypotension type: idiopathic hypotension Qualified Code(s): I95.0 - Idiopathic hypotension (2) Acute renal failure (ARF) Current Visit: Yes Status: Acute Assessment and plan: Patient with creatinine of 1.53 with a GFR of 49 secondary to hypotension due to hypovolemia as above. Will continue fluid resuscitation as above and monitor renal function. Qualifiers: Acute renal failure type: unspecified Qualified Code(s): N17.9 - Acute kidney failure, unspecified (3) Suicidal ideation Current Visit: No Status: Acute Assessment and plan: Patient presents from [facility] for medical clearance. Patient will be discharged back to [facility] once medically stable. (4) Diabetes Current Visit: No Status: Chronic Assessment and plan: Will continue home medications Qualifiers: Diabetes mellitus type: type 2 Diabetes mellitus oil heaterman insulin use: unspecified oil heaterman insulin use status Diabetes mellitus complication status: with unspecified complications Qualified Code(s): E11.8 - Type 2 diabetes mellitus with unspecified complications (5) History of seizures Current Visit: No Status: Chronic Assessment and plan: Continue home medication (6) Hyperlipidemia Current Visit: No Status: Chronic Assessment and plan: Continue home medication Qualifiers: Hyperlipidemia type: pure hypercholesterolemia Qualified Code(s): E78.00 - Pure hypercholesterolemia, unspecified; E78.0 - Pure hypercholesterolemia (7) DVT prophylaxis Current Visit: No Status: Acute Assessment and plan: Subcutaneous heparin - Time Spent With Patient Total time spent is greater than 50% in coordination of care (as documented) at patient's floor/unit and/or counseling patient:
[2018-08-08] MEDS ORDERED: Naloxone 0.4 MG/ML INJ IVP PRN (17:22)
--- NOTE | 2018-08-08 17:23 | Emergency Department Note ---
Disposition Clinical Impression: ROBERTO (acute kidney injury) Disposition: Admitted As Inpatient Condition: Good General Adult HPI - General Chief complaint: ED Medical Clearance Stated complaint: Medical clearance Time Seen by Provider: 08/08/18 13:42 Source: patient Limitations: no limitations - History of Present Illness Pain Scale: 6 - Related Data Home Medications Medication Instructions Recorded Confirmed RX: Atorvastatin [Lipitor] 40 mg PO HS 12/13/16 08/08/18 RX: Canagliflozin [Invokana] 100 mg PO DAILY 12/13/16 08/08/18 RX: Famotidine [Heartburn 20 mg PO BID 12/13/16 08/08/18 Prevention] RX: Fenofibrate Nanocrystallized 145 mg PO DAILY 12/13/16 08/08/18 [Tricor] RX: Gabapentin [Neurontin] 300 mg PO BID 12/13/16 08/08/18 RX: Meloxicam 15 mg PO DAILY 12/13/16 08/08/18 RX: metFORMIN [Glucophage] 1,000 mg PO BIDWM 12/13/16 08/08/18 RX: FLUoxetine HCl [Prozac] 40 mg PO DAILY 05/17/18 08/08/18 RX: Insulin Glargine,Hum.rec.anlog 20 unit SQ DAILY 05/17/18 08/08/18 [Lantus Solostar] RX: lamoTRIgine [Lamotrigine] 200 mg PO DAILY 05/17/18 08/08/18 Metoprolol [Lopressor] 25 mg PO BID 08/08/18 08/08/18 RX: Insulin ASPART [Novolog 10 unit SQ BID 08/08/18 08/08/18 Flexpen] RX: Lisinopril [Zestril] 10 mg PO DAILY 08/08/18 08/08/18 risperiDONE [Risperidone] 0.5 mg PO BID 08/08/18 08/08/18 Previous Rx's Medication Instructions Recorded RX: Quetiapine Fumarate 800 mg PO HS #14 05/10/17 [Quetiapine Fumarate ER] RX: Trazodone HCl 300 mg PO HS PRN #7 05/10/17 RX: Trihexyphenidyl [Artane] 2 mg PO HS #7 05/10/17 RX: clonazePAM [Klonopin] 1 mg PO BID PRN #14 05/10/17 RX: hydrOXYzine pamoate 50 mg PO TID PRN #20 05/10/17 [HydrOXYzine Pamoate] Allergies Allergy/AdvReac Type Severity Reaction Status Date / Time latex AdvReac Rash Verified 08/08/18 13:37 Penicillins [PCN] AdvReac Rash Verified 08/08/18 13:37 Constitutional: Denies: fever, chills Eyes: Denies: eye pain ENT ED: Denies: ear pain, throat pain Cardiovascular: Denies: chest pain, palpitations Respiratory: Denies: cough, dyspnea Gastrointestinal: Denies: abdominal pain, nausea Genitourinary: Denies: urgency, dysuria Musculoskeletal: Denies: back pain, neck pain Integumentary: Denies: rash, abrasion Neurological: Denies: headache, weakness Psychiatric: Reports: depression, suicidal thoughts. Denies: anxiety Endocrine: Denies: fatigue Hematological/Lymphatic: Denies: easy bleeding Allergic/Immunologic: Denies: facial swelling Past Medical History - Past Medical History Medical history: Reports: diabetes, hypertension, seizures Surgical history: Reports: colostomy, orthopedic, other, other Psychiatric history: Reports: bipolar, depression, previous psychiatric hospitalization - Social History Smoking Status: Never smoker Smokeless Tobacco Status: Yes Alcohol use: Reports: none Drug use: Reports: none Physical Exam - General Limitations: no limitations General appearance: alert, in no apparent distress Course Vital Signs Temperature 97.4 F L 08/08/18 13:33 Pulse Rate 87 08/08/18 13:33 Respiratory Rate 16 08/08/18 13:33 Blood Pressure 90/54 08/08/18 13:33 O2 Sat by Pulse Oximetry 94 08/08/18 13:33 Temperature 97.4 F L 08/08/18 13:33 Pulse Rate 71 08/08/18 19:06 Respiratory Rate 16 08/08/18 19:06 Blood Pressure 109/79 08/08/18 19:06 O2 Sat by Pulse Oximetry 100 08/08/18 19:06 Oxygen Delivery Oxygen Delivery Room Air Medical Decision Making - Lab Data Result diagrams: 08/08/18 14:20 08/08/18 14:20 Lab Results 08/08/18 08/08/18 08/08/18 Range/Units 14:20 14:20 14:20 WBC 16.3 H (4.3-11.1) K/mcL RBC 6.17 H (4.19-5.50) M/mcL Hgb 17.2 H (12.9-16.9) g/dL Hct 50.8 H (37.5-50.1) % MCV 82.3 L (83.0-100.0) fL MCH 27.9 L (28.0-33.3) pg MCHC 33.9 (31.6-35.5) g/dL RDW 13.7 (11.5-14.5) % Plt Count 277 (140-400) K/mcL MPV 10.3 (9.4-12.4) fL Immature Gran % 0.9 (0-4) % Seg Neutrophils % 40.1 % Lymphocytes % 43.3 % Monocytes % 7.7 % Eosinophils % 7.1 % Basophils % 0.9 % Neutrophils # 6.5 (1.6-8.9) K/mcL Lymphocytes # 7.0 H (0.6-4.6) K/mcL Monocytes # 1.3 (0.0-1.3) K/mcL Eosinophils # 1.2 H (0.0-0.6) K/mcL Basophils # 0.2 (0.0-0.2) K/mcL Sodium 135 L (136-145) mEq/L Potassium 3.9 (3.5-5.1) mEq/L Chloride 102 (98-107) mEq/L Carbon Dioxide 23 (23-29) mEq/L BUN 29 H (6-20) mg/dL Creatinine 1.53 H (0.70-1.30) mg/dL Est GFR ( Amer) 60 (> 60) Est GFR (Non-Af Amer) 49 L (> 60) BUN/Creatinine Ratio 19 (6-26) Glucose 59 L (70-105) mg/dL POC Glucose (70-99) mg/dL Est Mean Plasma Glucose 258 mg/dl Hemoglobin A1c 10.6 H ( - 5.6) % Calculated Osmolality 284 (280-300) Calcium 10.1 (8.6-10.3) mg/dL Urine Color (Yellow) Urine Clarity (Clear) Urine pH (5.0-8.0) pH Units Ur Specific [place] (1.010-1.025) Urine Protein (Neg-Trace) mg/dL Urine Glucose (UA) (Normal) mg/dL Urine Ketones (Negative) mg/dL Urine Blood (Negative) Urine Nitrite (Negative) Urine Bilirubin (Negative) Urine Urobilinogen (Normal) mg/dL Ur Leukocyte Esterase (Negative) Urine Microscopic RBC (0-3) per hpf Urine Microscopic WBC (0-3) per hpf Ur Squamous Epith Cells (None-Few) per lpf Urine Bacteria (None-Few) per hpf Hyaline Casts (None-Few) per lpf Ur Culture Indicated? (NO) Salicylates < 2.5 L (15.0-30.0) mg/dL Urine Opiates Screen (Srkmuy=652) ng/mL Acetaminophen < 10 L (10-20) mcg/mL Ur Barbiturates Screen (Cshgxc=713) ng/mL Ur Phencyclidine Scrn (Cutoff=25) ng/mL Ur Amphetamines Screen (Eqcyuy=4847) ng/mL U Benzodiazepines Scrn (Ijcubb=816) ng/mL Urine Cocaine Screen (Cutoff= 300) ng/mL U Marijuana (THC) Screen (Cutoff = 50) ng/mL Ur Drug Screen Interp Ethyl Alcohol < 10 (Less than 10) mg/dL 08/08/18 08/08/18 08/08/18 Range/Units 15:41 17:30 17:30 WBC (4.3-11.1) K/mcL RBC (4.19-5.50) M/mcL Hgb (12.9-16.9) g/dL Hct (37.5-50.1) % MCV (83.0-100.0) fL MCH (28.0-33.3) pg MCHC (31.6-35.5) g/dL RDW (11.5-14.5) % Plt Count (140-400) K/mcL MPV (9.4-12.4) fL Immature Gran % (0-4) % Seg Neutrophils % % Lymphocytes % % Monocytes % % Eosinophils % % Basophils % % Neutrophils # (1.6-8.9) K/mcL Lymphocytes # (0.6-4.6) K/mcL Monocytes # (0.0-1.3) K/mcL Eosinophils # (0.0-0.6) K/mcL Basophils # (0.0-0.2) K/mcL Sodium (136-145) mEq/L Potassium (3.5-5.1) mEq/L Chloride (98-107) mEq/L Carbon Dioxide (23-29) mEq/L BUN (6-20) mg/dL Creatinine (0.70-1.30) mg/dL Est GFR ( Amer) (> 60) Est GFR (Non-Af Amer) (> 60) BUN/Creatinine Ratio (6-26) Glucose (70-105) mg/dL POC Glucose 130 H (70-99) mg/dL Est Mean Plasma Glucose mg/dl Hemoglobin A1c ( - 5.6) % Calculated Osmolality (280-300) Calcium (8.6-10.3) mg/dL Urine Color Yellow (Yellow) Urine Clarity Clear (Clear) Urine pH 6.0 (5.0-8.0) pH Units Ur Specific [place] > 1.030 H (1.010-1.025) Urine Protein Trace (Neg-Trace) mg/dL Urine Glucose (UA) >=1000 H (Normal) mg/dL Urine Ketones Negative (Negative) mg/dL Urine Blood Negative (Negative) Urine Nitrite Negative (Negative) Urine Bilirubin Negative (Negative) Urine Urobilinogen Normal (Normal) mg/dL Ur Leukocyte Esterase Negative (Negative) Urine Microscopic RBC 0-3 (0-3) per hpf Urine Microscopic WBC 0-3 (0-3) per hpf Ur Squamous Epith Cells Many H (None-Few) per lpf Urine Bacteria None Seen (None-Few) per hpf Hyaline Casts None Seen (None-Few) per lpf Ur Culture Indicated? NO (NO) Salicylates (15.0-30.0) mg/dL Urine Opiates Screen Negative (Lazoyc=257) ng/mL Acetaminophen (10-20) mcg/mL Ur Barbiturates Screen Negative (Nanvmw=191) ng/mL Ur Phencyclidine Scrn Negative (Cutoff=25) ng/mL Ur Amphetamines Screen Negative (Uotprd=3183) ng/mL U Benzodiazepines Scrn Negative (Lojicn=578) ng/mL Urine Cocaine Screen Negative (Cutoff= 300) ng/mL U Marijuana (THC) Screen Negative (Cutoff = 50) ng/mL Ur Drug Screen Interp See Below Ethyl Alcohol (Less than 10) mg/dL Attestation Statement - Attestation Attestation: I examined this patient and my medical decision making was reviewed with the [facility]. I agree with the documented findings, disposition and treatment plan as described except to the extent set forth below. We independently had [id number] contact with the patient. Patient with a history of diabetes. Here today for evaluation of SI. Patient was going to be placed at mental health facility pending medical clearance. Patient's blood work showed acute kidney injury. The patient has had borderline blood pressures. He will require further IV hydration, evaluation, management. Awake alert and oriented 3, no acute distress, lungs clear to auscultation bilaterally, regular rate and rhythm, abdomen soft nontender to palpation with no CVA tenderness. Complains of generalized weakness and fatigue without specific etiology or source. No IV drug use. Patient has had blood pressure readings as low as 70 systolic. He is currently getting fluids. A second IV was inserted and the patient has now received 2 L of fluid with a systolic blood pressure of 106. Patient is stable for the floor. Patient admitted by the [facility]. Please see their note for further details and disposition.
[2018-08-08] MEDS ORDERED: clonazePAM 1 MG TABLET PO PRN (17:26)
[2018-08-08] MEDS ORDERED: traZODone 50 MG TABLET PO PRN (17:26)
[2018-08-08] MEDS ORDERED: hydrOXYzine pamoate 25 MG CAPSULE PO PRN (17:26)
[2018-08-08 17:34] LABS: Estimated Average Glucose 258 mg/dl; Hemoglobin A1C 10.6 %
[2018-08-08 17:52] LABS: Bilirubin,Urine Negative (Negative); Blood,Urine Negative (Negative); Clarity,Urine Clear (Clear); Color,Urine Yellow (Yellow); Glucose,Urine (UA) >=1000 mg/dL (Normal); Ketones,Urine Negative (Negative); Leukocyte Esterase,Urine Negative (Negative); Nitrite,Urine Negative (Negative); Protein,Urine Trace mg/dL (Neg-Trace); Specific Gravity,Urine > 1.030 (1.010-1.025); Urobilinogen,Urine Normal (Normal)
[2018-08-08 17:55] LABS: Bacteria,Urine None Seen per hpf (None-Few); Hyaline Casts,Urine None Seen per lpf (None-Few); RBC,Urine 0-3 per hpf (0-3); Squamous Epithelial Cell,Urine Many per lpf (None-Few); WBC,Urine 0-3 per hpf (0-3)
[2018-08-08 18:02] LABS: Amphetamine Screen,Urine Negative ng/mL (Cutoff=1000); Barbiturate Screen,Urine Negative ng/mL (Cutoff=200); Benzodiazepines Screen,Urine Negative ng/mL (Cutoff=200); Cannabinoid Screen,Urine Negative ng/mL (Cutoff = 50); Cocaine Screen,Urine Negative ng/mL (Cutoff= 300); Opiate Screen,Urine Negative ng/mL (Cutoff=300); Phencyclidine Screen,Urine Negative ng/mL (Cutoff=25)
[2018-08-08] MEDS: *HR* Heparin 5,000 UNIT/ML VIAL SQ SCH (19:04)
[2018-08-08] MEDS: Gabapentin 300 MG CAPSULE PO SCH (20:56)
[2018-08-08] MEDS: Ringers Solution, Lactated 1,000 ML IVC SCH (20:56)
[2018-08-08] MEDS: Famotidine 20 MG TABLET PO SCH (20:57)
[2018-08-08] MEDS: Insulin LISPRO 300 UNITS/3 ML VIAL SQ SCH (20:57)
[2018-08-08] MEDS: risperiDONE 0.25 MG TABLET PO SCH (20:57)
[2018-08-09 05:13] LABS: Alanine Aminotransferase 26 Units/L (7-52); Albumin 3.5 g/dL (3.5-5.7); Albumin/Globulin Ratio 1.9 (1.1-2.2); Alkaline Phosphatase 45 Units/L (34-104); Aspartate Amino Transferase 22 Units/L (13-39); BUN/Creatinine Ratio 20 (6-26); Bilirubin,Total 0.6 mg/dL (0.3-1.0); Blood Urea Nitrogen 25 mg/dL (6-20); Calcium 8.7 mg/dL (8.6-10.3); Carbon Dioxide 24 mEq/L (23-29); Chloride 108 mEq/L (98-107); Globulin 1.8 g/dL (2.4-3.5); Glucose 219 mg/dL (70-105); Osmolality,Calculated 297 (280-300); Potassium 4.2 mEq/L (3.5-5.1); Sodium 138 mEq/L (136-145); Total Protein 5.3 g/dL (6.4-8.9); eGFR For Non-African Americans > 60 (> 60)
[2018-08-09] MEDS: Ringers Solution, Lactated 1,000 ML IVC SCH (05:49)
[2018-08-09] MEDS: *HR* Heparin 5,000 UNIT/ML VIAL SQ SCH (05:52)
[2018-08-09] MEDS ORDERED: *HR* Metformin 500 MG TABLET PO SCH (08:00)
[2018-08-09] MEDS ORDERED: (Canagliflozin [Invokana] 100 MG) PO SCH (09:00)
[2018-08-09] MEDS ORDERED: Fenofibrate 54 MG TABLET PO SCH (09:00)
[2018-08-09] MEDS ORDERED: Insulin DETEMIR 100 UNIT/ML X5UNITS SQ SCH (09:00)
[2018-08-09] MEDS ORDERED: lamoTRIgine 100 MG TABLET PO SCH (09:00)
[2018-08-09] MEDS ORDERED: FLUoxetine 20 MG CAPSULE PO SCH (09:00)
[2018-08-09] MEDS ORDERED: Nicotine 21 MG PATCH.TD24 TD SCH (09:45)
[2018-08-09] MEDS: Gabapentin 300 MG CAPSULE PO SCH (10:01)
[2018-08-09] MEDS: risperiDONE 0.25 MG TABLET PO SCH (10:02)
[2018-08-09] MEDS: Famotidine 20 MG TABLET PO SCH (10:02)
[2018-08-09 10:18] VITALS: BP 111/72
[2018-08-09] MEDS: Insulin LISPRO 300 UNITS/3 ML VIAL SQ SCH (10:22)
--- NOTE | 2018-08-09 11:04 | Discharge Summary ---
Orders not resulted at time of discharge: Pending orders 08/08/18 21:16 Culture,Blood [BC] Stat Date of Encounter: 08/09/18 Time of Encounter: 11:00 - Discharge Diagnosis (1) Hypotension Priority: Primary Status: Acute Qualifiers: Hypotension type: idiopathic hypotension Qualified Code(s): I95.0 - Idiopathic hypotension (2) Acute renal failure (ARF) Priority: Primary Status: Acute Qualifiers: Acute renal failure type: unspecified Qualified Code(s): N17.9 - Acute kidney failure, unspecified (3) Suicidal ideation Priority: Secondary Status: Acute (4) Diabetes Priority: Secondary Status: Chronic Qualifiers: Diabetes mellitus type: type 2 Diabetes mellitus long chain beamer insulin use: unspecified long chain beamer insulin use status Diabetes mellitus complication status: with unspecified complications Qualified Code(s): E11.8 - Type 2 diabetes mellitus with unspecified complications (5) History of seizures Priority: Secondary Status: Chronic (6) Hyperlipidemia Priority: Secondary Status: Chronic Qualifiers: Hyperlipidemia type: pure hypercholesterolemia Qualified Code(s): E78.00 - Pure hypercholesterolemia, unspecified; E78.0 - Pure hypercholesterolemia Hospital course: Patient is a 43-year-old male with past medical history significant for diabetes, hyperlipidemia, mood disorder and prior psychiatric inpatient stays who presents from [facility] for medical clearance. Patient is a very poor historian but reports of going to from [facility] due to suicidal ideations. While there at the Center patient was sent here for medical clearance due to acute renal failure. In the ER, patient was found to be hemoconcentrated and in acute renal failure in addition to hypotension secondary to dehydration. Patient has been given a total of 1 L bolus in the ER and will be admitted to the medical surgical floor for management of acute renal failure secondary to hypovolemia due to dehydration. During patient's hospital stay his acute renal failure resolved and hypotension resolved with fluid resuscitation. Patient now medically stable to be discharged to [facility]. - Time Spent with Patient Total time spent providing and/or coordinating discharge services: Less than 30 minutes - Discharge Medications Home Medications: Atorvastatin [Lipitor] 40 mg PO HS 12/13/16 [History] Canagliflozin [Invokana] 100 mg PO DAILY 12/13/16 [History] Famotidine [Heartburn Prevention] 20 mg PO BID 12/13/16 [History] Fenofibrate Nanocrystallized [Tricor] 145 mg PO DAILY 12/13/16 [History] Gabapentin [Neurontin] 300 mg PO BID 12/13/16 [History] Meloxicam 15 mg PO DAILY 12/13/16 [History] metFORMIN [Glucophage] 1,000 mg PO BIDWM 12/13/16 [History] Quetiapine Fumarate [Quetiapine Fumarate ER] 800 mg PO HS #14 05/10/17 [Rx] Trazodone HCl 300 mg PO HS PRN #7 05/10/17 [Rx] Trihexyphenidyl [Artane] 2 mg PO HS #7 05/10/17 [Rx] clonazePAM [Klonopin] 1 mg PO BID PRN #14 05/10/17 [Rx] hydrOXYzine pamoate [HydrOXYzine Pamoate] 50 mg PO TID PRN #20 05/10/17 [Rx] FLUoxetine HCl [Prozac] 40 mg PO DAILY 05/17/18 [History] Insulin Glargine,Hum.rec.anlog [Lantus Solostar] 20 unit SQ DAILY 05/17/18 [History] lamoTRIgine [Lamotrigine] 200 mg PO DAILY 05/17/18 [History] Insulin ASPART [Novolog Flexpen] 10 unit SQ BID 08/08/18 [History] Lisinopril [Zestril] 10 mg PO DAILY 08/08/18 [History] Metoprolol [Lopressor] 25 mg PO BID 08/08/18 [History] risperiDONE [Risperidone] 0.5 mg PO BID 08/08/18 [History] Allergies/Adverse Reactions: Allergy/AdvReac Type Severity Reaction Status Date / Time latex AdvReac Rash Verified 08/08/18 13:37 Penicillins [PCN] AdvReac Rash Verified 08/08/18 13:37 Date of admission: 08/08/18 19:10 Primary care physician: PCP NONE - Constitutional Vitals: Temp Pulse Resp BP Pulse Ox 98.3 F 86 17 111/72 95 08/09/18 10:30 08/09/18 10:30 08/09/18 10:30 08/09/18 10:30 08/09/18 10:30 General appearance: Present: A&O X 3 Exam: As above - Patient Status Disposition: Transfer Psychiatric Hosp Condition: Good - Discharge Instructions Follow Up With: Michael Muñoz MD [Non-Partnered Physician] - (patient does not need a PCP appointment due to him going back to [facility])
--- NOTE | 2018-08-09 11:05 | Physician Discharge Referral ---
ExtendedCare Referral Info Transfer To: [facility] Provider in Charge after Transfer: Other ([facility]) - Diagnosis (1) Hypotension Status: Acute (2) Acute renal failure (ARF) Status: Acute (3) Suicidal ideation Status: Acute (4) Diabetes Status: Chronic (5) History of seizures Status: Chronic (6) Hyperlipidemia Status: Chronic (7) DVT prophylaxis Status: Acute - Transfer Medications Home Medications: Atorvastatin [Lipitor] 40 mg PO HS 12/13/16 [History] Canagliflozin [Invokana] 100 mg PO DAILY 12/13/16 [History] Famotidine [Heartburn Prevention] 20 mg PO BID 12/13/16 [History] Fenofibrate Nanocrystallized [Tricor] 145 mg PO DAILY 12/13/16 [History] Gabapentin [Neurontin] 300 mg PO BID 12/13/16 [History] Meloxicam 15 mg PO DAILY 12/13/16 [History] metFORMIN [Glucophage] 1,000 mg PO BIDWM 12/13/16 [History] Quetiapine Fumarate [Quetiapine Fumarate ER] 800 mg PO HS #14 05/10/17 [Rx] Trazodone HCl 300 mg PO HS PRN #7 05/10/17 [Rx] Trihexyphenidyl [Artane] 2 mg PO HS #7 05/10/17 [Rx] clonazePAM [Klonopin] 1 mg PO BID PRN #14 05/10/17 [Rx] hydrOXYzine pamoate [HydrOXYzine Pamoate] 50 mg PO TID PRN #20 05/10/17 [Rx] FLUoxetine HCl [Prozac] 40 mg PO DAILY 05/17/18 [History] Insulin Glargine,Hum.rec.anlog [Lantus Solostar] 20 unit SQ DAILY 05/17/18 [History] lamoTRIgine [Lamotrigine] 200 mg PO DAILY 05/17/18 [History] Insulin ASPART [Novolog Flexpen] 10 unit SQ BID 08/08/18 [History] Lisinopril [Zestril] 10 mg PO DAILY 08/08/18 [History] Metoprolol [Lopressor] 25 mg PO BID 08/08/18 [History] risperiDONE [Risperidone] 0.5 mg PO BID 08/08/18 [History] Allergies/Adverse Reactions: Allergy/AdvReac Type Severity Reaction Status Date / Time latex AdvReac Rash Verified 08/08/18 13:37 Penicillins [PCN] AdvReac Rash Verified 08/08/18 13:37 - Respiratory Orders Smoking Cessation: Smoking cessation has been advised. For more information, call the [place] Tobacco Quit Line at 9-380-XNAC-NOW. CERTIFICATION: I certify that the transfer of the above named patient to an Extended Care Facility is necessary for the continuing treatment of the diagnosis listed. The above information is true and accurate reflection of patient's current condition. Confidential - Redisclosure prohibited without a patient's written consent.
== END 2018-08-09 11:51 ==
LOC: 2NNU 13:27 → EMEROOARM 13:27 → SUATTDRO 19:10 → 2NNU 20:12
PROVIDERS: ADMIT Internal Medicine Nephrology; ATTEND Hospitalist

== ENCOUNTER 2019-05-14 12:27 | Inpatient (IN) ==
[2019-05-14] MEDS ORDERED: chlorproMAZINE 25 MG in 0.9 % Sodium Chloride 100 ML IVPB ONE (12:55)
[2019-05-14] MEDS ORDERED: ChlorproMAZINE 25 MG/ML AMPUL IM ONE (13:15)
[2019-05-14 13:25] LABS: Basophils # 0.1 K/mcL (0.0-0.2); Basophils % 0.6 %; Hemoglobin 15.4 g/dL (12.9-16.9); Immature Granulocytes % 2.1 % (0-4); Lymphocytes # 1.3 K/mcL (0.6-4.6); Lymphocytes % 11.1 %; Mean Corpuscular HGB Conc 32.8 g/dL (31.6-35.5); Mean Corpuscular Hemoglobin 29.9 pg (28.0-33.3); Mean Corpuscular Volume 91.3 fL (83.0-100.0); Mean Platelet Volume 9.7 fL (9.4-12.4); Monocytes # 0.8 K/mcL (0.0-1.3); Neutrophils # 9.3 K/mcL (1.6-8.9); Platelet Count 247 K/mcL (140-400); Red Blood Count 5.15 M/mcL (4.19-5.50); Red Cell Distribution Width 14.6 % (11.5-14.5); Segmented Neutrophils % 79.2 %; White Blood Count 11.8 K/mcL (4.3-11.1)
[2019-05-14 15:40] LABS: BUN/Creatinine Ratio 30 (6-26); Blood Urea Nitrogen 54 mg/dL (6-20); Carbon Dioxide 10 mEq/L (23-29); Chloride 95 mEq/L (98-107); Glucose 363 mg/dL (70-105); Osmolality,Calculated 299 (280-300); Potassium 5.8 mEq/L (3.5-5.1); Sodium 130 mEq/L (136-145); eGFR For African Americans 49 (> 60); eGFR For Non-African Americans 41 (> 60)
[2019-05-14 15:41] LABS: Alanine Aminotransferase 2663 Units/L (7-52); Albumin 3.6 g/dL (3.5-5.7); Albumin/Globulin Ratio 1.5 (1.1-2.2); Alkaline Phosphatase 126 Units/L (34-104); Aspartate Amino Transferase 1282 Units/L (13-39); Bilirubin,Total 2.3 mg/dL (0.3-1.0); Calcium 8.9 mg/dL (8.6-10.3); Globulin 2.4 g/dL (2.4-3.5); Troponin I < 0.03 ng/mL (< 0.04)
[2019-05-14] MEDS ORDERED: 0.9 % Sodium Chloride 1,000 ML IVC ONE ×2 (15:42→17:22)
[2019-05-14] MEDS ORDERED: *HR* Dextrose 50 % in Water (Syg) 50 ML SYRINGE IVP PRN (15:45)
[2019-05-14] MEDS ORDERED: Insulin Regular, Human 100 UNIT/ML IV PRN (15:45)
[2019-05-14] MEDS ORDERED: Isovue-370 500 ML BOTTLE IVP ONE (15:55)
[2019-05-14 16:38] LABS: VBG HCO3 11 mEq/L (21-27); VBG PCO2 27 mmHg (41-51); VBG PO2 63 mmHg (25-50)
[2019-05-14] MEDS: Insulin Human Regular 100 UNIT in 0.9 % Sodium Chloride 100 ML IVC SCH (17:24)
[2019-05-14 17:40] LABS: INR 1.5; Prothrombin Time 16.7 Seconds (9.4-12.1)
[2019-05-14 17:43] LABS: Activated Partial Thrombo Time 35.1 Seconds (26.0-36.0)
[2019-05-14 17:53] LABS: Lipase 178 Units/L (11-82)
[2019-05-14 18:07] LABS: Hepatitis B Surface Antigen Nonreactive (Nonreactive)
[2019-05-14 18:36] LABS: Hepatitis B Core IgM Nonreactive (Nonreactive); Hepatitis C Virus Antibody Nonreactive (Nonreactive)
[2019-05-14 18:37] LABS: Hepatitis A Antibody IgM Nonreactive (Nonreactive)
[2019-05-14 19:00] LABS: Bilirubin,Urine Negative (Negative); Blood,Urine Negative (Negative); Clarity,Urine Clear (Clear); Color,Urine Yellow (Yellow); Glucose,Urine (UA) >=1000 mg/dL (Normal); Ketones,Urine 40 mg/dL (Negative); Leukocyte Esterase,Urine Negative (Negative); Nitrite,Urine Negative (Negative); Protein,Urine Negative (Neg-Trace); Specific Gravity,Urine > 1.030 (1.010-1.025); Urobilinogen,Urine Normal (Normal)
[2019-05-14 20:38] LABS: VBG HCO3 12 mEq/L (21-27); VBG PCO2 30 mmHg (41-51); VBG PH 7.21 pH Units (7.32-7.42); VBG PO2 70 mmHg (25-50)
[2019-05-14 21:13] LABS: Acetaminophen < 10 mcg/mL (10-20); Alanine Aminotransferase 2250 Units/L (7-52); Albumin 3.5 g/dL (3.5-5.7); Albumin/Globulin Ratio 1.7 (1.1-2.2); Alkaline Phosphatase 101 Units/L (34-104); Aspartate Amino Transferase 865 Units/L (13-39); BUN/Creatinine Ratio 34 (6-26); Bilirubin,Direct 0.6 mg/dL (0.0-0.2); Bilirubin,Indirect 1.3 mg/dL (0.0-1.2); Bilirubin,Total 1.9 mg/dL (0.3-1.0); Blood Urea Nitrogen 50 mg/dL (6-20); Calcium 8.1 mg/dL (8.6-10.3); Carbon Dioxide 13 mEq/L (23-29); Chloride 106 mEq/L (98-107); Globulin 2.1 g/dL (2.4-3.5); Glucose 140 mg/dL (70-105); Magnesium 2.8 mg/dL (1.6-2.6); Osmolality,Calculated 292 (280-300); Potassium 4.6 mEq/L (3.5-5.1); Sodium 133 mEq/L (136-145); Total Protein 5.6 g/dL (6.4-8.9); eGFR For African Americans > 60 (> 60); eGFR For Non-African Americans 52 (> 60)
[2019-05-14] MEDS: D5% in 0.45% NACL w KCl 20 MEQ/1,000 ML MLS IVC SCH (23:40)
[2019-05-15] MEDS ORDERED: Insulin Regular, Human 100 UNIT/ML IV PRN (00:31)
[2019-05-15] MEDS ORDERED: *HR* Dextrose 50 % in Water (Syg) 50 ML SYRINGE IVP PRN ×2 (00:31→11:45)
[2019-05-15] MEDS ORDERED: Naloxone 0.4 MG/ML INJ IVP PRN (00:35)
[2019-05-15] MEDS: Insulin Human Regular 100 UNIT in 0.9 % Sodium Chloride 100 ML IVC SCH (01:15)
[2019-05-15 01:22] LABS: Basophils # 0.1 K/mcL (0.0-0.2); Basophils % 0.6 %; Eosinophils # 0.1 K/mcL (0.0-0.6); Eosinophils % 0.5 %; Hematocrit 44.2 % (37.5-50.1); Hemoglobin 15.2 g/dL (12.9-16.9); Immature Granulocytes % 1.4 % (0-4); Lymphocytes # 1.7 K/mcL (0.6-4.6); Lymphocytes % 16.5 %; Mean Corpuscular HGB Conc 34.4 g/dL (31.6-35.5); Mean Corpuscular Volume 87.4 fL (83.0-100.0); Mean Platelet Volume 9.2 fL (9.4-12.4); Monocytes % 10.2 %; Neutrophils # 7.1 K/mcL (1.6-8.9); Platelet Count 270 K/mcL (140-400); Red Blood Count 5.06 M/mcL (4.19-5.50); Red Cell Distribution Width 14.4 % (11.5-14.5); Segmented Neutrophils % 70.8 %
[2019-05-15 02:15] LABS: Alanine Aminotransferase 2223 Units/L (7-52); Albumin 3.6 g/dL (3.5-5.7); Albumin/Globulin Ratio 1.6 (1.1-2.2); Alkaline Phosphatase 104 Units/L (34-104); Aspartate Amino Transferase 765 Units/L (13-39); BUN/Creatinine Ratio 36 (6-26); Bilirubin,Total 2.3 mg/dL (0.3-1.0); Blood Urea Nitrogen 46 mg/dL (6-20); Calcium 8.5 mg/dL (8.6-10.3); Carbon Dioxide 19 mEq/L (23-29); Chloride 108 mEq/L (98-107); Globulin 2.2 g/dL (2.4-3.5); Glucose 88 mg/dL (70-105); Magnesium 2.7 mg/dL (1.6-2.6); Osmolality,Calculated 295 (280-300); Phosphorous 1.2 mg/dL (2.7-4.5); Potassium 3.8 mEq/L (3.5-5.1); Sodium 137 mEq/L (136-145); Total Protein 5.8 g/dL (6.4-8.9); eGFR For African Americans > 60 (> 60); eGFR For Non-African Americans > 60 (> 60)
[2019-05-15] MEDS: D5% in 0.45% NACL w KCl 20 MEQ/1,000 ML MLS IVC SCH ×2 (04:12→08:16)
[2019-05-15 08:58] LABS: Basophils % 0.5 %; Eosinophils # 0.1 K/mcL (0.0-0.6); Eosinophils % 1.1 %; Hematocrit 43.1 % (37.5-50.1); Lymphocytes # 1.3 K/mcL (0.6-4.6); Mean Corpuscular HGB Conc 34.8 g/dL (31.6-35.5); Mean Corpuscular Hemoglobin 30.5 pg (28.0-33.3); Mean Corpuscular Volume 87.6 fL (83.0-100.0); Mean Platelet Volume 9.3 fL (9.4-12.4); Monocytes # 0.7 K/mcL (0.0-1.3); Monocytes % 9.3 %; Neutrophils # 5.7 K/mcL (1.6-8.9); Platelet Count 240 K/mcL (140-400); Red Blood Count 4.92 M/mcL (4.19-5.50); Red Cell Distribution Width 14.1 % (11.5-14.5); Segmented Neutrophils % 72.1 %
[2019-05-15 11:06] LABS: INR 1.4; Prothrombin Time 15.9 Seconds (9.4-12.1)
[2019-05-15 11:08] LABS: VBG HCO3 22 mEq/L (21-27); VBG PCO2 45 mmHg (41-51); VBG PH 7.29 pH Units (7.32-7.42); VBG PO2 37 mmHg (25-50)
[2019-05-15 11:16] LABS: BUN/Creatinine Ratio 29 (6-26); Blood Urea Nitrogen 32 mg/dL (6-20); Calcium 8.3 mg/dL (8.6-10.3); Carbon Dioxide 23 mEq/L (23-29); Chloride 109 mEq/L (98-107); Glucose 155 mg/dL (70-105); Osmolality,Calculated 292 (280-300); Potassium 4.2 mEq/L (3.5-5.1); Sodium 136 mEq/L (136-145); eGFR For African Americans > 60 (> 60); eGFR For Non-African Americans > 60 (> 60)
[2019-05-15 11:31] LABS: Albumin 3.4 g/dL (3.5-5.7); Albumin/Globulin Ratio 1.7 (1.1-2.2); Bilirubin,Direct 1.3 mg/dL (0.0-0.2); Bilirubin,Total 2.3 mg/dL (0.3-1.0); Total Protein 5.4 g/dL (6.4-8.9)
[2019-05-15] MEDS ORDERED: D5% in Water 1,000 ML IVC PRN (11:45)
[2019-05-15] MEDS ORDERED: Dextrose Gel 15 GM/37.5 ML TUBE PO PRN ×2 (11:45)
[2019-05-15] MEDS: Insulin DETEMIR 100 UNIT/ML X5UNITS SQ SCH (12:36)
[2019-05-15] MEDS: Insulin LISPRO 300 UNITS/3 ML VIAL SQ SCH (16:51)
[2019-05-15 17:29] LABS: Basophils # 0.1 K/mcL (0.0-0.2); Basophils % 0.7 %; Eosinophils # 0.2 K/mcL (0.0-0.6); Eosinophils % 2.7 %; Hematocrit 42.1 % (37.5-50.1); Hemoglobin 14.8 g/dL (12.9-16.9); Immature Granulocytes % 1.3 % (0-4); Lymphocytes # 1.1 K/mcL (0.6-4.6); Lymphocytes % 16.1 %; Mean Corpuscular HGB Conc 35.2 g/dL (31.6-35.5); Mean Corpuscular Hemoglobin 30.3 pg (28.0-33.3); Mean Corpuscular Volume 86.3 fL (83.0-100.0); Mean Platelet Volume 9.4 fL (9.4-12.4); Monocytes # 0.6 K/mcL (0.0-1.3); Monocytes % 8.7 %; Neutrophils # 4.9 K/mcL (1.6-8.9); Platelet Count 243 K/mcL (140-400); Red Blood Count 4.88 M/mcL (4.19-5.50); Segmented Neutrophils % 70.5 %
[2019-05-15] MEDS: lamoTRIgine 100 MG TABLET PO SCH (18:00)
[2019-05-15] MEDS: QUEtiapine Fumarate 100 MG TABLET PO SCH (20:16)
[2019-05-15] MEDS ORDERED: Insulin LISPRO 300 UNITS/3 ML VIAL SQ SCH (21:00)
[2019-05-16] MEDS: *HR* Enoxaparin 40 MG/0.4 ML SYRINGE SQ SCH (05:24)
[2019-05-16 05:45] LABS: Hematocrit 44.8 % (37.5-50.1); Hemoglobin 15.7 g/dL (12.9-16.9); Mean Corpuscular Hemoglobin 30.5 pg (28.0-33.3); Mean Corpuscular Volume 87.2 fL (83.0-100.0); Mean Platelet Volume 9.7 fL (9.4-12.4); Platelet Count 232 K/mcL (140-400); Red Blood Count 5.14 M/mcL (4.19-5.50); Red Cell Distribution Width 13.9 % (11.5-14.5); White Blood Count 6.9 K/mcL (4.3-11.1)
[2019-05-16 05:49] LABS: INR 1.4; Prothrombin Time 15.4 Seconds (9.4-12.1)
[2019-05-16 06:25] LABS: Alanine Aminotransferase 1348 Units/L (7-52); Albumin 3.5 g/dL (3.5-5.7); Albumin/Globulin Ratio 1.5 (1.1-2.2); Alkaline Phosphatase 123 Units/L (34-104); Aspartate Amino Transferase 225 Units/L (13-39); BUN/Creatinine Ratio 24 (6-26); Bilirubin,Direct 1.7 mg/dL (0.0-0.2); Bilirubin,Indirect 1.6 mg/dL (0.0-1.2); Bilirubin,Total 3.3 mg/dL (0.3-1.0); Blood Urea Nitrogen 21 mg/dL (6-20); Calcium 9.1 mg/dL (8.6-10.3); Carbon Dioxide 17 mEq/L (23-29); Chloride 102 mEq/L (98-107); Globulin 2.3 g/dL (2.4-3.5); Glucose 178 mg/dL (70-105); Magnesium 2.2 mg/dL (1.6-2.6); Osmolality,Calculated 289 (280-300); Phosphorous 2.7 mg/dL (2.7-4.5); Potassium 4.6 mEq/L (3.5-5.1); Sodium 136 mEq/L (136-145); Total Protein 5.8 g/dL (6.4-8.9); eGFR For African Americans > 60 (> 60); eGFR For Non-African Americans > 60 (> 60)
[2019-05-16] MEDS: Insulin LISPRO 300 UNITS/3 ML VIAL SQ SCH ×4 (08:25→20:01)
[2019-05-16] MEDS: lamoTRIgine 100 MG TABLET PO SCH (08:25)
[2019-05-16] MEDS: Insulin DETEMIR 100 UNIT/ML X5UNITS SQ SCH (08:25)
[2019-05-16] MEDS ORDERED: Insulin Regular, Human 100 UNIT/ML IV PRN ×2 (09:03)
[2019-05-16] MEDS ORDERED: D5% in 0.45% NACL w KCl 20 MEQ/1,000 ML MLS IVC PRN (09:03)
[2019-05-16] MEDS ORDERED: *HR* Dextrose 50 % in Water (Syg) 50 ML SYRINGE IVP PRN (09:03)
[2019-05-16] MEDS ORDERED: Insulin Human Regular 100 UNIT in 0.9 % Sodium Chloride 100 ML IVC SCH ×2 (09:15→14:00)
[2019-05-16 09:59] LABS: BUN/Creatinine Ratio 22 (6-26); Blood Urea Nitrogen 22 mg/dL (6-20); Carbon Dioxide 14 mEq/L (23-29); Chloride 100 mEq/L (98-107); Glucose 215 mg/dL (70-105); Osmolality,Calculated 286 (280-300); Potassium 4.7 mEq/L (3.5-5.1); Sodium 133 mEq/L (136-145); eGFR For African Americans > 60 (> 60); eGFR For Non-African Americans > 60 (> 60)
[2019-05-16] MEDS: 0.45 % Sodium Chloride w/KCl 20 MEQ/1,000 ML MLS IVC SCH ×2 (11:51→13:13)
[2019-05-16] MEDS: Ondansetron 4 MG/2 ML VIAL IVP PRN ×2 (13:00→20:01)
[2019-05-16] MEDS: Nicotine 2 MG GUM BC PRN ×2 (13:01→15:49)
[2019-05-16 15:10] LABS: BUN/Creatinine Ratio 22 (6-26); Blood Urea Nitrogen 20 mg/dL (6-20); Calcium 8.9 mg/dL (8.6-10.3); Carbon Dioxide 21 mEq/L (23-29); Chloride 103 mEq/L (98-107); Glucose 98 mg/dL (70-105); Osmolality,Calculated 279 (280-300); Potassium 4.3 mEq/L (3.5-5.1); Sodium 133 mEq/L (136-145); eGFR For African Americans > 60 (> 60); eGFR For Non-African Americans > 60 (> 60)
[2019-05-16] MEDS: Nystatin POWDER 30 GM BOTTLE TP SCH ×2 (15:50→20:09)
[2019-05-16] MEDS: QUEtiapine Fumarate 100 MG TABLET PO SCH (20:00)
[2019-05-17 04:29] LABS: Basophils # 0.1 K/mcL (0.0-0.2); Basophils % 0.8 %; Eosinophils # 0.2 K/mcL (0.0-0.6); Eosinophils % 3.1 %; Hemoglobin 16.5 g/dL (12.9-16.9); Immature Granulocytes % 1.1 % (0-4); Lymphocytes # 1.9 K/mcL (0.6-4.6); Lymphocytes % 30.6 %; Mean Corpuscular HGB Conc 35.1 g/dL (31.6-35.5); Mean Corpuscular Hemoglobin 30.6 pg (28.0-33.3); Mean Corpuscular Volume 87.2 fL (83.0-100.0); Mean Platelet Volume 9.3 fL (9.4-12.4); Monocytes # 1.1 K/mcL (0.0-1.3); Monocytes % 17.6 %; Neutrophils # 2.9 K/mcL (1.6-8.9); Platelet Count 223 K/mcL (140-400); Red Blood Count 5.39 M/mcL (4.19-5.50); Segmented Neutrophils % 46.8 %; White Blood Count 6.1 K/mcL (4.3-11.1)
[2019-05-17 04:48] LABS: BUN/Creatinine Ratio 19 (6-26); Blood Urea Nitrogen 18 mg/dL (6-20); Calcium 9.3 mg/dL (8.6-10.3); Carbon Dioxide 19 mEq/L (23-29); Chloride 103 mEq/L (98-107); Glucose 207 mg/dL (70-105); Magnesium 2.1 mg/dL (1.6-2.6); Osmolality,Calculated 286 (280-300); Phosphorous 2.8 mg/dL (2.7-4.5); Potassium 4.6 mEq/L (3.5-5.1); Sodium 134 mEq/L (136-145); eGFR For African Americans > 60 (> 60); eGFR For Non-African Americans > 60 (> 60)
[2019-05-17] MEDS: *HR* Enoxaparin 40 MG/0.4 ML SYRINGE SQ SCH (05:29)
[2019-05-17] MEDS: Insulin LISPRO 300 UNITS/3 ML VIAL SQ SCH ×4 (07:35→20:46)
[2019-05-17] MEDS: Nystatin POWDER 30 GM BOTTLE TP SCH ×2 (07:35→20:47)
[2019-05-17] MEDS: lamoTRIgine 100 MG TABLET PO SCH (07:36)
[2019-05-17] MEDS ORDERED: Sodium Bicarbonate 50 MEQ/50 ML VIAL IVP ONE (07:45)
[2019-05-17 08:55] LABS: Alanine Aminotransferase 946 Units/L (7-52); Albumin 3.7 g/dL (3.5-5.7); Albumin/Globulin Ratio 1.6 (1.1-2.2); Alkaline Phosphatase 123 Units/L (34-104); Aspartate Amino Transferase 108 Units/L (13-39); Bilirubin,Direct 1.8 mg/dL (0.0-0.2); Bilirubin,Indirect 1.6 mg/dL (0.0-1.2); Bilirubin,Total 3.4 mg/dL (0.3-1.0); Globulin 2.3 g/dL (2.4-3.5)
[2019-05-17] MEDS ORDERED: NON-FORMULARY MEDICATION 1 EACH EACH (Insulin Glargine,Hum.Rec.Anlog [Basaglar Kwikpen U-1 SQ SCH (09:00)
[2019-05-17 09:32] LABS: Estimated Average Glucose 243 mg/dl
[2019-05-17] MEDS: Insulin DETEMIR 100 UNIT/ML X5UNITS SQ SCH (09:38)
[2019-05-17] MEDS: Nicotine 2 MG GUM BC PRN ×3 (09:41→20:45)
[2019-05-17] MEDS: Ondansetron 4 MG/2 ML VIAL IVP PRN (09:41)
[2019-05-17] MEDS: Sodium Bicarbonate 100 MEQ in 0.45 % Sodium Chloride 1,000 ML IVC SCH ×2 (12:05→20:45)
[2019-05-17] MEDS: QUEtiapine Fumarate 100 MG TABLET PO SCH (20:44)
[2019-05-18] MEDS: Sodium Bicarbonate 100 MEQ in 0.45 % Sodium Chloride 1,000 ML IVC SCH ×2 (02:14→10:28)
[2019-05-18 02:46] LABS: Basophils % 0.6 %; Eosinophils # 0.2 K/mcL (0.0-0.6); Eosinophils % 2.5 %; Hematocrit 42.6 % (37.5-50.1); Hemoglobin 15.1 g/dL (12.9-16.9); Immature Granulocytes % 0.9 % (0-4); Lymphocytes # 2.5 K/mcL (0.6-4.6); Lymphocytes % 39.4 %; Mean Corpuscular HGB Conc 35.4 g/dL (31.6-35.5); Mean Corpuscular Hemoglobin 30.6 pg (28.0-33.3); Mean Corpuscular Volume 86.2 fL (83.0-100.0); Mean Platelet Volume 9.4 fL (9.4-12.4); Monocytes # 1.1 K/mcL (0.0-1.3); Monocytes % 16.8 %; Neutrophils # 2.5 K/mcL (1.6-8.9); Platelet Count 210 K/mcL (140-400); Red Blood Count 4.94 M/mcL (4.19-5.50); Red Cell Distribution Width 13.4 % (11.5-14.5); Segmented Neutrophils % 39.8 %; White Blood Count 6.3 K/mcL (4.3-11.1)
[2019-05-18 03:03] LABS: BUN/Creatinine Ratio 21 (6-26); Blood Urea Nitrogen 18 mg/dL (6-20); Calcium 8.8 mg/dL (8.6-10.3); Carbon Dioxide 26 mEq/L (23-29); Chloride 99 mEq/L (98-107); Glucose 188 mg/dL (70-105); Osmolality,Calculated 283 (280-300); Phosphorous 2.4 mg/dL (2.7-4.5); Potassium 3.8 mEq/L (3.5-5.1); Sodium 133 mEq/L (136-145); eGFR For African Americans > 60 (> 60); eGFR For Non-African Americans > 60 (> 60)
[2019-05-18 03:25] LABS: Albumin 3.3 g/dL (3.5-5.7); Albumin/Globulin Ratio 1.6 (1.1-2.2); Bilirubin,Direct 1.4 mg/dL (0.0-0.2); Bilirubin,Indirect 1.5 mg/dL (0.0-1.2); Bilirubin,Total 2.9 mg/dL (0.3-1.0); Globulin 2.1 g/dL (2.4-3.5); Total Protein 5.4 g/dL (6.4-8.9)
[2019-05-18 08:00] VITALS: BP 123/79
[2019-05-18] MEDS: *HR* Enoxaparin 40 MG/0.4 ML SYRINGE SQ SCH (08:25)
[2019-05-18] MEDS: Nicotine 2 MG GUM BC PRN (08:33)
[2019-05-18] MEDS: lamoTRIgine 100 MG TABLET PO SCH (08:33)
[2019-05-18] MEDS: Insulin LISPRO 300 UNITS/3 ML VIAL SQ SCH (08:34)
[2019-05-18] MEDS: Insulin DETEMIR 100 UNIT/ML X5UNITS SQ SCH (08:34)
[2019-05-18] MEDS: Nystatin POWDER 30 GM BOTTLE TP SCH (08:36)
== END 2019-05-18 13:42 | disposition other institution (70) | DRG 637 ==
LOC: EMEROOARM 12:27 → SUATTDRO 21:43 → ICNU 21:43 → 3ANU 05-15 22:21 → 2NNU 05-16 13:50 → CDU 05-17 13:21 → 2ANU 05-17 17:22
PROVIDERS: ADMIT Family Medicine; ATTEND Internal Medicine

== ENCOUNTER 2022-04-02 19:28 | Inpatient (IN) ==
[2022-04-02] MEDS ORDERED: Iopamidol - 370 500 ML MLS IVP ONE (20:12)
[2022-04-02 20:24] LABS: Hematocrit 37.9 % (37.5-50.1); Hemoglobin 12.7 g/dL (12.9-16.9); Mean Corpuscular HGB Conc 33.5 g/dL (31.6-35.5); Mean Corpuscular Hemoglobin 28.5 pg (28.0-33.3); Mean Corpuscular Volume 85.2 fL (83.0-100.0); Mean Platelet Volume 10.4 fL (9.4-12.4); Platelet Count 169 K/mcL (140-400); Red Blood Count 4.45 M/mcL (4.19-5.50); Red Cell Distribution Width 14.6 % (11.5-14.5); White Blood Count 14.1 K/mcL (4.3-11.1)
[2022-04-02 20:31] LABS: INR 1.5; Prothrombin Time 16.6 Seconds (9.4-12.1)
[2022-04-02 20:34] LABS: Activated Partial Thrombo Time 35.7 Seconds (26.0-36.0)
[2022-04-02 20:45] LABS: Lymphocytes # 1.7 K/mcL (0.6-4.6); Monocytes # 0.6 K/mcL (0.0-1.3); Neutrophils # 11.3 K/mcL (1.6-8.9); Platelet Estimate Normal (Normal); Toxic Granulation Present (Not Present)
[2022-04-02 20:54] LABS: Calcium 8.5 mg/dL (8.6-10.3); Potassium 4.8 mEq/L (3.5-5.1)
[2022-04-02] MEDS ORDERED: 0.9 % Sodium Chloride 1,000 ML IV ONE (20:55)
[2022-04-02] MEDS ORDERED: Acetaminophen 325 MG TABLET PO ONE (22:56)
[2022-04-03] MEDS ORDERED: Acetaminophen 325 MG TABLET PO PRN (00:01)
[2022-04-03] MEDS ORDERED: Ondansetron 4 MG/2 ML VIAL IVP PRN (00:01)
[2022-04-03] MEDS ORDERED: Naloxone 0.4 MG/ML INJ IVP PRN (00:01)
[2022-04-03] MEDS ORDERED: *HR* Dextrose 50 % in Water (Syg) 50 ML SYRINGE IVP PRN (00:05)
[2022-04-03] MEDS ORDERED: D5% in Water 1,000 ML IVC PRN (00:05)
[2022-04-03] MEDS ORDERED: Dextrose Gel 15 GM/37.5 ML TUBE PO PRN ×2 (00:05)
[2022-04-03] MEDS ORDERED: 0.9 % Sodium Chloride 1,000 ML IVC SCH (00:15)
[2022-04-03] MEDS: Clindamycin 600 MG/50 ML 600 MG/50 ML IV.SOLN IVPB SCH ×3 (01:05→16:24)
[2022-04-03 01:40] LABS: Basophils # 0.1 K/mcL (0.0-0.2); Basophils % 0.4 %; Eosinophils % 0.1 %; Hematocrit 37.3 % (37.5-50.1); Hemoglobin 12.3 g/dL (12.9-16.9); Immature Granulocytes % 0.6 % (0-4); Lymphocytes # 0.8 K/mcL (0.6-4.6); Lymphocytes % 4.4 %; Mean Corpuscular Hemoglobin 28.5 pg (28.0-33.3); Mean Corpuscular Volume 86.5 fL (83.0-100.0); Mean Platelet Volume 10.7 fL (9.4-12.4); Monocytes # 1.4 K/mcL (0.0-1.3); Neutrophils # 15.4 K/mcL (1.6-8.9); Platelet Count 169 K/mcL (140-400); Red Blood Count 4.31 M/mcL (4.19-5.50); Red Cell Distribution Width 14.7 % (11.5-14.5); Segmented Neutrophils % 86.5 %; White Blood Count 17.8 K/mcL (4.3-11.1)
[2022-04-03 01:50] LABS: Bilirubin,Urine Negative (Negative); Blood,Urine Small (Negative); Clarity,Urine Clear (Clear); Color,Urine Light-Yellow (Yellow); Glucose,Urine (UA) >=1000 mg/dL (Normal); Ketones,Urine 20 mg/dL (Negative); Leukocyte Esterase,Urine Negative (Negative); Nitrite,Urine Negative (Negative); Protein,Urine 50 mg/dL (Neg-Trace); RBC,Urine 0-3 per hpf (0-3); Specific Gravity,Urine > 1.030 (1.010-1.025); Squamous Epithelial Cell,Urine Few per hpf (None-Few); Urobilinogen,Urine Normal (Normal); WBC,Urine 0-3 per hpf (0-3)
[2022-04-03 02:01] LABS: BUN/Creatinine Ratio 22 (6-26); Blood Urea Nitrogen 43 mg/dL (6-20); C-Reactive Protein > 300 mg/L (Less than 10); Calcium 8.1 mg/dL (8.6-10.3); Carbon Dioxide 15 mEq/L (23-29); Chloride 102 mEq/L (98-107); Glucose 318 mg/dL (70-105); Magnesium 2.1 mg/dL (1.6-2.6); Osmolality,Calculated 309 (280-300); Potassium 5.1 mEq/L (3.5-5.1); Sodium 138 mEq/L (136-145); Thyroid Stimulating Hormone 3.391 mcIU/mL (0.340-5.600); eGFR For African Americans 45 (> 60); eGFR For Non-African Americans 37 (> 60)
[2022-04-03 02:22] LABS: Platelet Estimate Normal (Normal)
[2022-04-03 03:05] LABS: Bilirubin,Direct 0.9 mg/dL (0.0-0.2); Bilirubin,Indirect 0.5 mg/dL (0.0-1.0); Bilirubin,Total 1.4 mg/dL (0.3-1.0)
[2022-04-03] MEDS ORDERED: Insulin LISPRO 300 UNITS/3 ML VIAL SUBQ SCH ×2 (06:00→07:30)
[2022-04-03] MEDS ORDERED: levoFLOXacin 750 MG/150 ML 750 MG/150 ML BAG IVPB ONE (08:21)
[2022-04-03] MEDS ORDERED: Lidocaine -MPF 1% 5 ML AMPUL ONE (08:36)
[2022-04-03 08:44] LABS: Estimated Average Glucose 255 mg/dl; Hemoglobin A1C 10.5 %
[2022-04-03] MEDS: Insulin DETEMIR 100 UNIT/ML X5UNITS SUBQ SCH ×2 (09:43→20:47)
[2022-04-03] MEDS ORDERED: Lidocaine/EPI 1:100k 1% 50 ML VIAL INFILT ONE (10:14)
[2022-04-03] MEDS: 0.9 % Sodium Chloride 1,000 ML IVC SCH ×2 (11:02→19:33)
[2022-04-03] MEDS: lamoTRIgine 100 MG TABLET PO SCH (11:20)
[2022-04-03] MEDS: Gabapentin 300 MG CAPSULE PO SCH ×2 (11:20→20:55)
[2022-04-03] MEDS: Insulin LISPRO 300 UNITS/3 ML VIAL SUBQ SCH ×2 (12:45→16:26)
[2022-04-03] MEDS ORDERED: traZODone 50 MG TABLET PO PRN (15:22)
[2022-04-03] MEDS: Neosporin OINT 15 GM TUBE TP SCH ×2 (16:24→22:00)
[2022-04-03] MEDS: hydrOXYzine pamoate 25 MG CAPSULE PO SCH ×2 (18:02→20:56)
[2022-04-03] MEDS: Chlorhexidine Rinse 15 ML MOUTHWASH MM SCH (20:54)
[2022-04-03] MEDS: ARIPiprazole 10 MG TABLET PO SCH (20:54)
[2022-04-03] MEDS: clonazePAM 0.5 MG TABLET PO SCH (20:54)
[2022-04-03] MEDS: carBAMazepine 200 MG TABLET PO SCH (20:56)
[2022-04-03] MEDS: QUEtiapine Fumarate 100 MG TABLET PO SCH (20:56)
[2022-04-03] MEDS ORDERED: Acetaminophen IV 500 MG/50 ML BAG IVPB ONE (21:46)
[2022-04-04] MEDS: Clindamycin 600 MG/50 ML 600 MG/50 ML IV.SOLN IVPB SCH ×4 (01:42→23:41)
[2022-04-04 04:07] LABS: Basophils % 0.3 %; Hematocrit 38.9 % (37.5-50.1); Hemoglobin 13.1 g/dL (12.9-16.9); Immature Granulocytes % 2.4 % (0-4); Lymphocytes # 0.7 K/mcL (0.6-4.6); Lymphocytes % 5.4 %; Mean Corpuscular HGB Conc 33.7 g/dL (31.6-35.5); Mean Corpuscular Hemoglobin 27.9 pg (28.0-33.3); Mean Corpuscular Volume 82.8 fL (83.0-100.0); Mean Platelet Volume 9.7 fL (9.4-12.4); Monocytes # 0.9 K/mcL (0.0-1.3); Monocytes % 6.8 %; Neutrophils # 11.3 K/mcL (1.6-8.9); Platelet Count 203 K/mcL (140-400); Red Cell Distribution Width 14.4 % (11.5-14.5); Segmented Neutrophils % 85.1 %; White Blood Count 13.3 K/mcL (4.3-11.1)
[2022-04-04 04:26] LABS: BUN/Creatinine Ratio 29 (6-26); Blood Urea Nitrogen 39 mg/dL (6-20); Calcium 8.4 mg/dL (8.6-10.3); Carbon Dioxide 20 mEq/L (23-29); Chloride 112 mEq/L (98-107); Glucose 183 mg/dL (70-105); Osmolality,Calculated 310 (280-300); Potassium 4.7 mEq/L (3.5-5.1); Sodium 143 mEq/L (136-145); eGFR For African Americans > 60 (> 60); eGFR For Non-African Americans 56 (> 60)
[2022-04-04 04:38] LABS: Platelet Estimate Normal (Normal)
[2022-04-04] MEDS: Morphine Sulfate 2 MG/ML SYRINGE IVP PRN ×4 (05:46→20:11)
[2022-04-04] MEDS: 0.9 % Sodium Chloride 1,000 ML IVC SCH ×4 (05:49→22:17)
[2022-04-04] MEDS: Insulin LISPRO 300 UNITS/3 ML VIAL SUBQ SCH ×2 (07:52→12:28)
[2022-04-04] MEDS: Chlorhexidine Rinse 15 ML MOUTHWASH MM SCH ×2 (07:53→20:18)
[2022-04-04] MEDS: clonazePAM 0.5 MG TABLET PO SCH ×2 (07:53→20:19)
[2022-04-04] MEDS: lamoTRIgine 100 MG TABLET PO SCH (07:53)
[2022-04-04] MEDS: Gabapentin 300 MG CAPSULE PO SCH ×2 (07:53→20:18)
[2022-04-04] MEDS: hydrOXYzine pamoate 25 MG CAPSULE PO SCH ×4 (07:54→20:20)
[2022-04-04] MEDS: carBAMazepine 200 MG TABLET PO SCH ×3 (07:54→20:18)
[2022-04-04] MEDS ORDERED: NON-FORMULARY MEDICATION 1 EACH EACH (Fluoxetine Hcl [Fluoxetine Hcl] 40 MG Capsule) PO SCH (09:00)
[2022-04-04] MEDS ORDERED: lisinopriL 10 MG TABLET PO SCH (09:00)
[2022-04-04] MEDS ORDERED: levoFLOXacin 750 MG/150 ML 750 MG/150 ML BAG IVPB SCH (09:00)
[2022-04-04] MEDS ORDERED: FLUoxetine 20 MG CAPSULE PO SCH (09:00)
[2022-04-04] MEDS ORDERED: *HR* Metoprolol 5 MG/5 ML VIAL IVP ONE (09:15)
[2022-04-04] MEDS: Insulin DETEMIR 100 UNIT/ML X5UNITS SUBQ SCH ×2 (09:31→20:24)
[2022-04-04] MEDS: Neosporin OINT 15 GM TUBE TP SCH ×3 (09:31→20:18)
[2022-04-04] MEDS: *HR* Metoprolol 5 MG/5 ML VIAL IVP SCH ×4 (12:39→23:41)
[2022-04-04] MEDS: *HR* LORazepam 2 MG/ML VIAL IVP PRN ×2 (14:19→22:53)
[2022-04-04] MEDS: QUEtiapine Fumarate 100 MG TABLET PO SCH (20:18)
[2022-04-04] MEDS: ARIPiprazole 10 MG TABLET PO SCH (20:19)
[2022-04-04] MEDS ORDERED: *HR* Metoprolol 5 MG/5 ML VIAL IVP PRN (23:33)
[2022-04-05] MEDS ORDERED: Insulin LISPRO 300 UNITS/3 ML VIAL SUBQ SCH
[2022-04-05 01:03] LABS: Adenovirus Not Detected (Not Detect); Bordetella Pertussis Not Detected (Not Detect); Chlamydophila pneumoniae Not Detected (Not Detect); Coronavirus 229E Not Detected (Not Detect); Coronavirus HKU1 Not Detected (Not Detect); Coronavirus NL63 Not Detected (Not Detect); Coronavirus OC43 Not Detected (Not Detect); Human Metapneumovirus Not Detected (Not Detect); Human Rhinovirus/Enterovirus Not Detected (Not Detect); Influenza A Subtype 2009 H1 Not Detected (Not Detect); Influenza B Not Detected (Not Detect); Mycoplasma pneumoniae Not Detected (Not Detect); Parainfluenza Virus 1 Not Detected (Not Detect); Parainfluenza Virus 2 Not Detected (Not Detect); Parainfluenza Virus 3 Not Detected (Not Detect); Parainfluenza Virus 4 Not Detected (Not Detect); Respiratory Syncytial Virus Not Detected (Not Detect); SARS-CoV-2 Not Detected (Not Detect)
[2022-04-05] MEDS ORDERED: Dexmedetomidine HCl 400 MCG/100 ML MLS IVC SCH (02:15)
[2022-04-05 04:13] VITALS: BP 123/63; TEMP 98.6; O2SAT 95
[2022-04-05 04:17] VITALS: PULSE 85
== END 2022-04-05 05:55 | disposition short-term general hospital (02) | DRG 871 ==
LOC: EMEROOARM 19:28 → 3ANU 19:28 → 3NENU 04-03 22:24 → ICNU 04-04 12:20
PROVIDERS: ADMIT Student in an Organized Health Care Education/Training Program; ATTEND Student in an Organized Health Care Education/Training Program

== ENCOUNTER 2022-06-26 15:25 | Inpatient (IN) ==
[2022-06-26 21:00] LABS: Basophils # 0.1 K/mcL (0.0-0.2); Basophils % 0.5 %; Eosinophils # 0.1 K/mcL (0.0-0.6); Eosinophils % 1.5 %; Hematocrit 42.3 % (37.5-50.1); Hemoglobin 14.4 g/dL (12.9-16.9); Immature Granulocytes % 0.5 % (0-4); Lymphocytes # 2.5 K/mcL (0.6-4.6); Lymphocytes % 26.3 %; Mean Corpuscular Hemoglobin 31.2 pg (28.0-33.3); Mean Corpuscular Volume 91.6 fL (83.0-100.0); Mean Platelet Volume 9.3 fL (9.4-12.4); Neutrophils # 5.8 K/mcL (1.6-8.9); Platelet Count 307 K/mcL (140-400); Red Blood Count 4.62 M/mcL (4.19-5.50); Red Cell Distribution Width 14.7 % (11.5-14.5); Segmented Neutrophils % 61.2 %; White Blood Count 9.5 K/mcL (4.3-11.1)
[2022-06-26 21:17] LABS: BUN/Creatinine Ratio 43 (6-26); Blood Urea Nitrogen 32 mg/dL (6-20); Calcium 10.1 mg/dL (8.6-10.3); Carbon Dioxide 22 mEq/L (23-29); Chloride 105 mEq/L (98-107); Glucose 112 mg/dL (70-105); Magnesium 2.1 mg/dL (1.6-2.6); Osmolality,Calculated 294 (280-300); Potassium 4.5 mEq/L (3.5-5.1); Sodium 138 mEq/L (136-145)
[2022-06-26] MEDS ORDERED: Vancomycin 1,250 MG/262.5 ML IV.SOLN IVPB ONE (21:24)
[2022-06-26] MEDS ORDERED: Cefepime HCl 2,000 MG in 0.9 % Sodium Chloride 10 ML IVP ONE (21:26)
[2022-06-26] MEDS ORDERED: Acetaminophen 325 MG TABLET PO PRN (21:55)
[2022-06-26] MEDS ORDERED: Naloxone 0.4 MG/ML INJ IVP PRN (21:55)
[2022-06-26] MEDS ORDERED: Ondansetron 4 MG/2 ML VIAL IVP PRN (21:55)
[2022-06-26] MEDS ORDERED: D5% in Water 1,000 ML IVC PRN (21:57)
[2022-06-26] MEDS ORDERED: Dextrose Gel 15 GM/37.5 ML TUBE PO PRN ×2 (21:57)
[2022-06-26] MEDS: 0.9 % Sodium Chloride 1,000 ML IVC SCH (22:31)
[2022-06-26 23:11] LABS: Bilirubin,Urine Negative (Negative); Blood,Urine Negative (Negative); Clarity,Urine Clear (Clear); Color,Urine Light-Yellow (Yellow); Glucose,Urine (UA) >=1000 mg/dL (Normal); Hyaline Casts,Urine Few per lpf (None Seen); Ketones,Urine 10 mg/dL (Negative); Leukocyte Esterase,Urine Negative (Negative); Nitrite,Urine Negative (Negative); Protein,Urine Trace mg/dL (Neg-Trace); RBC,Urine 0-3 per hpf (0-3); Specific Gravity,Urine > 1.030 (1.010-1.025); Urobilinogen,Urine Normal (Normal); WBC,Urine 0-3 per hpf (0-3)
[2022-06-27] MEDS ORDERED: Cefepime HCl 2,000 MG in 0.9 % Sodium Chloride Mini Bag 100 ML IVPB SCH
[2022-06-27 01:39] LABS: Basophils # 0.1 K/mcL (0.0-0.2); Basophils % 0.6 %; Eosinophils # 0.2 K/mcL (0.0-0.6); Eosinophils % 1.9 %; Hemoglobin 13.3 g/dL (12.9-16.9); Immature Granulocytes % 0.6 % (0-4); Lymphocytes % 31.5 %; Mean Corpuscular HGB Conc 34.1 g/dL (31.6-35.5); Mean Corpuscular Hemoglobin 31.2 pg (28.0-33.3); Mean Corpuscular Volume 91.5 fL (83.0-100.0); Mean Platelet Volume 9.3 fL (9.4-12.4); Monocytes % 10.7 %; Neutrophils # 5.3 K/mcL (1.6-8.9); Platelet Count 297 K/mcL (140-400); Red Blood Count 4.26 M/mcL (4.19-5.50); Red Cell Distribution Width 14.7 % (11.5-14.5); Segmented Neutrophils % 54.7 %; White Blood Count 9.6 K/mcL (4.3-11.1)
[2022-06-27 02:03] LABS: Alanine Aminotransferase 6 Units/L (7-52); Albumin 3.7 g/dL (3.5-5.7); Albumin/Globulin Ratio 1.1 (1.1-2.2); Alkaline Phosphatase 52 Units/L (34-104); Aspartate Amino Transferase 8 Units/L (13-39); BUN/Creatinine Ratio 44 (6-26); Bilirubin,Direct 0.1 mg/dL (0.0-0.2); Bilirubin,Indirect 0.5 mg/dL (0.0-1.0); Bilirubin,Total 0.6 mg/dL (0.3-1.0); Blood Urea Nitrogen 30 mg/dL (6-20); C-Reactive Protein 46 mg/L (Less than 10); Calcium 9.8 mg/dL (8.6-10.3); Carbon Dioxide 24 mEq/L (23-29); Chloride 106 mEq/L (98-107); Globulin 3.4 g/dL (2.4-3.5); Glucose 114 mg/dL (70-105); Magnesium 1.9 mg/dL (1.6-2.6); Osmolality,Calculated 295 (280-300); Potassium 4.4 mEq/L (3.5-5.1); Sodium 139 mEq/L (136-145); Total Protein 7.1 g/dL (6.4-8.9)
[2022-06-27] MEDS: Nicotine 2 MG GUM BC PRN ×4 (05:58→19:05)
[2022-06-27] MEDS: Insulin LISPRO 300 UNITS/3 ML VIAL SUBQ SCH ×3 (07:49→17:28)
[2022-06-27] MEDS: Cefepime HCl 2,000 MG in 0.9 % Sodium Chloride Mini Bag 100 ML IVPB SCH ×2 (07:49→17:21)
[2022-06-27] MEDS: Vancomycin 1,500 MG/265 ML IV.SOLN IVPB SCH (10:12)
[2022-06-27] MEDS: 0.9 % Sodium Chloride 1,000 ML IVC SCH (14:04)
[2022-06-27] MEDS ORDERED: NICOTINE POLACRILEX GUM BC PRN (14:37)
[2022-06-27] MEDS: levoFLOXacin 750 MG TABLET PO SCH (17:15)
[2022-06-27] MEDS: cloNIDine HCL 0.1 MG TABLET PO SCH ×2 (17:16→21:53)
[2022-06-27] MEDS: Venlafaxine XR (24 HR) 37.5 MG CAP.ER.24H PO SCH (17:16)
[2022-06-27] MEDS: FLUoxetine 20 MG CAPSULE PO SCH (17:16)
[2022-06-27] MEDS: carvediloL 25 MG TABLET PO SCH (17:16)
[2022-06-27] MEDS: Cholecalciferol (D-3) 1,000 UNIT (25MCG) TABLET PO SCH (17:16)
[2022-06-27] MEDS: lisinopriL 20 MG TABLET PO SCH (17:17)
[2022-06-27] MEDS: *HR* Digoxin 0.125 MG TABLET PO SCH (17:17)
[2022-06-27] MEDS: clonazePAM 1 MG TABLET PO SCH ×2 (17:17→21:52)
[2022-06-27] MEDS: Empagliflozin [Jardiance] 10 MG PO SCH (17:19)
[2022-06-27] MEDS ORDERED: QUEtiapine Fumarate 100 MG TABLET PO SCH (21:00)
[2022-06-27] MEDS ORDERED: ARIPiprazole 10 MG TABLET PO SCH (21:00)
[2022-06-27] MEDS: Apixaban 5 MG TABLET PO SCH (21:53)
[2022-06-27] MEDS: Insulin DETEMIR 100 UNIT/ML X5UNITS SUBQ SCH (21:54)
[2022-06-28] MEDS: Vancomycin 1,500 MG/265 ML IV.SOLN IVPB SCH ×2 (00:17→14:33)
[2022-06-28] MEDS: Cefepime HCl 2,000 MG in 0.9 % Sodium Chloride Mini Bag 100 ML IVPB SCH ×2 (02:36→09:01)
[2022-06-28] MEDS: Nicotine 2 MG GUM BC PRN ×4 (02:52→20:01)
[2022-06-28 03:36] LABS: Hematocrit 36.1 % (37.5-50.1); Hemoglobin 12.1 g/dL (12.9-16.9); Mean Corpuscular HGB Conc 33.5 g/dL (31.6-35.5); Mean Corpuscular Hemoglobin 30.5 pg (28.0-33.3); Mean Corpuscular Volume 90.9 fL (83.0-100.0); Mean Platelet Volume 9.2 fL (9.4-12.4); Platelet Count 265 K/mcL (140-400); Red Blood Count 3.97 M/mcL (4.19-5.50); Red Cell Distribution Width 14.2 % (11.5-14.5); White Blood Count 5.7 K/mcL (4.3-11.1)
[2022-06-28 04:06] LABS: BUN/Creatinine Ratio 29 (6-26); Blood Urea Nitrogen 16 mg/dL (6-20); Calcium 9.3 mg/dL (8.6-10.3); Carbon Dioxide 23 mEq/L (23-29); Chloride 106 mEq/L (98-107); Glucose 181 mg/dL (70-105); Osmolality,Calculated 292 (280-300); Potassium 4.2 mEq/L (3.5-5.1); Sodium 138 mEq/L (136-145)
[2022-06-28] MEDS: Cholecalciferol (D-3) 1,000 UNIT (25MCG) TABLET PO SCH (09:02)
[2022-06-28] MEDS: FLUoxetine 20 MG CAPSULE PO SCH (09:02)
[2022-06-28] MEDS: Apixaban 5 MG TABLET PO SCH (09:02)
[2022-06-28] MEDS: lisinopriL 20 MG TABLET PO SCH (09:02)
[2022-06-28] MEDS: levoFLOXacin 750 MG TABLET PO SCH (09:02)
[2022-06-28] MEDS: cloNIDine HCL 0.1 MG TABLET PO SCH (09:02)
[2022-06-28] MEDS: Venlafaxine XR (24 HR) 37.5 MG CAP.ER.24H PO SCH (09:02)
[2022-06-28] MEDS: carvediloL 25 MG TABLET PO SCH (09:02)
[2022-06-28] MEDS: *HR* Digoxin 0.125 MG TABLET PO SCH (09:02)
[2022-06-28] MEDS: clonazePAM 1 MG TABLET PO SCH (09:02)
[2022-06-28] MEDS: Insulin LISPRO 300 UNITS/3 ML VIAL SUBQ SCH ×3 (09:03→17:12)
[2022-06-28] MEDS: Empagliflozin [Jardiance] 10 MG PO SCH (09:04)
[2022-06-28] MEDS: Insulin DETEMIR 100 UNIT/ML X5UNITS SUBQ SCH ×2 (09:04→20:06)
[2022-06-28] MEDS ORDERED: E-Z-HD (BARIUM SULF) SUSPENSION PO ONE (11:04)
[2022-06-28] MEDS ORDERED: E-Z-PAQUE (BARIUM SULF) SUSP 1 BOTTLE PO ONE (11:04)
[2022-06-28] MEDS: cloNIDine HCL 0.1 MG TABLET GTUBE SCH ×2 (14:19→20:02)
[2022-06-28] MEDS: carvediloL 25 MG TABLET GTUBE SCH (17:20)
[2022-06-28] MEDS: Doxycycline 100 MG in 0.9 % Sodium Chloride Mini Bag 100 ML IVPB SCH (17:20)
[2022-06-28] MEDS: Apixaban 5 MG TABLET GTUBE SCH (20:02)
[2022-06-28] MEDS: ARIPiprazole 10 MG TABLET GTUBE SCH (20:03)
[2022-06-28] MEDS: QUEtiapine Fumarate 100 MG TABLET GTUBE SCH (20:03)
[2022-06-28] MEDS: clonazePAM 1 MG TABLET GTUBE SCH (20:04)
[2022-06-28] MEDS: Ciprofloxacin/Dex *EAR* Susp 7.5 ML BOTTLE TP SCH (20:32)
[2022-06-28] MEDS ORDERED: Doxycycline 100 MG CAPSULE PO SCH (21:00)
[2022-06-29] MEDS: Nicotine 2 MG GUM BC PRN ×4 (03:23→22:45)
[2022-06-29] MEDS: Doxycycline 100 MG in 0.9 % Sodium Chloride Mini Bag 100 ML IVPB SCH ×2 (05:43→18:30)
[2022-06-29] MEDS: carvediloL 25 MG TABLET GTUBE SCH ×2 (08:49→18:31)
[2022-06-29] MEDS: Apixaban 5 MG TABLET GTUBE SCH ×2 (08:49→22:45)
[2022-06-29] MEDS: cloNIDine HCL 0.1 MG TABLET GTUBE SCH ×3 (08:49→22:44)
[2022-06-29] MEDS: Cholecalciferol (D-3) 1,000 UNIT (25MCG) TABLET GTUBE SCH (08:49)
[2022-06-29] MEDS: *HR* Digoxin 0.125 MG TABLET GTUBE SCH (08:50)
[2022-06-29] MEDS: FLUoxetine HCl Oral Soln 20 MG/5 ML UDC GTUBE SCH (08:50)
[2022-06-29] MEDS: lisinopriL 20 MG TABLET GTUBE SCH (08:50)
[2022-06-29] MEDS: Venlafaxine XR (24 HR) 37.5 MG CAP.ER.24H PO SCH (08:50)
[2022-06-29] MEDS: clonazePAM 1 MG TABLET GTUBE SCH ×2 (08:51→22:45)
[2022-06-29] MEDS: Ciprofloxacin/Dex *EAR* Susp 7.5 ML BOTTLE TP SCH ×3 (08:52→22:45)
[2022-06-29] MEDS: Insulin LISPRO 300 UNITS/3 ML VIAL SUBQ SCH ×3 (08:53→15:40)
[2022-06-29] MEDS: Insulin DETEMIR 100 UNIT/ML X5UNITS SUBQ SCH ×2 (09:23→23:03)
[2022-06-29] MEDS: QUEtiapine Fumarate 100 MG TABLET GTUBE SCH (22:44)
[2022-06-29] MEDS: ARIPiprazole 10 MG TABLET GTUBE SCH (22:45)
[2022-06-30] MEDS: Doxycycline 100 MG in 0.9 % Sodium Chloride Mini Bag 100 ML IVPB SCH (06:12)
[2022-06-30] MEDS: Nicotine 2 MG GUM BC PRN ×2 (06:12→12:52)
[2022-06-30 07:12] LABS: Hematocrit 38.3 % (37.5-50.1); Hemoglobin 13.3 g/dL (12.9-16.9); Mean Corpuscular HGB Conc 34.7 g/dL (31.6-35.5); Mean Corpuscular Hemoglobin 31.4 pg (28.0-33.3); Mean Corpuscular Volume 90.3 fL (83.0-100.0); Mean Platelet Volume 9.6 fL (9.4-12.4); Platelet Count 255 K/mcL (140-400); Red Blood Count 4.24 M/mcL (4.19-5.50); Red Cell Distribution Width 14.5 % (11.5-14.5); White Blood Count 6.6 K/mcL (4.3-11.1)
[2022-06-30 07:31] LABS: BUN/Creatinine Ratio 23 (6-26); Blood Urea Nitrogen 12 mg/dL (6-20); Calcium 9.6 mg/dL (8.6-10.3); Carbon Dioxide 29 mEq/L (23-29); Chloride 101 mEq/L (98-107); Glucose 284 mg/dL (70-105); Osmolality,Calculated 294 (280-300); Potassium 3.9 mEq/L (3.5-5.1); Sodium 137 mEq/L (136-145)
[2022-06-30] MEDS: *HR* Digoxin 0.125 MG TABLET GTUBE SCH (09:02)
[2022-06-30] MEDS: cloNIDine HCL 0.1 MG TABLET GTUBE SCH ×3 (09:02→21:27)
[2022-06-30] MEDS: FLUoxetine HCl Oral Soln 20 MG/5 ML UDC GTUBE SCH (09:02)
[2022-06-30] MEDS: Cholecalciferol (D-3) 1,000 UNIT (25MCG) TABLET GTUBE SCH (09:02)
[2022-06-30] MEDS: lisinopriL 20 MG TABLET GTUBE SCH (09:03)
[2022-06-30] MEDS: Apixaban 5 MG TABLET GTUBE SCH ×2 (09:03→21:26)
[2022-06-30] MEDS: carvediloL 25 MG TABLET GTUBE SCH ×2 (09:03→16:52)
[2022-06-30] MEDS: clonazePAM 1 MG TABLET GTUBE SCH ×2 (09:04→21:27)
[2022-06-30] MEDS: Insulin LISPRO 300 UNITS/3 ML VIAL SUBQ SCH ×3 (09:04→16:05)
[2022-06-30] MEDS: Ciprofloxacin/Dex *EAR* Susp 7.5 ML BOTTLE TP SCH ×3 (09:05→21:26)
[2022-06-30] MEDS: Insulin DETEMIR 100 UNIT/ML X5UNITS SUBQ SCH ×2 (09:05→22:40)
[2022-06-30] MEDS: levoFLOXacin 750 MG TABLET GTUBE SCH (16:03)
[2022-06-30] MEDS: Nicotine 21 MG PATCH.TD24 TD SCH (16:51)
[2022-06-30] MEDS: ARIPiprazole 10 MG TABLET GTUBE SCH (21:27)
[2022-06-30] MEDS: QUEtiapine Fumarate 100 MG TABLET GTUBE SCH (21:27)
[2022-07-01] MEDS: Nicotine 21 MG PATCH.TD24 TD SCH (08:30)
[2022-07-01] MEDS: Cholecalciferol (D-3) 1,000 UNIT (25MCG) TABLET GTUBE SCH (08:35)
[2022-07-01] MEDS: levoFLOXacin 750 MG TABLET GTUBE SCH (08:35)
[2022-07-01] MEDS: clonazePAM 1 MG TABLET GTUBE SCH ×2 (08:35→23:28)
[2022-07-01] MEDS: carvediloL 25 MG TABLET GTUBE SCH ×2 (08:35→17:52)
[2022-07-01] MEDS: *HR* Digoxin 0.125 MG TABLET GTUBE SCH (08:36)
[2022-07-01] MEDS: Apixaban 5 MG TABLET GTUBE SCH ×2 (08:36→23:20)
[2022-07-01] MEDS: lisinopriL 20 MG TABLET GTUBE SCH (08:36)
[2022-07-01] MEDS: cloNIDine HCL 0.1 MG TABLET GTUBE SCH ×3 (08:36→23:23)
[2022-07-01] MEDS: FLUoxetine HCl Oral Soln 20 MG/5 ML UDC GTUBE SCH (08:37)
[2022-07-01] MEDS: Insulin DETEMIR 100 UNIT/ML X5UNITS SUBQ SCH ×2 (09:12→23:30)
[2022-07-01] MEDS: Insulin LISPRO 300 UNITS/3 ML VIAL SUBQ SCH ×3 (09:12→17:47)
[2022-07-01] MEDS: Ciprofloxacin/Dex *EAR* Susp 7.5 ML BOTTLE TP SCH ×3 (09:13→23:30)
[2022-07-01 16:30] LABS: Hematocrit 39.7 % (37.5-50.1); Hemoglobin 13.5 g/dL (12.9-16.9); Mean Corpuscular Volume 91.1 fL (83.0-100.0); Mean Platelet Volume 9.8 fL (9.4-12.4); Platelet Count 224 K/mcL (140-400); Red Blood Count 4.36 M/mcL (4.19-5.50); Red Cell Distribution Width 14.3 % (11.5-14.5); White Blood Count 8.1 K/mcL (4.3-11.1)
[2022-07-01 16:41] LABS: BUN/Creatinine Ratio 30 (6-26); Blood Urea Nitrogen 16 mg/dL (6-20); Calcium 9.8 mg/dL (8.6-10.3); Carbon Dioxide 30 mEq/L (23-29); Chloride 101 mEq/L (98-107); Glucose 227 mg/dL (70-105); Osmolality,Calculated 294 (280-300); Potassium 4.3 mEq/L (3.5-5.1); Sodium 138 mEq/L (136-145)
[2022-07-01] MEDS: QUEtiapine Fumarate 100 MG TABLET GTUBE SCH (23:20)
[2022-07-01] MEDS: ARIPiprazole 10 MG TABLET GTUBE SCH (23:20)
[2022-07-01] MEDS: Doxycycline 100 MG CAPSULE PO SCH (23:29)
[2022-07-02] MEDS: Insulin LISPRO 300 UNITS/3 ML VIAL SUBQ SCH ×4 (00:30→18:14)
[2022-07-02] MEDS: cloNIDine HCL 0.1 MG TABLET GTUBE SCH ×3 (11:08→23:28)
[2022-07-02] MEDS: levoFLOXacin 750 MG TABLET GTUBE SCH (11:09)
[2022-07-02] MEDS: lisinopriL 20 MG TABLET GTUBE SCH (11:09)
[2022-07-02] MEDS: *HR* Digoxin 0.125 MG TABLET GTUBE SCH (11:09)
[2022-07-02] MEDS: Cholecalciferol (D-3) 1,000 UNIT (25MCG) TABLET GTUBE SCH (11:09)
[2022-07-02] MEDS: Apixaban 5 MG TABLET GTUBE SCH ×2 (11:09→22:10)
[2022-07-02] MEDS: FLUoxetine HCl Oral Soln 20 MG/5 ML UDC GTUBE SCH (11:10)
[2022-07-02] MEDS: Nicotine 21 MG PATCH.TD24 TD SCH (11:10)
[2022-07-02] MEDS: clonazePAM 1 MG TABLET GTUBE SCH ×2 (11:10→22:11)
[2022-07-02] MEDS: Doxycycline 100 MG CAPSULE PO SCH ×2 (11:10→22:11)
[2022-07-02] MEDS: carvediloL 25 MG TABLET GTUBE SCH ×2 (11:15→17:55)
[2022-07-02] MEDS: Insulin DETEMIR 100 UNIT/ML X5UNITS SUBQ SCH ×2 (11:41→22:34)
[2022-07-02] MEDS: Ciprofloxacin/Dex *EAR* Susp 7.5 ML BOTTLE TP SCH ×3 (11:43→22:14)
[2022-07-02] MEDS: QUEtiapine Fumarate 100 MG TABLET GTUBE SCH (22:11)
[2022-07-02] MEDS: ARIPiprazole 10 MG TABLET GTUBE SCH (22:11)
[2022-07-03] MEDS: Insulin LISPRO 300 UNITS/3 ML VIAL SUBQ SCH ×4 (01:06→17:05)
[2022-07-03] MEDS: *HR* Dextrose 50 % in Water (Syg) 50 ML SYRINGE IVP PRN (05:11)
[2022-07-03] MEDS: Nicotine 21 MG PATCH.TD24 TD SCH (09:53)
[2022-07-03] MEDS: FLUoxetine HCl Oral Soln 20 MG/5 ML UDC GTUBE SCH (09:54)
[2022-07-03] MEDS: *HR* Digoxin 0.125 MG TABLET GTUBE SCH (09:55)
[2022-07-03] MEDS: carvediloL 25 MG TABLET GTUBE SCH ×2 (09:55→15:43)
[2022-07-03] MEDS: clonazePAM 1 MG TABLET GTUBE SCH ×2 (09:55→22:12)
[2022-07-03] MEDS: lisinopriL 20 MG TABLET GTUBE SCH (09:55)
[2022-07-03] MEDS: Cholecalciferol (D-3) 1,000 UNIT (25MCG) TABLET GTUBE SCH (09:55)
[2022-07-03] MEDS: Doxycycline 100 MG CAPSULE PO SCH ×2 (09:55→22:12)
[2022-07-03] MEDS: cloNIDine HCL 0.1 MG TABLET GTUBE SCH ×3 (09:55→22:11)
[2022-07-03] MEDS: Apixaban 5 MG TABLET GTUBE SCH ×2 (09:56→22:11)
[2022-07-03] MEDS: Ciprofloxacin/Dex *EAR* Susp 7.5 ML BOTTLE TP SCH ×3 (10:24→22:10)
[2022-07-03] MEDS: Insulin DETEMIR 100 UNIT/ML X5UNITS SUBQ SCH ×2 (10:24→22:15)
[2022-07-03] MEDS: ARIPiprazole 10 MG TABLET GTUBE SCH (22:11)
[2022-07-03] MEDS: QUEtiapine Fumarate 100 MG TABLET GTUBE SCH (22:11)
[2022-07-04] MEDS: Insulin LISPRO 300 UNITS/3 ML VIAL SUBQ SCH ×4 (01:02→17:28)
[2022-07-04] MEDS: cloNIDine HCL 0.1 MG TABLET GTUBE SCH ×3 (08:49→21:04)
[2022-07-04] MEDS: Ciprofloxacin/Dex *EAR* Susp 7.5 ML BOTTLE TP SCH ×3 (09:14→21:03)
[2022-07-04] MEDS: Doxycycline 100 MG CAPSULE PO SCH ×2 (09:21→21:03)
[2022-07-04] MEDS: carvediloL 25 MG TABLET GTUBE SCH ×2 (09:21→17:28)
[2022-07-04] MEDS: lisinopriL 20 MG TABLET GTUBE SCH (09:21)
[2022-07-04] MEDS: Nicotine 21 MG PATCH.TD24 TD SCH (09:21)
[2022-07-04] MEDS: clonazePAM 1 MG TABLET GTUBE SCH ×2 (09:21→21:04)
[2022-07-04] MEDS: *HR* Digoxin 0.125 MG TABLET GTUBE SCH (09:21)
[2022-07-04] MEDS: Cholecalciferol (D-3) 1,000 UNIT (25MCG) TABLET GTUBE SCH (09:21)
[2022-07-04] MEDS: Apixaban 5 MG TABLET GTUBE SCH ×2 (09:22→21:03)
[2022-07-04] MEDS: Insulin DETEMIR 100 UNIT/ML X5UNITS SUBQ SCH ×2 (09:22→21:08)
[2022-07-04] MEDS: FLUoxetine HCl Oral Soln 20 MG/5 ML UDC GTUBE SCH (09:22)
[2022-07-04] MEDS: ARIPiprazole 10 MG TABLET GTUBE SCH (21:04)
[2022-07-04] MEDS: QUEtiapine Fumarate 100 MG TABLET GTUBE SCH (21:04)
[2022-07-05] MEDS: Insulin LISPRO 300 UNITS/3 ML VIAL SUBQ SCH ×5 (01:00→23:46)
[2022-07-05 05:53] LABS: Hematocrit 41.2 % (37.5-50.1); Hemoglobin 14.2 g/dL (12.9-16.9); Mean Corpuscular HGB Conc 34.5 g/dL (31.6-35.5); Mean Corpuscular Hemoglobin 31.1 pg (28.0-33.3); Mean Corpuscular Volume 90.4 fL (83.0-100.0); Mean Platelet Volume 10.5 fL (9.4-12.4); Platelet Count 258 K/mcL (140-400); Red Blood Count 4.56 M/mcL (4.19-5.50); Red Cell Distribution Width 14.6 % (11.5-14.5); White Blood Count 10.2 K/mcL (4.3-11.1)
[2022-07-05 06:19] LABS: BUN/Creatinine Ratio 39 (6-26); Blood Urea Nitrogen 22 mg/dL (6-20); Calcium 10.3 mg/dL (8.6-10.3); Carbon Dioxide 30 mEq/L (23-29); Chloride 99 mEq/L (98-107); Glucose 103 mg/dL (70-105); Osmolality,Calculated 290 (280-300); Potassium 4.4 mEq/L (3.5-5.1); Sodium 138 mEq/L (136-145)
[2022-07-05] MEDS: Nicotine 21 MG PATCH.TD24 TD SCH (11:19)
[2022-07-05] MEDS: carvediloL 25 MG TABLET GTUBE SCH ×3 (11:52→16:11)
[2022-07-05] MEDS: Ciprofloxacin/Dex *EAR* Susp 7.5 ML BOTTLE TP SCH ×4 (11:53→20:32)
[2022-07-05] MEDS: Apixaban 5 MG TABLET GTUBE SCH ×2 (11:53→20:31)
[2022-07-05] MEDS: clonazePAM 1 MG TABLET GTUBE SCH ×3 (11:53→20:31)
[2022-07-05] MEDS: cloNIDine HCL 0.1 MG TABLET GTUBE SCH ×3 (11:53→20:38)
[2022-07-05] MEDS: lisinopriL 20 MG TABLET GTUBE SCH ×2 (11:54→12:47)
[2022-07-05] MEDS: Cholecalciferol (D-3) 1,000 UNIT (25MCG) TABLET GTUBE SCH ×2 (11:54→12:47)
[2022-07-05] MEDS: FLUoxetine HCl Oral Soln 20 MG/5 ML UDC GTUBE SCH ×2 (11:54→12:46)
[2022-07-05] MEDS: *HR* Digoxin 0.125 MG TABLET GTUBE SCH ×2 (11:54→12:47)
[2022-07-05] MEDS: Insulin DETEMIR 100 UNIT/ML X5UNITS SUBQ SCH ×2 (12:10→22:15)
[2022-07-05] MEDS: Doxycycline 100 MG CAPSULE PO SCH (12:40)
[2022-07-05] MEDS: QUEtiapine Fumarate 100 MG TABLET GTUBE SCH (20:31)
[2022-07-05] MEDS: ARIPiprazole 10 MG TABLET GTUBE SCH (20:31)
[2022-07-06] MEDS: *HR* Dextrose 50 % in Water (Syg) 50 ML SYRINGE IVP PRN (05:37)
[2022-07-06] MEDS: Insulin LISPRO 300 UNITS/3 ML VIAL SUBQ SCH ×3 (05:39→17:23)
[2022-07-06] MEDS: Ciprofloxacin/Dex *EAR* Susp 7.5 ML BOTTLE TP SCH ×3 (08:47→20:50)
[2022-07-06] MEDS: carvediloL 25 MG TABLET GTUBE SCH ×2 (08:48→15:45)
[2022-07-06] MEDS: Nicotine 21 MG PATCH.TD24 TD SCH (08:48)
[2022-07-06] MEDS: FLUoxetine HCl Oral Soln 20 MG/5 ML UDC GTUBE SCH (08:48)
[2022-07-06] MEDS: cloNIDine HCL 0.1 MG TABLET GTUBE SCH ×3 (08:48→20:49)
[2022-07-06] MEDS: clonazePAM 1 MG TABLET GTUBE SCH ×2 (08:48→20:50)
[2022-07-06] MEDS: Cholecalciferol (D-3) 1,000 UNIT (25MCG) TABLET GTUBE SCH (08:49)
[2022-07-06] MEDS: Apixaban 5 MG TABLET GTUBE SCH ×2 (08:49→20:50)
[2022-07-06] MEDS: *HR* Digoxin 0.125 MG TABLET GTUBE SCH (08:49)
[2022-07-06] MEDS: lisinopriL 20 MG TABLET GTUBE SCH (08:49)
[2022-07-06] MEDS: Insulin DETEMIR 100 UNIT/ML X5UNITS SUBQ SCH ×2 (09:13→20:50)
[2022-07-06] MEDS: QUEtiapine Fumarate 100 MG TABLET GTUBE SCH (20:49)
[2022-07-06] MEDS: ARIPiprazole 10 MG TABLET GTUBE SCH (20:49)
[2022-07-07] MEDS: Insulin LISPRO 300 UNITS/3 ML VIAL SUBQ SCH ×4 (01:27→17:48)
[2022-07-07] MEDS: FLUoxetine HCl Oral Soln 20 MG/5 ML UDC GTUBE SCH (08:09)
[2022-07-07] MEDS: Ciprofloxacin/Dex *EAR* Susp 7.5 ML BOTTLE TP SCH ×3 (08:09→23:05)
[2022-07-07] MEDS: Cholecalciferol (D-3) 1,000 UNIT (25MCG) TABLET GTUBE SCH (08:10)
[2022-07-07] MEDS: carvediloL 25 MG TABLET GTUBE SCH (08:10)
[2022-07-07] MEDS: Nicotine 21 MG PATCH.TD24 TD SCH (08:10)
[2022-07-07] MEDS: lisinopriL 10 MG TABLET GTUBE SCH (08:11)
[2022-07-07] MEDS: cloNIDine HCL 0.1 MG TABLET GTUBE SCH ×3 (08:11→23:04)
[2022-07-07] MEDS: Apixaban 5 MG TABLET GTUBE SCH ×2 (08:11→23:04)
[2022-07-07] MEDS: *HR* Digoxin 0.125 MG TABLET GTUBE SCH ×2 (08:11→08:15)
[2022-07-07] MEDS: clonazePAM 1 MG TABLET GTUBE SCH ×2 (08:11→23:05)
[2022-07-07] MEDS: Insulin DETEMIR 100 UNIT/ML X5UNITS SUBQ SCH ×2 (08:45→23:47)
[2022-07-07] MEDS: ARIPiprazole 10 MG TABLET GTUBE SCH (23:04)
[2022-07-07] MEDS: QUEtiapine Fumarate 100 MG TABLET GTUBE SCH (23:05)
[2022-07-08] MEDS: Insulin LISPRO 300 UNITS/3 ML VIAL SUBQ SCH ×4 (01:05→18:02)
[2022-07-08] MEDS: Nicotine 21 MG PATCH.TD24 TD SCH (10:01)
[2022-07-08] MEDS: FLUoxetine HCl Oral Soln 20 MG/5 ML UDC GTUBE SCH (10:01)
[2022-07-08] MEDS: *HR* Digoxin 0.125 MG TABLET GTUBE SCH (10:02)
[2022-07-08] MEDS: clonazePAM 1 MG TABLET GTUBE SCH ×2 (10:02→20:45)
[2022-07-08] MEDS: cloNIDine HCL 0.1 MG TABLET GTUBE SCH ×2 (10:02→20:46)
[2022-07-08] MEDS: Apixaban 5 MG TABLET GTUBE SCH ×2 (10:02→20:46)
[2022-07-08] MEDS: Cholecalciferol (D-3) 1,000 UNIT (25MCG) TABLET GTUBE SCH (10:02)
[2022-07-08] MEDS: lisinopriL 10 MG TABLET GTUBE SCH (10:02)
[2022-07-08] MEDS: carvediloL 6.25 MG TABLET GTUBE SCH ×2 (10:06→18:02)
[2022-07-08] MEDS: Insulin DETEMIR 100 UNIT/ML X5UNITS SUBQ SCH (10:07)
[2022-07-08] MEDS: Ciprofloxacin/Dex *EAR* Susp 7.5 ML BOTTLE TP SCH ×3 (10:15→20:46)
[2022-07-08] MEDS: ARIPiprazole 10 MG TABLET GTUBE SCH (20:45)
[2022-07-08] MEDS: QUEtiapine Fumarate 100 MG TABLET GTUBE SCH (20:45)
[2022-07-09] MEDS: Insulin DETEMIR 100 UNIT/ML X5UNITS SUBQ SCH ×3 (00:46→20:44)
[2022-07-09] MEDS: Insulin LISPRO 300 UNITS/3 ML VIAL SUBQ SCH ×4 (01:14→18:15)
[2022-07-09] MEDS: *HR* Dextrose 50 % in Water (Syg) 50 ML SYRINGE IVP PRN (07:54)
[2022-07-09] MEDS: FLUoxetine HCl Oral Soln 20 MG/5 ML UDC GTUBE SCH (08:01)
[2022-07-09] MEDS: Nicotine 21 MG PATCH.TD24 TD SCH (08:02)
[2022-07-09] MEDS: Cholecalciferol (D-3) 1,000 UNIT (25MCG) TABLET GTUBE SCH (08:03)
[2022-07-09] MEDS: cloNIDine HCL 0.1 MG TABLET GTUBE SCH ×2 (08:03→20:43)
[2022-07-09] MEDS: carvediloL 6.25 MG TABLET GTUBE SCH ×2 (08:03→18:14)
[2022-07-09] MEDS: *HR* Digoxin 0.125 MG TABLET GTUBE SCH (08:03)
[2022-07-09] MEDS: lisinopriL 10 MG TABLET GTUBE SCH (08:04)
[2022-07-09] MEDS: clonazePAM 1 MG TABLET GTUBE SCH ×2 (08:04→20:44)
[2022-07-09] MEDS: Ciprofloxacin/Dex *EAR* Susp 7.5 ML BOTTLE TP SCH ×3 (08:05→20:43)
[2022-07-09] MEDS: Apixaban 5 MG TABLET GTUBE SCH ×2 (08:05→20:44)
[2022-07-09] MEDS: Neosporin OINT 15 GM TUBE TP SCH (18:13)
[2022-07-09] MEDS: QUEtiapine Fumarate 100 MG TABLET GTUBE SCH (20:43)
[2022-07-09] MEDS: ARIPiprazole 10 MG TABLET GTUBE SCH (20:43)
[2022-07-10] MEDS: Insulin LISPRO 300 UNITS/3 ML VIAL SUBQ SCH ×4 (00:20→19:16)
[2022-07-10 05:38] LABS: Alanine Aminotransferase 22 Units/L (7-52); Albumin 3.9 g/dL (3.5-5.7); Albumin/Globulin Ratio 1.3 (1.1-2.2); Alkaline Phosphatase 84 Units/L (34-104); Aspartate Amino Transferase 19 Units/L (13-39); BUN/Creatinine Ratio 32 (6-26); Blood Urea Nitrogen 22 mg/dL (6-20); Carbon Dioxide 28 mEq/L (23-29); Chloride 103 mEq/L (98-107); Globulin 2.9 g/dL (2.4-3.5); Glucose 87 mg/dL (70-105); Osmolality,Calculated 289 (280-300); Potassium 3.8 mEq/L (3.5-5.1); Sodium 138 mEq/L (136-145); Total Protein 6.8 g/dL (6.4-8.9)
[2022-07-10] MEDS: Neosporin OINT 15 GM TUBE TP SCH ×4 (09:29→21:35)
[2022-07-10] MEDS: FLUoxetine HCl Oral Soln 20 MG/5 ML UDC GTUBE SCH (09:42)
[2022-07-10] MEDS: *HR* Digoxin 0.125 MG TABLET GTUBE SCH (09:42)
[2022-07-10] MEDS: Apixaban 5 MG TABLET GTUBE SCH ×2 (09:43→21:33)
[2022-07-10] MEDS: clonazePAM 1 MG TABLET GTUBE SCH ×2 (09:43→21:34)
[2022-07-10] MEDS: Nicotine 21 MG PATCH.TD24 TD SCH (09:43)
[2022-07-10] MEDS: lisinopriL 10 MG TABLET GTUBE SCH (09:43)
[2022-07-10] MEDS: cloNIDine HCL 0.1 MG TABLET GTUBE SCH ×2 (09:43→21:34)
[2022-07-10] MEDS: Cholecalciferol (D-3) 1,000 UNIT (25MCG) TABLET GTUBE SCH (09:43)
[2022-07-10] MEDS: Ciprofloxacin/Dex *EAR* Susp 7.5 ML BOTTLE TP SCH ×3 (09:44→21:34)
[2022-07-10] MEDS: Insulin DETEMIR 100 UNIT/ML X5UNITS SUBQ SCH ×2 (09:44→22:04)
[2022-07-10] MEDS: carvediloL 6.25 MG TABLET GTUBE SCH ×2 (09:45→16:32)
[2022-07-10] MEDS: *HR* HYDROcodone/Acet 5/325 mg TABLET PO PRN ×2 (16:38→22:57)
[2022-07-10] MEDS: ARIPiprazole 10 MG TABLET GTUBE SCH (21:34)
[2022-07-10] MEDS: QUEtiapine Fumarate 100 MG TABLET GTUBE SCH (22:04)
[2022-07-10] MEDS: D5% in 0.9% NACL 1,000 ML IVC SCH (22:58)
[2022-07-11] MEDS: Insulin LISPRO 300 UNITS/3 ML VIAL SUBQ SCH ×4 (00:33→17:44)
[2022-07-11] MEDS: *HR* HYDROcodone/Acet 5/325 mg TABLET PO PRN ×3 (05:28→21:23)
[2022-07-11] MEDS: carvediloL 6.25 MG TABLET GTUBE SCH ×2 (09:28→18:13)
[2022-07-11] MEDS: cloNIDine HCL 0.1 MG TABLET GTUBE SCH ×2 (09:29→21:24)
[2022-07-11] MEDS: *HR* Digoxin 0.125 MG TABLET GTUBE SCH (09:29)
[2022-07-11] MEDS: clonazePAM 1 MG TABLET GTUBE SCH ×2 (09:29→21:24)
[2022-07-11] MEDS: Apixaban 5 MG TABLET GTUBE SCH ×2 (09:29→21:24)
[2022-07-11] MEDS: FLUoxetine HCl Oral Soln 20 MG/5 ML UDC GTUBE SCH (09:30)
[2022-07-11] MEDS: Cholecalciferol (D-3) 1,000 UNIT (25MCG) TABLET GTUBE SCH (09:30)
[2022-07-11] MEDS: lisinopriL 10 MG TABLET GTUBE SCH (09:30)
[2022-07-11] MEDS: Pantoprazole 40 MG VIAL IVP SCH (09:46)
[2022-07-11] MEDS: Insulin DETEMIR 100 UNIT/ML X5UNITS SUBQ SCH ×2 (09:46→21:29)
[2022-07-11] MEDS: Neosporin OINT 15 GM TUBE TP SCH ×3 (09:46→21:22)
[2022-07-11] MEDS: Nicotine 21 MG PATCH.TD24 TD SCH (09:46)
[2022-07-11] MEDS: Ciprofloxacin/Dex *EAR* Susp 7.5 ML BOTTLE TP SCH ×3 (09:46→21:22)
[2022-07-11] MEDS: D5% in 0.9% NACL 1,000 ML IVC SCH (11:01)
[2022-07-11] MEDS ORDERED: *HR* HYDROcodone/Acet 5/325 mg TABLET PO PRN (14:29)
[2022-07-11] MEDS: Morphine Sulfate 2 MG/ML SYRINGE IVP PRN (17:24)
[2022-07-11] MEDS: QUEtiapine Fumarate 100 MG TABLET GTUBE SCH (21:23)
[2022-07-11] MEDS: ARIPiprazole 10 MG TABLET GTUBE SCH (21:24)
[2022-07-12] MEDS: D5% in 0.9% NACL 1,000 ML IVC SCH ×2 (00:22→13:41)
[2022-07-12] MEDS: Insulin LISPRO 300 UNITS/3 ML VIAL SUBQ SCH ×3 (00:41→11:34)
[2022-07-12] MEDS: *HR* HYDROcodone/Acet 5/325 mg TABLET PO PRN ×2 (03:48→09:59)
[2022-07-12] MEDS: FLUoxetine HCl Oral Soln 20 MG/5 ML UDC GTUBE SCH (09:59)
[2022-07-12] MEDS: Pantoprazole 40 MG VIAL IVP SCH (09:59)
[2022-07-12] MEDS: Cholecalciferol (D-3) 1,000 UNIT (25MCG) TABLET GTUBE SCH (10:00)
[2022-07-12] MEDS: *HR* Digoxin 0.125 MG TABLET GTUBE SCH (10:00)
[2022-07-12] MEDS: Apixaban 5 MG TABLET GTUBE SCH ×2 (10:00→20:59)
[2022-07-12] MEDS: clonazePAM 1 MG TABLET GTUBE SCH ×2 (10:00→20:59)
[2022-07-12] MEDS: Nicotine 21 MG PATCH.TD24 TD SCH (10:00)
[2022-07-12] MEDS: lisinopriL 10 MG TABLET GTUBE SCH (10:01)
[2022-07-12] MEDS: cloNIDine HCL 0.1 MG TABLET GTUBE SCH ×2 (10:01→20:59)
[2022-07-12] MEDS: Ciprofloxacin/Dex *EAR* Susp 7.5 ML BOTTLE TP SCH ×3 (10:01→21:00)
[2022-07-12] MEDS: Neosporin OINT 15 GM TUBE TP SCH ×3 (10:01→21:58)
[2022-07-12] MEDS: Insulin DETEMIR 100 UNIT/ML X5UNITS SUBQ SCH ×2 (10:02→21:06)
[2022-07-12] MEDS: carvediloL 6.25 MG TABLET GTUBE SCH ×2 (10:06→15:34)
[2022-07-12] MEDS: Morphine Sulfate 2 MG/ML SYRINGE IVP PRN ×2 (13:50→20:11)
[2022-07-12] MEDS ORDERED: D10% in Water 500 ML IVC PRN (18:23)
[2022-07-12] MEDS: QUEtiapine Fumarate 100 MG TABLET GTUBE SCH (20:59)
[2022-07-12] MEDS: ARIPiprazole 10 MG TABLET GTUBE SCH (20:59)
[2022-07-13] MEDS: Insulin LISPRO 300 UNITS/3 ML VIAL SUBQ SCH ×4 (03:51→16:20)
[2022-07-13] MEDS: D5% in 0.9% NACL 1,000 ML IVC SCH ×2 (03:52→15:05)
[2022-07-13 05:53] LABS: VBG Ionized Calcium 1.23 mmol/L (1.15-1.35)
[2022-07-13 06:15] LABS: Alanine Aminotransferase 15 Units/L (7-52); Albumin 3.6 g/dL (3.5-5.7); Albumin/Globulin Ratio 1.5 (1.1-2.2); Alkaline Phosphatase 69 Units/L (34-104); Aspartate Amino Transferase 12 Units/L (13-39); BUN/Creatinine Ratio 18 (6-26); Bilirubin,Total 0.8 mg/dL (0.3-1.0); Blood Urea Nitrogen 12 mg/dL (6-20); Calcium 9.2 mg/dL (8.6-10.3); Carbon Dioxide 24 mEq/L (23-29); Chloride 109 mEq/L (98-107); Globulin 2.4 g/dL (2.4-3.5); Glucose 142 mg/dL (70-105); Magnesium 1.5 mg/dL (1.6-2.6); Osmolality,Calculated 294 (280-300); Phosphorous 3.3 mg/dL (2.7-4.5); Potassium 3.5 mEq/L (3.5-5.1); Sodium 141 mEq/L (136-145); Triglycerides 203 mg/dL (< 150)
[2022-07-13] MEDS: Insulin DETEMIR 100 UNIT/ML X5UNITS SUBQ SCH ×2 (08:33→20:17)
[2022-07-13] MEDS: carvediloL 6.25 MG TABLET GTUBE SCH ×2 (08:45→17:32)
[2022-07-13] MEDS: *HR* HYDROcodone/Acet 5/325 mg TABLET PO PRN ×3 (08:45→21:49)
[2022-07-13] MEDS: Apixaban 5 MG TABLET GTUBE SCH ×2 (08:46→20:17)
[2022-07-13] MEDS: Nicotine 21 MG PATCH.TD24 TD SCH (08:46)
[2022-07-13] MEDS: clonazePAM 1 MG TABLET GTUBE SCH ×2 (08:46→20:16)
[2022-07-13] MEDS: Pantoprazole 40 MG VIAL IVP SCH (08:46)
[2022-07-13] MEDS: *HR* Digoxin 0.125 MG TABLET GTUBE SCH (08:46)
[2022-07-13] MEDS: Cholecalciferol (D-3) 1,000 UNIT (25MCG) TABLET GTUBE SCH (08:46)
[2022-07-13] MEDS: Ciprofloxacin/Dex *EAR* Susp 7.5 ML BOTTLE TP SCH ×3 (08:46→20:18)
[2022-07-13] MEDS: lisinopriL 10 MG TABLET GTUBE SCH (08:46)
[2022-07-13] MEDS: FLUoxetine HCl Oral Soln 20 MG/5 ML UDC GTUBE SCH (08:47)
[2022-07-13] MEDS: Neosporin OINT 15 GM TUBE TP SCH ×3 (08:47→20:18)
[2022-07-13] MEDS ORDERED: Iopamidol - 370 500 ML MLS IVP ONE (13:55)
[2022-07-13] MEDS ORDERED: Iopamidol - 370 500 ML MLS PO ONE (15:43)
[2022-07-13] MEDS: QUEtiapine Fumarate 100 MG TABLET GTUBE SCH (20:16)
[2022-07-13] MEDS: ARIPiprazole 10 MG TABLET GTUBE SCH (20:16)
[2022-07-13] MEDS: cloNIDine HCL 0.1 MG TABLET GTUBE SCH (20:17)
[2022-07-14] MEDS: Insulin LISPRO 300 UNITS/3 ML VIAL SUBQ SCH ×5 (02:48→22:10)
[2022-07-14] MEDS: D5% in 0.9% NACL 1,000 ML IVC SCH ×2 (04:18→18:10)
[2022-07-14 04:35] LABS: Basophils % 0.5 %; Eosinophils % 0.7 %; Hematocrit 40.2 % (37.5-50.1); Hemoglobin 13.8 g/dL (12.9-16.9); Immature Granulocytes % 0.7 % (0-4); Lymphocytes # 1.7 K/mcL (0.6-4.6); Lymphocytes % 27.1 %; Mean Corpuscular HGB Conc 34.3 g/dL (31.6-35.5); Mean Corpuscular Hemoglobin 30.6 pg (28.0-33.3); Mean Corpuscular Volume 89.1 fL (83.0-100.0); Mean Platelet Volume 10.2 fL (9.4-12.4); Monocytes # 0.4 K/mcL (0.0-1.3); Monocytes % 5.7 %; Platelet Count 254 K/mcL (140-400); Red Blood Count 4.51 M/mcL (4.19-5.50); Red Cell Distribution Width 14.2 % (11.5-14.5); Segmented Neutrophils % 65.3 %; White Blood Count 6.1 K/mcL (4.3-11.1)
[2022-07-14 04:56] LABS: Alanine Aminotransferase 12 Units/L (7-52); Albumin 3.6 g/dL (3.5-5.7); Albumin/Globulin Ratio 1.3 (1.1-2.2); Alkaline Phosphatase 69 Units/L (34-104); Aspartate Amino Transferase 9 Units/L (13-39); BUN/Creatinine Ratio 14 (6-26); Bilirubin,Total 0.8 mg/dL (0.3-1.0); Blood Urea Nitrogen 9 mg/dL (6-20); Calcium 9.4 mg/dL (8.6-10.3); Carbon Dioxide 25 mEq/L (23-29); Chloride 108 mEq/L (98-107); Globulin 2.7 g/dL (2.4-3.5); Glucose 165 mg/dL (70-105); Osmolality,Calculated 290 (280-300); Potassium 3.7 mEq/L (3.5-5.1); Sodium 139 mEq/L (136-145); Total Protein 6.3 g/dL (6.4-8.9)
[2022-07-14] MEDS: Nicotine 21 MG PATCH.TD24 TD SCH (08:13)
[2022-07-14] MEDS: Pantoprazole 40 MG VIAL IVP SCH (08:13)
[2022-07-14] MEDS: *HR* HYDROcodone/Acet 5/325 mg TABLET PO PRN ×2 (08:13→14:46)
[2022-07-14] MEDS: *HR* Digoxin 0.125 MG TABLET GTUBE SCH (08:13)
[2022-07-14] MEDS: clonazePAM 1 MG TABLET GTUBE SCH ×2 (08:13→22:47)
[2022-07-14] MEDS: lisinopriL 10 MG TABLET GTUBE SCH (08:13)
[2022-07-14] MEDS: FLUoxetine HCl Oral Soln 20 MG/5 ML UDC GTUBE SCH (08:14)
[2022-07-14] MEDS: Cholecalciferol (D-3) 1,000 UNIT (25MCG) TABLET GTUBE SCH (08:14)
[2022-07-14] MEDS: Insulin DETEMIR 100 UNIT/ML X5UNITS SUBQ SCH ×2 (08:14→22:48)
[2022-07-14] MEDS: Apixaban 5 MG TABLET GTUBE SCH (08:14)
[2022-07-14] MEDS: carvediloL 6.25 MG TABLET GTUBE SCH ×2 (08:14→17:20)
[2022-07-14] MEDS: Neosporin OINT 15 GM TUBE TP SCH ×3 (08:15→22:48)
[2022-07-14] MEDS: Ciprofloxacin/Dex *EAR* Susp 7.5 ML BOTTLE TP SCH ×3 (08:15→22:48)
[2022-07-14 15:40] LABS: INR 1.7; Prothrombin Time 19.3 Seconds (9.4-12.1)
[2022-07-14 15:42] LABS: Activated Partial Thrombo Time 42.1 Seconds (26.0-36.0)
[2022-07-14 15:49] LABS: Heparin anti-factor XA UFH 1.42 IU/mL (0.30-0.70)
[2022-07-14] MEDS ORDERED: Heparin 25,000UNIT/250ML 1/2NS 25,000 UNIT/250 ML IV.SOLN IVC SCH (17:00)
[2022-07-14] MEDS ORDERED: *HR* Heparin 5,000 UNIT/ML VIAL IVP PRN ×2 (17:00)
[2022-07-14] MEDS: Heparin 25,000UNIT/250ML 1/2NS 25,000 UNIT/250 ML IV.SOLN IVC SCH (17:21)
[2022-07-14] MEDS: ARIPiprazole 10 MG TABLET GTUBE SCH (22:47)
[2022-07-14] MEDS: QUEtiapine Fumarate 100 MG TABLET GTUBE SCH (22:47)
[2022-07-15] MEDS: Insulin LISPRO 300 UNITS/3 ML VIAL SUBQ SCH ×3 (00:36→12:46)
[2022-07-15] MEDS: D5% in 0.9% NACL 1,000 ML IVC SCH (06:26)
[2022-07-15 06:36] LABS: Basophils % 0.8 %; Eosinophils # 0.1 K/mcL (0.0-0.6); Hematocrit 36.1 % (37.5-50.1); Hemoglobin 12.7 g/dL (12.9-16.9); Immature Granulocytes % 0.2 % (0-4); Lymphocytes # 2.2 K/mcL (0.6-4.6); Lymphocytes % 44.3 %; Mean Corpuscular HGB Conc 35.2 g/dL (31.6-35.5); Mean Corpuscular Hemoglobin 31.5 pg (28.0-33.3); Mean Corpuscular Volume 89.6 fL (83.0-100.0); Mean Platelet Volume 9.6 fL (9.4-12.4); Monocytes # 0.4 K/mcL (0.0-1.3); Monocytes % 7.2 %; Neutrophils # 2.3 K/mcL (1.6-8.9); Platelet Count 210 K/mcL (140-400); Red Blood Count 4.03 M/mcL (4.19-5.50); Red Cell Distribution Width 14.4 % (11.5-14.5); Segmented Neutrophils % 46.5 %
[2022-07-15 06:55] LABS: BUN/Creatinine Ratio 14 (6-26); Blood Urea Nitrogen 8 mg/dL (6-20); Calcium 8.8 mg/dL (8.6-10.3); Carbon Dioxide 24 mEq/L (23-29); Chloride 110 mEq/L (98-107); Glucose 184 mg/dL (70-105); Magnesium 1.4 mg/dL (1.6-2.6); Osmolality,Calculated 293 (280-300); Phosphorous 2.5 mg/dL (2.7-4.5); Potassium 3.4 mEq/L (3.5-5.1); Sodium 140 mEq/L (136-145)
[2022-07-15 06:57] VITALS: BP 170/94; PULSE 48; TEMP 97.7; O2SAT 99
[2022-07-15] MEDS: lisinopriL 10 MG TABLET GTUBE SCH (07:43)
[2022-07-15] MEDS: clonazePAM 1 MG TABLET GTUBE SCH (07:43)
[2022-07-15] MEDS: Cholecalciferol (D-3) 1,000 UNIT (25MCG) TABLET GTUBE SCH (07:43)
[2022-07-15] MEDS: *HR* Digoxin 0.125 MG TABLET GTUBE SCH (07:43)
[2022-07-15] MEDS: Nicotine 21 MG PATCH.TD24 TD SCH (07:43)
[2022-07-15] MEDS: Pantoprazole 40 MG VIAL IVP SCH (07:43)
[2022-07-15] MEDS: FLUoxetine HCl Oral Soln 20 MG/5 ML UDC GTUBE SCH (07:43)
[2022-07-15] MEDS: *HR* HYDROcodone/Acet 5/325 mg TABLET PO PRN (07:43)
[2022-07-15] MEDS: carvediloL 6.25 MG TABLET GTUBE SCH (07:47)
[2022-07-15] MEDS: Ciprofloxacin/Dex *EAR* Susp 7.5 ML BOTTLE TP SCH (07:47)
[2022-07-15] MEDS: Neosporin OINT 15 GM TUBE TP SCH (07:47)
[2022-07-15] MEDS: Insulin DETEMIR 100 UNIT/ML X5UNITS SUBQ SCH (09:00)
[2022-07-15] MEDS: Heparin 25,000UNIT/250ML 1/2NS 25,000 UNIT/250 ML IV.SOLN IVC SCH (10:50)
[2022-07-15] MEDS ORDERED: Clinimix E 5%-15% SOLUTION 2,000 ML with MVI, adult with vitamin K 10 ML IVC SCH (17:00)
== END 2022-07-15 15:39 | disposition short-term general hospital (02) | DRG 206 ==
LOC: EMEROOARM 15:25 → 3ANU 15:25 → SUATTDRO 22:01 → 3ANU 23:15 → SUATTDRO 06-28 07:34
PROVIDERS: ADMIT Internal Medicine; ATTEND Internal Medicine